=== PATIENT | female | born 1990 | race Caucasian/White ===

== ENCOUNTER 2021-06-23 14:37 | Emergency (ER) | payer OTHER, SELFPAY ==
[2021-06-23 14:48] VITALS: BP 121/69; PULSE 83; RESP 14; TEMP 37.3; O2SAT 100
--- NOTE | 2021-06-23 15:01 | ED.EAR ---
HPI - Ear Problem General Chief complaint: Ear Stated complaint: Left Ear Pain Time Seen by Provider: 06/23/21 15:01 Source: patient History of Present Illness HPI Narrative: PATIENT PRESENTS WITH LEFT EAR PAIN. DENIES ANY OTHER INJURIES. NO DRAINAGE FROM EAR. NO HEARING LOSS. Related Data Home Medications Medication Instructions Recorded Confirmed norethindrone-e.estradiol-iron 1 tablet PO DAILY 06/23/21 06/23/21 [05/31 (28)] Allergies Allergy/AdvReac Type Severity Reaction Status Date / Time cephalexin [From Keflex] Allergy Rash Verified 06/23/21 14:57 latex Allergy Rash Verified 06/23/21 14:57 sulfamethoxazole Allergy Rash Verified 06/23/21 14:57 [From Bactrim] trimethoprim [From Bactrim] Allergy Rash Verified 06/23/21 14:57 Review of Systems Review of Systems: CONSTITUTIONAL: Denies fever, chills, or sweats. EYES: Denies visual changes, redness, or discharge. ENT: Denies rhinorrhea, congestion, sore throat, or otalgia. CARDIOVASCULAR: Denies chest pain, palpitations, or edema. RESPIRATORY: Denies cough or dyspnea. GASTROINTESTINAL: Denies abdominal pain, nausea, vomiting, or diarrhea. GENITOURINARY: Denies dysuria or hematuria. SKIN: Denies rash or itching. MUSCULOSKELETAL: Denies back pain, joint pain, or myalgia. NEUROLOGIC: Denies headache, numbness, or weakness. PSYCHIATRIC: Denies anxiety or depression. PMFSH Comments At time of signature, agree with nursing past medical, surgical, social and family history. There is no relevant family history pertinent to the presenting complaint Exam Narrative: GENERAL: Well-appearing, well-nourished, and in no acute distress. HEAD: Normocephalic, atraumatic. EYES: PERRLA and EOMI. ENT: Nares clear, no rhinorrhea or epistaxis. Mucous membranes moist. Right TM intact with good light reflex left TM bulging moderate erythremia to the left canal NECK: Supple. CHEST: Clear to auscultation. No respiratory distress. HEART: Regular rate and rhythm. No murmur heard. Normal peripheral pulses. ABDOMEN: Soft, nontender, nondistended, normal active bowel sounds. EXTREMITIES: Normal range of motion. No edema. SKIN: Warm, dry, no rash. NEURO: No focal deficits. Alert and oriented x3. [place] Coma Scale Eye Opening: Spontaneous 4 [place] Coma Scale Motor: Obeys Commands 6 [place] Coma Scale Verbal: Oriented 5 Jw Coma Scale Total 15 Course Course Level of Care: Express Care Visit Medical Decision Making Vital Signs Vital Signs: Addressed elevated BP today. Today's blood pressure higher than recommended range. 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 Currently patient denies headache, dizziness, vision changes, CP or shortness of breath. Critical Care Time Critical Care Time Critical Care Time: No Discharge Plan Discharge Clinical Impression: Otitis media Patient Disposition: Home, Self-Care Condition: Stable Instructions: Antibiotic Form, Earache (ED) Additional Instructions: Take antibiotic as prescribed until gone Tylenol and ibuprofen as needed for pain or discomfort Flonase 2 sprays each nostril twice a day for the next 2 weeks Follow-up with primary care provider as needed If any new or worsening symptoms go to ER immediately for further evaluation treatment Prescriptions: New amoxicillin 875 mg tablet 875 mg PO Q12H 7 Days Qty: 14 RF: 0 No Action norethindrone-e.estradiol-iron [05/31 (28)] 1 mg-20 mcg (21)/75 mg (7) Tablet 1 tablet PO DAILY RF: 0 Follow-up/Referrals: Paulo,Jacquelyn Arroyo DO [Primary Care Provider] -
== END 2021-06-23 15:12 | disposition home or self-care (01) ==
PROVIDERS: Emergency Provider Nurse Practitioner Family; PCP Family Medicine
DX: H66.92 Otitis media, unspecified, left ear (principal)
CPT/HCPCS: 99213; G0463

== ENCOUNTER 2024-07-07 08:35 | Emergency (ER) | payer OTHER, SELFPAY ==
[2024-07-07 08:49] VITALS: BP 133/58; PULSE 96; RESP 16; TEMP 36.6; O2SAT 100
--- OUTSIDE RECORDS SUMMARY | 2024-07-07 08:59 | XMS_ITS | Data Portability ---
[facility] Address [address] [place] [address] Care Team Providers Care Tape Keller Operator Name Role Phone JACK GORDILLO Agri Business Agent Assessment Encounter Date Assessment Date Assessment LastModified by Organization Details LastModified Time 04/15/2024 04/15/2024 will get materniti 21 precerted NOB visit in 2 weeks Not available 04/15/2024 11:55:39 04/28/2024 04/28/2024 9 weeks, early US for dates and nuchal fold thickness Not available 04/28/2024 12:01:51 05/20/2024 05/20/2024 9 4/7 weeks, OB labs and materniti testing today Not available 05/20/2024 11:11:30 06/01/2024 06/01/2024 11 weeks, good FHTs today materniti test normal f/u 4 weeks Not available 06/01/2024 10:20:03 06/29/2024 06/29/2024 15 weeks, will be thitd baby doing well Not available 06/29/2024 10:33:13 Plan of Treatment Reminders Order Date Submit Date Provider Last Modified By Organization Details Last Modified Time Details Appointments OB 15 2024 09:00A Himanshu Gordillo MD Not available Not available Not available Lab urinalysi s, dipstick 2024 025 In-Office Order, Internal Use Only DO Not Attach Compendium DO Not Attach Compendium, Do Not Delete/merge, [id number] 06/29/2024 10:26:43 urinalysi s, dipstick 2024 025 In-Office Order, Internal Use Only DO Not Attach Compendium DO Not Attach Compendium, Do Not Delete/merge, [id number] 06/01/2024 11:20:46 urinalysi s, complete 2024 025 [facility] [address] [address], [place], [address], 06/04/2024 11:11:37 urinalysi s, dipstick 2024 025 In-Office Order, Internal Use Only DO Not Attach Compendium DO Not Attach Compendium, Do Not Delete/merge, [id number] 05/20/2024 11:06:06 HSV 2 IgG Ab, QN, IA, serum 2024 025 [facility], [address] [place] [address], [address], 05/26/2024 16:13:36 aneuploid y risk and X & Y analysis, chromosom e specific circulati ng cell free (CCF) DNA, maternal serum 2024 025 [facility], [address] [place], [place] [address], [address], [place], [address], 05/26/2024 16:13:37 panel 2023 024 [facility]gr[facility], [address] [facility] [address], [address], [place], [address], 05/27/2024 09:15:36 drug screen, urine 2023 024 [facility], [address] [address], [place], [address], 06/04/2024 11:11:36 HSV 2 IgG Ab, QN, IA, serum 2023 024 [facility], [address] [facility], [facility] [address], [place], [address], 05/27/2024 09:15:37 Referral None recorded. Procedures None recorded. Surgeries None recorded. Imaging US, obstetric , maternal evaluatio n + anatomy - Single gestation 2024 025 [facility], [address] [facility], [place], [address], 06/29/2024 10:26:54 US, obstetric , 1st trimester 2023 024 [facility] (Scheduling), [address], [place], [address], 05/10/2024 14:50:49 Medication Orders None recorded. Patient TargetsNo targets recorded. Patient Instructions Encounter Date Encounter Id Patient Instructions Last Modified By Organization Details Last Modified Time 04/28/2024 [id number] edinburgh depression scale* Not available 04/28/2024 11:49:01 Reason for Referral None Reported. Results Created Date Observation Date Name Description Value Unit Range Abnormal Flag Note LastModifiedBy Organization Detail LastModifiedTime 04/28/20 24 04/28/2024 edinb urgh postn atal depre ssion scale * Score 1 Not Available In-Office Order Internal Use Only DO Not Attach Compendium DO Not Attach Compendium, Do Not Delete/merge, [id number] 04/28/2024 11:33:44 05/20/19 25 05/21/2024 INTER PRETA TION: interpretati on: Commen t Not infec maryana with HCV unles s early or acute infec tion is suspe cted (whic h may be delay ed in an immun ocomp romis ed indiv idual ), or other evide nce exist s to indic ate HCV infec tion. Not Available [facility] [address] [facility], [place], [address], 05/26/2024 16:13:34 05/20/19 25 05/21/2024 HCV ANTIB NESSA RFX TO QUANT PCR HCV Ab NON REACTI VE nonrea ctive Not Available [facility] [address] [facility], [place], [address], 05/26/2024 16:13:35 05/20/19 25 05/21/2024 HSV-2 AB, IGG hsv 2 IgG, type spec NON REACTI VE nonrea ctive Ple ase note refer ence inter zohaib tijerina e Curre nt guide lines and recom menda tions do not recom mend routi ne scree desiree for HSV-2 in asymp tomat ic indiv idual s, inclu ding those that are pregn ant. The detec tion of HSV-2 IgG antib odies in a singl e sampl e indic ates previ ous expos ure to HSV-2 but does not give infor matio n as to the site of HSV infec tion or the timin g of expos ure. The predi ctive value of posit sergio and negat sergio resul ts depen ds on the popul ation 's preva lence and the prete st likel ihood of HSV-2 . HSV-2 IgG testi ng perfo rmed using the [employer] HSV-2 IgG assay . Not Available [facility] [address] [facility], [place], [address], 05/26/2024 16:13:36 05/20/19 25 05/26/2024 MATER NIT21 PLUS CORE gestation SINGLE TON Not Available [facility] [address] [facility], [place], [address], 05/26/2024 16:13:37 05/20/19 25 05/26/2024 MATER NIT21 PLUS CORE fraction NA Not Available [facility] [address] [facility], [place], [address], 05/26/2024 16:13:37 05/20/19 25 05/26/2024 MATER NIT21 PLUS CORE gestational age > or = 9W: COMMEN T Not Provi ded Not Available [facility] [address] [place], [address], 05/26/2024 16:13:37 05/20/19 25 05/26/2024 MATER NIT21 PLUS CORE test result - abnormal Test not perfo rmed. Not Available [facility] [address] [place], [address], 05/26/2024 16:13:37 05/20/19 25 05/26/2024 MATER NIT21 PLUS CORE laborer electroplating comments TNP Test not perfo rmed. Gallito adkins tests order ed. For inqui andrew, the physi luigi may conta ct Clien t Servi nely at [phone]. Not Available [facility] [address] [place], [address], 05/26/2024 16:13:37 05/20/19 25 05/26/2024 MATER NIT21 PLUS CORE approved by TNP Zach yuri mirza MD, PhD, [employer], Seque nom Labor atori es Not Available [facility] [address] [place], [address], 05/26/2024 16:13:37 05/20/19 25 05/26/2024 MATER NIT21 PLUS CORE negative predictive value TNP The Negat sergio Predi ctive Value (NPV) for triso my 21, 18, and 13 is great er than 99%. The NPV for SCA and ESS canno t be calcu lated as SCA and ESS are only repor maryana when an abnor malit y is detec maryana. Not Available [facility] [address] [place], [address], 05/26/2024 16:13:37 05/20/19 25 05/26/2024 MATER NIT21 PLUS CORE about the test TNP The Mater niT(R ) 21 PLUS labor atory -deve loped test (LDT) derrick zes circu latin g cell- free DNA from a mater nal blood sampl e. This test is used for scree desiree purpo ses and not diagn ostic . Clini ascencion corre latio n is recom fernandez d. Valid ation data on twin pregn ancie s is limit ed and the abili ty of this test to detec t aneup loidy in highe r multi ple gesta tions has not yet been valid ated. Not Available [facility] [address] [facility], [place], [address], 05/26/2024 16:13:37 05/20/19 25 05/26/2024 MATER NIT21 PLUS CORE test method TNP Circu latin g cell- free DNA was purif ied from the plasm a compo nent of mater nal blood . The extra cted DNA was then conve rted into a [employer] luis ry for aneup loidy derrick sis of chrom osome s 21, 18, and 13 via next gener ation seque ncing .[1] Optio nal findi ngs based on the test order inclu de sex chrom osome aneup loidy (SCA) [2], and enhan alfonso seque ncing serie s (ESS) [3], which will only be repor maryana on as an addit ional findi ng when an abnor malit y is detec maryana. SCA testi ng inclu manuel infor matio n on X and Y repre senta tion, while ESS testi ng inclu manuel delet ions in selec maryana regio ns (22q, 15q, 11q, 8q, 5p, 4p, 1p) and triso my of chrom osome s 16 and 22. Not Available [facility] [address] [facility], [place], [address], 05/26/2024 16:13:37 05/20/19 25 05/26/2024 MATER NIT21 PLUS CORE performance TNP The perfo rmanc e hugh cteri stics of the Mater niT(R ) 21 PLUS labor atory -deve loped test (LDT) have been deter mined in a clini ascencion valid ation study with pregn ant women at incre ased risk for chrom osoma l aneup loidy .[1-4 ] Not Available [facility] [address] [facility], [place], [address], 05/26/2024 16:13:37 05/20/19 25 05/26/2024 MATER NIT21 PLUS CORE performance characterist ics TNP ----- ----- ----- ----- ----- ----- ----- ----- ----- ----- ----- ---- ! Sex ! Accur acy: 99.4% ! !---- ----- ----- ----- ----- ----- ----- ----- ----- ----- ----- ---! ! Regio n (ann lassiter syndr ome) ! Est. Sens# ! Est. Spec ! !---- ----- ----- ----- ----- ----- ----- ----- ----- ----- ----- ---! ! Neno my 21 (Jordan Syndr ome) ! 99.1% ! 99.9% ! !---- ----- ----- ----- ----- ----- ----- ----- ----- ----- ----- ---! ! Neno my 18 (Nataly murcia Syndr ome) ! >99.9 % ! 99.6% ! !---- ----- ----- ----- ----- ----- ----- ----- ----- ----- ----- ---! ! Neno my 13 (Pata u Syndr ome) ! 91.7% ! 99.7% ! !---- ----- ----- ----- ----- ----- ----- ----- ----- ----- ----- ---! ! Sex Chrom osome Aneup justin es## ! 96.2% ! 99.7% ! !---- ----- ----- ----- ----- ----- ----- ----- ----- ----- ----- ---! * As repor maryana in ISCA datab ase nstd3 7 [http [email or web address] [email or web address].nc [email or web address] .[facility] .gov/ dbvar /stud ies/n std37 / ] # Estim ated Sensi tivit y. Sensi tivit y estim ated acros s the obser gatito size distr ibuti on of each syndr ome [per ISCA datab ase nstd3 7] and acros s the range of fract ions obser gatito in routi ne clini ascencion NIPT. Actua l sensi tivit y can also be influ enced by other facto rs such as the size of the event , total seque nce count s, ampli ficat ion bias, or seque nce bias. ## Singl eton gesta tion only. Not Available [facility] [address] [facility], [place], [address], 05/26/2024 16:13:37 05/20/19 25 05/26/2024 MATER NIT21 PLUS CORE limitations of the test TNP While the resul ts of these tests are highl y relia ble, disco rdant resul ts, inclu ding inacc urate sex predi ction , may occur due to place ntal, mater nal, or mosai cism or neopl asm; vanis natalee twin; prior mater nal organ trans plant ; or other cause s. These tests are scree desiree tests and not diagn ostic ; they do not repla ce the accur acy and preci eleanor of prena daniela diagn osis with CVS or amnio cente sis. A patie nt with a posit sergio test resul t shoul d be refer red for andrea ic couns eling and offer ed invas sergio prena daniela diagn osis for confi rmati on of test resul ts.[5 ] The resul ts of this testi ng, inclu ding the benef its and limit ation s, shoul d be discu ssed with a quali fied healt hcare provi ilana. Pregn miki manag ement decis ions, inclu ding termi natio n of the pregn miki, shoul d not be based on the resul ts of these tests alone . The healt hcare provi ilana is respo nsibl e for the use of this infor matio n in the manag ement of their patie nt. Sex chrom osoma l aneup loidi es are not repor table for known multi ple gesta tions . A negat sergio resul t does not ensur e an unaff ected pregn miki nor does it exclu de the possi bilit y of other chrom osoma l abnor malit ies or defec ts which are not a part of these tests . An uninf ormat sergio resul t may be repor maryana, the cause s of which may inclu de, but are not limit ed to, insuf ficie nt seque ncing cover age, noise or artif acts in the regio n, ampli ficat ion or seque ncing bias, or insuf ficie nt fract ion. These tests are not inten ded to ident brittney pregn ancie s at risk for neura l tube defec ts or ventr al wall defec ts. Testi ng for whole chrom osome abnor malit ies (incl uding sex chrom osome s) and for subch romos omal abnor malit ies could lead to the poten tial disco very of both and mater nal genom ic abnor malit ies that could have major , minor , or no, clini ascencion signi fican ce. Evalu ating the signi fican ce of a posit sergio or a non-r eport able resul t may invol ve both invas sergio testi ng and addit ional studi es on the mothe r. Such inves tigat ions may lead to a diagn osis of mater nal chrom osoma l or subch romos omal abnor malit ies, which on occas ion may be assoc iated with benig n or malig nant mater nal neopl asms. These tests may not accur ately ident brittney tripl oidy, carol alfonso rearr angem ents, or the preci se locat ion of subch romos omal dupli catio ns or delet ions; these may be detec maryana by prena daniela diagn osis with CVS or amnio cente sis. The abili ty to repor t resul ts may be impac maryana by mater nal BMI, mater nal weigh t, mater nal syste gabriel lupus eryth emato cristian (SLE) and/o r by certa in pharm aceut ical agent s such as low molec ular weigh t hepar in (for examp le: Loven ox(R) , Xapar in(R) , Clexa ne(R) and Fragm in(R) ). Not Available [facility] [address] [facility], [place], [address], 05/26/2024 16:13:37 05/20/19 25 05/26/2024 MATER NIT21 PLUS CORE note TNP [employer] is a subsi diary of Labor atory Corpo ratio n of [employer] edith long, using the brand [employer]. This test was devel oped and its perfo rmanc e hugh cteri stics deter mined by efw-suhl rp. It has not been clear ed or appro gatito by the Food and Drug Admin istra tion. This labor atory is certi fied under the Clini ascencion Labor atory Impro vemen t Amend ments (CLIA ) as quali fied to perfo rm high compl exity clini ascencion labor atory testi ng and accre dited by the [place] [employer] S[pecialists can Patho logis ts (CAP) . Not Available [facility] [address] [facility], [place], [address], 05/26/2024 16:13:37 05/20/19 25 05/26/2024 MATER NIT21 PLUS CORE references TNP 1. Thor RAMOS, et al. Andrea Med. 2012; 14(3) :296- 305. 2. George WOODRUFF, et al. Prena t Diag. 2013; 33(6) :591- 597. 3. Tom Alcantara et al. Clin Chem. 2015 Apr;6 1(4): 608-6 16. 4. Thor RAMOS, et al. Andrea Med. 2011; 13(11 ):913 -920. 5. ACOG/ SMFM Pract ice Bulle tin No. 226, Feb 2020. Not Available [facility] [address] [facility], [place], [address], 05/26/2024 16:13:37 05/20/19 25 05/26/2024 MATER NIT21 PLUS CORE pdf . Not Available [facility] [address] [place], [address], 05/26/2024 16:13:37 05/20/19 25 05/21/2024 CBC WITH DIFFE RENTI AL/PL ATELE T WBC 8.8 x10e3 /uL 3.4-10 .8 Not Available [facility] [address] [facility], [place], [address], 05/26/2024 16:13:38 05/20/19 25 05/21/2024 CBC WITH DIFFE RENTI AL/PL ATELE T RBC 4.68 x10e6 /uL 3.77-5 .28 Not Available [facility] [address] [place], [address], 05/26/2024 16:13:38 05/20/19 25 05/21/2024 CBC WITH DIFFE RENTI AL/PL ATELE T hemoglobin 13.9 g/dL 11.1-1 5.9 Not Available [facility] [address] [place], [address], 05/26/2024 16:13:38 05/20/19 25 05/21/2024 CBC WITH DIFFE RENTI AL/PL ATELE T hematocrit 41.7 % 34.0-4 6.6 Not Available [facility] [address] [facility], [place], [address], 05/26/2024 16:13:38 05/20/19 25 05/21/2024 CBC WITH DIFFE RENTI AL/PL ATELE T MCV 89 fL 79-97 Not Available [facility] [address] [facility], [place], [address], 05/26/2024 16:13:38 05/20/19 25 05/21/2024 CBC WITH DIFFE RENTI AL/PL ATELE T MCH 29.7 pg 26.6-3 3.0 Not Available [facility] [address] [facility], [place], [address], 05/26/2024 16:13:38 05/20/19 25 05/21/2024 CBC WITH DIFFE RENTI AL/PL ATELE T MCHC 33.3 g/dL 31.5-3 5.7 Not Available [facility] [address] [place], [address], 05/26/2024 16:13:38 05/20/19 25 05/21/2024 CBC WITH DIFFE RENTI AL/PL ATELE T RDW 12.6 % 11.7-1 5.4 Not Available [facility] [address] [place], [address], 05/26/2024 16:13:38 05/20/19 25 05/21/2024 CBC WITH DIFFE RENTI AL/PL ATELE T platelets 285 x10e3 /uL 150-45 0 Not Available [facility] [address] [place], [address], 05/26/2024 16:13:38 05/20/19 25 05/21/2024 CBC WITH DIFFE RENTI AL/PL ATELE T neutrophils 65 % notest ab. Not Available [facility] [address] [facility], [place], [address], 05/26/2024 16:13:38 05/20/19 25 05/21/2024 CBC WITH DIFFE RENTI AL/PL ATELE T lymphs 22 % notest ab. Not Available [facility] [address] [facility], [place], [address], 05/26/2024 16:13:38 05/20/19 25 05/21/2024 CBC WITH DIFFE RENTI AL/PL ATELE T monocytes 8 % notest ab. Not Available [facility] [address] [facility], [place], [address], 05/26/2024 16:13:38 05/20/19 25 05/21/2024 CBC WITH DIFFE RENTI AL/PL ATELE T eos 3 % notest ab. Not Available [facility] [address] [facility], [place], [address], 05/26/2024 16:13:38 05/20/19 25 05/21/2024 CBC WITH DIFFE RENTI AL/PL ATELE T basos 1 % notest ab. Not Available [facility] [address] [facility], [place], [address], 05/26/2024 16:13:38 05/20/19 25 05/21/2024 CBC WITH DIFFE RENTI AL/PL ATELE T neutrophils (absolute) 5.8 x10e3 /uL 1.4-7. 0 Not Available [facility] [address] [facility], [place], [address], 05/26/2024 16:13:38 05/20/19 25 05/21/2024 CBC WITH DIFFE RENTI AL/PL ATELE T lymphs (absolute) 1.9 x10e3 /uL 0.7-3. 1 Not Available [facility] [address] [facility], [place], [address], 05/26/2024 16:13:38 05/20/19 25 05/21/2024 CBC WITH DIFFE RENTI AL/PL ATELE T monocytes(ab solute) 0.7 x10e3 /uL 0.1-0. 9 Not Available [facility] [address] [facility], [place], [address], 05/26/2024 16:13:38 05/20/19 25 05/21/2024 CBC WITH DIFFE RENTI AL/PL ATELE T eos (absolute) 0.3 x10e3 /uL 0.0-0. 4 Not Available [facility] [address] [facility], [place], [address], 05/26/2024 16:13:38 05/20/19 25 05/21/2024 CBC WITH DIFFE RENTI AL/PL ATELE T baso (absolute) 0.1 x10e3 /uL 0.0-0. 2 Not Available [facility] [address] [facility], [place], [address], 05/26/2024 16:13:38 05/20/19 25 05/21/2024 CBC WITH DIFFE RENTI AL/PL ATELE T immature granulocytes 1 % notest ab. Not Available [facility] [address] [facility], [place], [address], 05/26/2024 16:13:38 05/20/19 25 05/21/2024 CBC WITH DIFFE RENTI AL/PL ATELE T immature grans (abs) 0.0 x10e3 /uL 0.0-0. 1 Not Available [facility] [address] [facility], [place], [address], 05/26/2024 16:13:38 05/20/19 25 05/21/2024 ANTIB NESSA SCREE N antibody screen NEGATI VE negati ve Not Available [facility] [address] [place], [address], 05/26/2024 16:13:40 05/20/19 25 05/21/2024 ABO GROUP ING AND RHO(D ) TYPIN G ABO grouping A Not Available [facility] [address] [place], [address], 05/26/2024 16:13:41 05/20/19 25 05/21/2024 ABO GROUP ING AND RHO(D ) TYPIN G Rh factor NEGATI VE Pleas e note: Prior recor ds for this patie nt's ABO / Rh type are not avail able for addit ional verif icati on. Not Available [facility] [address] [facility], [place], [address], 05/26/2024 16:13:41 05/20/19 25 05/21/2024 RUBEL LA ANTIB ODIES , IGG rubella antibodies, IgG 18.60 index immune >0.99 Non-i mmune <0.90 Equiv ocal 0.90 - 0.99 Immun e >0.99 Not Available [facility] [address] [place], [address], 05/26/2024 16:13:42 05/20/19 25 05/21/2024 HBSAG SCREE N HBsAg screen NEGATI VE negati ve Not Available [facility] [address] [place], [address], 05/26/2024 16:13:43 05/20/19 25 05/21/2024 RPR, RFX QN RPR/C ONFIR M TP RPR NON REACTI VE nonrea ctive Not Available [facility] [address] [place], [address], 05/26/2024 16:13:44 05/20/19 25 05/21/2024 HIV AB/P2 4 AG WITH REFLE X HIV Ab/P24 Ag screen NON REACTI VE nonrea ctive HIV-1 /HIV- 2 antib odies and HIV-1 p24 antig en were NOT detec maryana. There is no labor atory evide nce of HIV infec tion. HIV Negat sergio Not Available [facility] [address] [facility], [place], [address], 05/26/2024 16:13:45 05/20/19 25 05/28/2024 MATER NIT21 PLUS CORE gestation SINGLE TON Not Available [facility] [address] [facility], [place], [address], 05/28/2024 16:13:51 05/20/19 25 05/28/2024 MATER NIT21 PLUS CORE fraction 14% Not Available [facility] [address] [facility], [place], [address], 05/28/2024 16:13:51 05/20/1905/28/2024 MATER NIT21 PLUS CORE gestational age > or = 9W: COMMEN T Not Provi ded Not Available [facility] [address] [facility], [place], [address], 05/28/2024 16:13:51 05/20/19 25 05/28/2024 MATER NIT21 PLUS CORE test result NEGATI VE Not Available [facility] [address] [facility], [place], [address], 05/28/2024 16:13:51 05/20/1905/28/2024 MATER NIT21 PLUS CORE laborer electroplating comments COMMEN T This speci men showe d an expec maryana repre senta tion of chrom osome 21, 18 and 13 mater ial. Clini ascencion corre latio n is sugrachel tariqd. Not Available [facility] [address] [facility], [place], [address], 05/28/2024 16:13:51 05/20/19 25 05/28/2024 MATER NIT21 PLUS CORE approved by CARLOS mirza MD, PhD, [facility] tor, Seque nom Labor atori es Not Available [facility] [address] [place], [address], 05/28/2024 16:13:51 05/20/19 25 05/28/2024 MATER NIT21 PLUS CORE trisomy 21 (down syndrome) NEGATI VE Not Available [facility] [address] [place], [address], 05/28/2024 16:13:51 05/20/19 25 05/28/2024 MATER NIT21 PLUS CORE trisomy 18 (kruger syndrome) NEGATI VE Not Available [facility] [address] [place], [address], 05/28/2024 16:13:51 05/20/19 25 05/28/2024 MATER NIT21 PLUS CORE trisomy 13 (patau syndrome) NEGATI VE Not Available [facility] [address] [place], [address], 05/28/2024 16:13:51 05/20/19 25 05/28/2024 MATER NIT21 PLUS CORE sex CARLOS Stoner Consi stent with Femal e Not Available [facility] [address] [place], [address], 05/28/2024 16:13:51 05/20/1905/28/2024 MATER NIT21 PLUS CORE negative predictive value NOTE The Negat sergio Predi ctive Value (NPV) for triso my 21, 18, and 13 is great er than 99%. The NPV for SCA and ESS canno t be calcu lated as SCA and ESS are only repor maryana when an abnor malit y is detec maryana. Not Available [facility] [address] [facility], [place], [address], 05/28/2024 16:13:51 05/20/1905/28/2024 MATER NIT21 PLUS CORE positive predictive value N/A Not Available [facility] [address] [facility], [place], [address], 05/28/2024 16:13:51 05/20/19 25 05/28/2024 MATER NIT21 PLUS CORE about the test COMMEN T The Mater niT(R ) 21 PLUS labor atory -deve loped test (LDT) derrick zes circu latin g cell- free DNA from a mater nal blood sampl e. This test is used for scree desiree purpo ses and not diagn ostic . Clini ascencion corre latio n is recom fernandez d. Valid ation data on twin pregn ancie s is limit ed and the abili ty of this test to detec t aneup loidy in highe r multi ple gesta tions has not yet been valid ated. Not Available [facility] [address] [facility], [place], [address], 05/28/2024 16:13:51 05/20/1905/28/2024 MATER NIT21 PLUS CORE test method COMMEN T See Notes Circu latin g cell- free DNA was purif ied from the plasm a compo nent of mater nal blood . The extra cted DNA was then conve rted into a [employer] luis ry for aneup loidy derrick sis of chrom osome s 21, 18, and 13 via next gener ation seque ncing .[1] Optio nal findi ngs based on the test order inclu de sex chrom osome aneup loidy (SCA) [2], and enhan alfonso seque ncing serie s (ESS) [3], which will only be repor maryana on as an addit ional findi ng when an abnor malit y is detec maryana. SCA testi ng inclu manuel infor matio n on X and Y repre senta tion, while ESS testi ng inclu manuel delet ions in selec maryana regio ns (22q, 15q, 11q, 8q, 5p, 4p, 1p) and triso my of chrom osome s 16 and 22. Not Available [facility] [address] [facility], [place], [address], 05/28/2024 16:13:51 05/20/19 25 05/28/2024 MATER NIT21 PLUS CORE performance COMMEN T The perfo rmanc e hugh cteri stics of the Mater niT(R ) 21 PLUS labor atory -deve loped test (LDT) have been deter mined in a clini ascencion valid ation study with pregn ant women at incre ased risk for chrom osoma l aneup loidy .[1-4 ] Not Available [facility] [address] [facility], [place], [address], 05/28/2024 16:13:51 05/20/19 25 05/28/2024 MATER NIT21 PLUS CORE performance characterist ics NOTE ----- ----- ----- ----- ----- ----- ----- ----- ----- ----- ----- ---- ! Sex ! Accur acy: 99.4% ! !---- ----- ----- ----- ----- ----- ----- ----- ----- ----- ----- ---! ! Regio n (asso ciate d syndr ome) ! Est. Sens# ! Est. Spec ! !---- ----- ----- ----- ----- ----- ----- ----- ----- ----- ----- ---! ! Triso my 21 (Down Syndr ome) ! 99.1% ! 99.9% ! !---- ----- ----- ----- ----- ----- ----- ----- ----- ----- ----- ---! ! Neno my 18 (Edwa rds Syndr ome) ! >99.9 % ! 99.6% ! !---- ----- ----- ----- ----- ----- ----- ----- ----- ----- ----- ---! ! Neno my 13 (Pata u Syndr ome) ! 91.7% ! 99.7% ! !---- ----- ----- ----- ----- ----- ----- ----- ----- ----- ----- ---! ! Sex Chrom osome Aneup loidi es## ! 96.2% ! 99.7% ! !---- ----- ----- ----- ----- ----- ----- ----- ----- ----- ----- ---! * As repor maryana in ISCA datab ase nstd3 7 [http [email or web address] [email or web address]/ [email or web address] /stud ies/n std37 / ] # Estim ated Sensi tivit y. Sensi tivit y estim ated acros s the obser gatito size distr ibuti on of each syndr ome [per ISCA datab ase nstd3 7] and acros s the range of fract ions obser gatito in routi ne clini ascencion NIPT. Actua l sensi tivit y can also be influ enced by other facto rs such as the size of the event , total seque nce count s, ampli ficat ion bias, or seque nce bias. ## Singl eton gesta tion only. Not Available [facility] [address] [facility], [place], [address], 05/28/2024 16:13:51 05/20/19 25 05/28/2024 MATER NIT21 PLUS CORE limitations of the test COMMEN T While the resul ts of these tests are highl y relia ble, disco rdant resul ts, inclu ding inacc urate sex predi ction , may occur due to place ntal, mater nal, or mosai cism or neopl asm; vanis natalee twin; prior mater nal organ trans plant ; or other cause s. These tests are scree desiree tests and not diagn ostic ; they do not repla ce the accur acy and preci eleanor of prena daniela diagn osis with [facility] or amnio cente sis. A patie nt with a posit sergio test resul t shoul d be refer red for andrea ic couns eling and offer ed invas sergio prena daniela diagn osis for confi rmati on of test resul ts.[5 ] The resul ts of this testi ng, inclu ding the benef its and limit ation s, shoul d be discu ssed with a quali fied healt hcare provi ilana. Pregn miki manag ement decis ions, inclu ding termi natio n of the pregn miki, shoul d not be based on the resul ts of these tests alone . The healt hcare provi ilana is respo nsibl e for the use of this infor matio n in the manag ement of their patie nt. Sex chrom osoma l aneup loidi es are not repor table for known multi ple gesta tions . A negat sergio resul t does not ensur e an unaff ected pregn miki nor does it exclu de the possi bilit y of other chrom osoma l abnor malit ies or defec ts which are not a part of these tests . An uninf ormat sergio resul t may be repor maryana, the cause s of which may inclu de, but are not limit ed to, insuf ficie nt seque ncing cover age, noise or artif acts in the regio n, ampli ficat ion or seque ncing bias, or insuf ficie nt fract ion. These tests are not inten ded to ident brittney pregn ancie s at risk for neura l tube defec ts or ventr al wall defec ts. Testi ng for whole chrom osome abnor malit ies (incl uding sex chrom osome s) and for subch romos omal abnor malit ies could lead to the poten tial disco very of both and mater nal genom ic abnor malit ies that could have major , minor , or no, clini ascencion signi fican ce. Evalu ating the signi fican ce of a posit sergio or a non-r eport able resul t may invol ve both invas sergio testi ng and addit ional studi es on the mothe r. Such inves tigat ions may lead to a diagn osis of mater nal chrom osoma l or subch romos omal abnor malit ies, which on occas ion may be assoc iated with benig n or malig nant mater nal neopl asms. These tests may not accur ately ident brittney tripl oidy, carol alfonso rearr angem ents, or the preci se locat ion of subch romos omal dupli catio ns or delet ions; these may be detec maryana by prena daniela diagn osis with [facility] or amnio cente sis. The abili ty to repor t resul ts may be impac maryana by mater nal BMI, mater nal weigh t, mater nal syste gabriel lupus eryth emato cristian (SLE) and/o r by certa in pharm aceut ical agent s such as low molec ular weigh t hepar in (for examp le: Loven ox(R) , Xapar in(R) , Clexa ne(R) and Fragm in(R) ). Not Available [facility] [address] [facility], [place], [address], 05/28/2024 16:13:51 05/20/19 25 05/28/2024 MATER NIT21 PLUS CORE note COMMEN T See Notes [employer] is a subsi diary of Labor atory Corpo ratio n of [employer] n[employer], using the brand efw-suhl rp. This test was devel oped and its perfo rmanc e hugh cteri stics deter mined by [facility]. It has not been clear ed or appro gatito by the Food and Drug Admin istra tion. This labor atory is certi fied under the Clini ascencion Labor atory Impro vemen t Amend ments (CLIA ) as quali fied to perfo rm high compl exity clini ascencion labor atory testi ng and accre dited by the [place] [employer] [place] can Patho logis ts (CAP) . If there is futur e clini ascencion need for addin g Mater niT GENOM E testi ng, this speci men will be avail able until term. [facility] sampl es will not be retai ramírez beyon d 60 days. [facility] patie nts will have to send a new sampl e for re-se quenc ing ([facility] Test Code: 27099 4). Not Available [facility] [address] [facility], [place], [address], 05/28/2024 16:13:51 05/20/19 25 05/28/2024 MATER NIT21 PLUS CORE references COMMEN T 1. Thor RAMOS, et al. Andrea Med. 2012; 14(3) :296- 305. 2. George WOODRUFF, et al. Prena t Diag. 2013; 33(6) :591- 597. 3. Tom C, et al. Clin Chem. 2015 Aug;6 1(4): 608-6 16. 4. Thor RAMOS, et al. Andrea Med. 2011; 13(11 ):913 -920. 5. ACOG/ [facility] Pract ice Bulle tin No. 226, Feb 2020. Not Available [facility] [address] [facility], [place], [address], 05/28/2024 16:13:51 05/20/19 25 05/28/2024 MATER NIT21 PLUS CORE pdf . Not Available [facility] [address] [facility], [place], [address], 05/28/2024 16:13:51 0105/26/2024 WRITT EN AUTHO RIZAT ION written authorizatio n Carlos Leblanc en Autho rizat ion Recei gatito. Autho rizat ion recei gatito from [facility] ON /[facility] 05-26 Logge d by Petey Spencer Not Available [facility] [address] [facility], [place], [address], 05/28/2024 16:13:52 05/20/1905/20/2024 urina lysis , dipst ick Protein Trace Not Available In-Office Order Internal Use Only DO Not Attach Compendium DO Not Attach Compendium, Do Not Delete/merge, [id number] 05/20/2024 10:59:36 05/20/19 25 05/20/2024 urina lysis , dipst ick Glucose Negati ve Not Available In-Office Order Internal Use Only DO Not Attach Compendium DO Not Attach Compendium, Do Not Delete/merge, [id number] 05/20/2024 10:59:36 06/01/19 25 06/02/2024 CT, NG, TRICH VAG BY RAJAT chlamydia by RAJAT NEGATI VE negati ve Not Available [facility] [address] [facility], [place], [address], 06/04/2024 11:11:34 06/01/19 25 06/02/2024 CT, NG, TRICH VAG BY RAJAT gonococcus by RAJAT NEGATI VE negati ve Not Available [facility] [address] [place], [address], 06/04/2024 11:11:34 06/01/19 25 06/02/2024 CT, NG, TRICH VAG BY RAJAT trich vag by RAJAT NEGATI VE negati ve Not Available [facility] [address] [facility], [place], [address], 06/04/2024 11:11:34 06/01/19 25 06/02/2024 MICRO SCOPI C EXAMI NATIO N WBC 0-5 /hpf 0-5 Not Available [facility] [address] [facility], [place], [address], 06/04/2024 11:11:35 06/01/19 25 06/02/2024 MICRO SCOPI C EXAMI NATIO N RBC 0-2 /hpf 0-2 Not Available [facility] [address] [facility], [place], [address], 06/04/2024 11:11:35 06/01/19 25 06/02/2024 MICRO SCOPI C EXAMI NATIO N epithelial cells (non renal) >10 /hpf 0-10 abnormal Not Available [facility] [address] [facility], [place], [address], 06/04/2024 11:11:35 06/01/19 25 06/02/2024 MICRO SCOPI C EXAMI NATIO N casts None seen /lpf nonese en Not Available [facility] [address] [facility], [place], [address], 06/04/2024 11:11:35 06/01/19 25 06/02/2024 MICRO SCOPI C EXAMI NATIO N bacteria Modera te nonese en/few abnormal Not Available [facility] [address] [facility], [place], [address], 06/04/2024 11:11:35 06/01/19 25 06/01/2024 [id number] 2 9+OXY CODON E+WHEEL GRINDER -SCR please note: COMMEN T This assay provi manuel a preli minar y uncon firme d derrick tical test resul t that may be suita ble for clini ascencion manag ement of [place] nts in certa in situa tions . Drug- test resul ts shoul d be inter prete d in the mirella xt of clini ascencion infor awa n. [place] nt metab olic varia bles, speci fic drug chemi stry, and speci men hugh cteri stics can affec t test outco me. Techn ical consu ltati on is avail able if a test resul t is incon siste nt with an expec maryana outco me. Email : [email or web address] Phone : [phone] Not Available [facility] [address] [place], [address], 06/04/2024 11:11:36 06/01/19 25 06/03/2024 [id number] 2 9+OXY CODON E+WHEEL GRINDER -SCR amphetamines screen, urine NEGATI VE NG/mL cutoff =1000 Not Available [facility] [address] [place], [address], 06/04/2024 11:11:36 06/01/19 25 06/03/2024 [id number] 2 9+OXY CODON E+WHEEL GRINDER -SCR barbiturates screen, urine NEGATI VE NG/mL cutoff =200 Not Available [facility] [address] [place], [address], 06/04/2024 11:11:36 06/01/19 25 06/03/2024 [id number] 2 9+OXY CODON E+WHEEL GRINDER -SCR benzodiazepi lilia screen, urine NEGATI VE NG/mL cutoff =200 Not Available [facility] [address] [place], [address], 06/04/2024 11:11:36 06/01/19 25 06/03/2024 [id number] 2 9+OXY CODON E+WHEEL GRINDER -SCR cannabinoid screen, urine POSITI VE NG/mL cutoff =20 abnormal Not Available [facility] [address] [place], [address], 06/04/2024 11:11:36 06/01/19 25 06/03/2024 [id number] 2 9+OXY CODON E+WHEEL GRINDER -SCR cocaine (metab.) screen, urine NEGATI VE NG/mL cutoff =300 Not Available [facility] [address] [facility], [place], [address], 06/04/2024 11:11:36 06/01/19 25 06/03/2024 [id number] 2 9+OXY CODON E+WHEEL GRINDER -SCR opiate screen, urine NEGATI VE NG/mL cutoff =300 Opiat e test inclu manuel Codei ne, Morph ine, Filer morph one, Filer codon e. Not Available [facility] [address] [place], [address], 06/04/2024 11:11:36 06/01/19 25 06/03/2024 [id number] 2 9+OXY CODON E+WHEEL GRINDER -SCR oxycodone/ox ymorphone, urine NEGATI VE NG/mL cutoff =100 Test inclu manuel Oxyco done and Oxymo rphon e Not Available [facility] [address] [place], [address], 06/04/2024 11:11:36 06/01/19 25 06/03/2024 [id number] 2 9+OXY CODON E+WHEEL GRINDER -SCR phencyclidin e screen, urine NEGATI VE NG/mL cutoff =25 Not Available [facility] [address] [place], [address], 06/04/2024 11:11:36 06/01/19 25 06/03/2024 [id number] 2 9+OXY CODON E+WHEEL GRINDER -SCR methadone screen, urine NEGATI VE NG/mL cutoff =300 Not Available [facility] [address] [place], [address], 06/04/2024 11:11:36 06/01/19 25 06/03/2024 [id number] 2 9+OXY CODON E+WHEEL GRINDER -SCR propoxyphene screen, urine NEGATI VE NG/mL cutoff =300 Not Available [facility] [address] [place], [address], 06/04/2024 11:11:36 06/01/19 25 06/03/2024 [id number] 2 9+OXY CODON E+WHEEL GRINDER -SCR creatinine, urine 81.2 mg/dL 20.0-3 00.0 Not Available [facility] [address] [facility], [place], [address], 06/04/2024 11:11:36 06/01/19 25 06/03/2024 [id number] 2 9+OXY CODON E+WHEEL GRINDER -SCR pH, urine 6.3 4.5-8. 9 Not Available [facility] [address] [place], [address], 06/04/2024 11:11:36 06/01/19 25 06/02/2024 URINA LYSIS , COMPL ETE specific gravity 1.016 1.005- 1.030 Not Available [facility] [address] [place], [address], 06/04/2024 11:11:37 06/01/19 25 06/02/2024 URINA LYSIS , COMPL ETE pH 6.5 5.0-7. 5 Not Available [facility] [address] [place], [address], 06/04/2024 11:11:37 06/01/19 25 06/02/2024 URINA LYSIS , COMPL ETE urine-color YELLOW yellow Not Available [facility] [address] [place], [address], 06/04/2024 11:11:37 06/01/19 25 06/02/2024 URINA LYSIS , COMPL ETE appearance CLEAR clear Not Available [facility] [address] [place], [address], 06/04/2024 11:11:37 06/01/19 25 06/02/2024 URINA LYSIS , COMPL ETE WBC esterase 1+ negati ve abnormal Not Available [facility] [address] [facility], [place], [address], 06/04/2024 11:11:37 06/01/19 25 06/02/2024 URINA LYSIS , COMPL ETE protein NEGATI VE negati ve/tra ce Not Available [facility] [address] [facility], [place], [address], 06/04/2024 11:11:37 06/01/19 25 06/02/2024 URINA LYSIS , COMPL ETE glucose NEGATI VE negati ve Not Available [facility] [address] [facility], [place], [address], 06/04/2024 11:11:37 06/01/19 25 06/02/2024 URINA LYSIS , COMPL ETE ketones NEGATI VE negati ve Not Available [facility] [address] [facility], [place], [address], 06/04/2024 11:11:37 06/01/19 25 06/02/2024 URINA LYSIS , COMPL ETE occult blood NEGATI VE negati ve Not Available [facility] [address] [facility], [place], [address], 06/04/2024 11:11:37 06/01/19 25 06/02/2024 URINA LYSIS , COMPL ETE bilirubin NEGATI VE negati ve Not Available [facility] [address] [place], [address], 06/04/2024 11:11:37 06/01/19 25 06/02/2024 URINA LYSIS , COMPL ETE urobilinogen ,semi-qn 0.2 mg/dL 0.2-1. 0 Not Available [facility] [address] [place], [address], 06/04/2024 11:11:37 06/01/19 25 06/02/2024 URINA LYSIS , COMPL ETE nitrite, urine NEGATI VE negati ve Not Available [facility] [address] [facility], [place], [address], 06/04/2024 11:11:37 06/01/19 25 06/02/2024 URINA LYSIS , COMPL ETE microscopic examination SEE BELOW: Micro scopi c was indic ated and was perfo rmed. Not Available [facility] [address] [facility], [place], [address], 06/04/2024 11:11:37 06/01/19 25 06/01/2024 urina lysis , dipst ick Protein Negati ve Not Available In-Office Order Internal Use Only DO Not Attach Compendium DO Not Attach Compendium, Do Not Delete/merge, [id number] 05/28/2024 15:21:14 06/01/19 25 06/01/2024 urina lysis , dipst ick Glucose Negati ve Not Available In-Office Order Internal Use Only DO Not Attach Compendium DO Not Attach Compendium, Do Not Delete/merge, [id number] 05/28/2024 15:21:14 06/29/19 25 06/29/2024 urina lysis , dipst ick Protein Negati ve Not Available In-Office Order Internal Use Only DO Not Attach Compendium DO Not Attach Compendium, Do Not Delete/merge, [id number] 06/23/2024 12:58:31 06/29/19 25 06/29/2024 urina lysis , dipst ick Glucose Negati ve Not Available In-Office Order Internal Use Only DO Not Attach Compendium DO Not Attach Compendium, Do Not Delete/merge, [id number] 06/23/2024 12:58:31 05/10/20 24 04/30/2024 US, obste tric, 1st trime ster No observ ation record ed. [facility] ([facility]) [address], [place], [address], 05/10/2024 16:21:01 Result Notes None recorded. Problems Name Problem SNOMED Code Status Onset Date Resolution Date Notes Provider Name and Address Organization Details Recorded Time 58860282 Completed 202201/20/2023 LAURENT Madden [place], [place] - [facility] 4 11:31:50 97528813 Completed 202301/13/2024 LAUR[place] [facility] 4 11:31:50 81065366 Active 2023 LAURENT Madd[place] [facility] 4 11:31:50 Amenorrhea 11574670 Active Annemariekenyon Haines [place], [place] [facility] 6 16:15:50 Vaginal discharge 052257969 Active Annemariekenyon Haines [place] [facility] 6 16:15:50 Irregular periods 32953508 Active Annemariekenyon Haines [place] [facility] 6 16:15:50 Gestation period, 24 weeks 249083757 Active Laurita Isringhaus en [place] [facility] 6 17:49:24 Gestation period, 24 weeks 570021788 Completed Laurita Isringhaus en [place] [facility] 6 17:49:24 Blood group A Rh(D) negative 328667830 Active Laurita Isringhaus en [place] [facility] 6 17:49:24 Blood group A Rh(D) negative 864753129 Completed Laurita Isringhaus en [place] [facility] 6 17:49:24 Problem Notes None recorded. Procedures Surgical History Date Name Laterality Status Provider Name and Address Organization Details Recorded Time 11/05/19 24 Date of Last Pap Smear completed LAURENT Madden [place] - [facility] 04/15/2024 11:26:45 01/21/20 23 Suture/Staple removal completed Jack Gordillo MD Attn: Accounting,[address] [place], [address], [place] [facility] 01/20/2023 12:30:05 04/27/20 16 Caesarean Section completed Armida Umana [place] - [facility] 11/26/2016 14:14:33 05/12/19 09 Other completed Armida Layne [place] - [facility] 08/30/2015 09:46:55 arthroscopy completed Katlyn Dan [place] - [facility] 06/18/2018 15:13:31 Imaging Results Imaging Date Name Status LastModified by Organiz ation Details LastModified Time 04/30/2024 US, obstetric, 1st trimester completed [facility] ([facility]) [address] [facility], [place], [address], 05/10/2024 16:21:01 Procedure Notes None recorded. Medical Equipment None Reported. Allergies Allergen ID Allergen Name Allergen Category Reaction Reaction Severity Criticality Documentation Date Start Date Code Code System Note Provider Name and Address Organization Details Recorded Time 5525 Bactrim medicatio n Not available Not available Not available 04/14/2014 47803 9 RxNorm Not Available Not Available Not Available 5526 Keflex medicatio n Not available Not available Not available 04/14/2014 99274 7 RxNorm Not Available Not Available Not Available 5527 latex environme nt,medica tion Not available Not available Not available 04/14/2014 93014 91 RxNorm Not Available Not Available Not Available Medications Name Sig Start Date Stop Date Status Note LastModified by Organization Details LastModified Time clindamycin HCl 300 mg capsule 07/03 completed Not Available Not Available Not Available hydrocodone 5 mg-acetamin ophen 325 mg tablet TAKE 1 TO 2 TABLETS BY MOUTH EVERY 4 HOURS NEEDED FOR PAIN 07/03 completed Not Available Not Available Not Available meloxicam 15 mg tablet 09/11 completed Not Available Not Available Not Available ondansetron HCl 4 mg tablet TAKE 1 TABLET BY MOUTH EVERY 8 HOURS NEEDED FOR NAUSEA AND VOMITING 07/03 completed Not Available Not Available Not Available rizatriptan 10 mg tablet 09/11 completed Not Available Not Available Not Available Wellbutrin SR 150 mg tablet, 12 hr sustained-r elease Take 1 tablet twice a day by oral route as directed. 11/26 completed Not Available Not Available Not Available metronidazo le 500 mg tablet Take 1 tablet twice a day by oral route for 7 days. 07/03 completed Not Available Not Available Not Available ciprofloxac in 500 mg tablet Take 1 tablet twice a day by oral route for 5 days. 07/03 completed Not Available Not Available Not Available tramadol 50 mg tablet 06/10 completed Not Available Not Available Not Available Vitamin tablet Take 1 tablet every day by oral route as directed. 11/26 completed Not Available Not Available Not Available meloxicam 7.5 mg tablet TAKE 1 TABLET BY MOUTH EVERY DAY 07/17 completed Not Available Not Available Not Available amoxicillin 875 mg tablet TAKE 1 TABLET BY MOUTH EVERY 12 HOURS FOR 7 DAYS 09/11 completed Not Available Not Available Not Available metformin 1,000 mg tablet Take 1 tablet twice a day by oral route. active Not Available Not Available No t Available triamcinolo ne acetonide 0.1 % topical ointment active Not Available Not Available Not Available ranitidine 150 mg tablet 09/11 completed Not Available Not Available Not Available docusate sodium 100 mg capsule TAKE 1 CAPSULE BY MOUTH TWICE A DAY NEEDED FOR CONSTIPAT ION 11/04 completed Not Available Not Available Not Available Provera 10 mg tablet Take 1 tablet every day by oral route for 10 days. 2015 active Not Available Not Available Not Avai lable ibuprofen 600 mg tablet TAKE 1 TABLET BY MOUTH EVERY 6 HOURS NEEDED FOR PAIN active Not Available Not Available No t Available scopolamine 1 mg over 3 days transdermal patch YARI ONE PATCH BEHIND THE EAR ONE DAY PRIOR TO SURGERY DATE 09/11 completed Not Available Not Available Not Available methylpredn isolone 4 mg tablets in a dose pack TAKE 6 TABLETS ON DAY 1 DIRECTED ON PACKAGE AND DECREASE BY 1 TAB EACH DAY FOR A TOTAL OF 6 DAYS 04/16 completed Not Available Not Available Not Available ondansetron 4 mg disintegrat ing tablet Place 1 tablet every 8 hours by transling ual route as needed. active Not Available Not Available No t Available Clomid 50 mg tablet Take 1 tablet every day by oral route for 6 days. 01/20 completed Not Available Not Available Not Available amoxicillin 875 mg-potassiu m clavulanate 125 mg tablet 06/10 completed Not Available Not Available Not Available clindamycin 1 % lotion APPLY TO RASH TWICE DAILY UNTIL RESOLVED active Not Available Not Available No t Available Sprintec (28) 0.25 mg-35 mcg tablet TAKE 1 TABLET BY MOUTH ONCE DAILY 07/03 completed Not Available Not Available Not Available Garytte 0.35 mg tablet 12/09 completed Not Available Not Available Not Available RhoGAM Ultra-Filte red PLUS 1,500 unit (300 mcg) intramuscul ar syringe Inject 1 syringe every day by intramusc ular route as directed for 1 day. 01/20 completed Not Available Not Available Not Available Senexon-S 8.6 mg-50 mg tablet TAKE 1 TABLET BY MOUTH EVERY DAY 07/03 completed Not Available Not Available Not Available Nexplanon 68 mg subdermal implant 07/03 completed Not Available Not Available Not Available Ngoc 24 Fe 1 mg-20 mcg (24)/75 mg (4) tablet TAKE 1 TABLET BY MOUTH ONCE DAILY FOR 28 DAYS 03/19 completed Not Available Not Available Not Available Afluria Qd 2019- (36 mos up)(PF)60 mcg (15 mcg x4)/0.5 mL IM syringe ADM 0.5ML IM UTD 09/11 completed Not Available Not Available Not Available Vitals Date Recorded Body height Body mass index (BMI) Body weight Systolic blood pressure Diastolic blood pressure Provider Name and Address Organization Details Last Updated DateTime 04/15/2024 175.26 cm 23.8 kg/m2 87880.8 g 116 mm[Hg] 67 mm[Hg] LAURENT Madden [place] - [facility] 4 11:36:06 Date Recorded Body height Body mass index (BMI) Body weight Systolic blood pressure Diastolic blood pressure Provider Name and Address Organization Details Last Updated DateTime 04/28/2024 175.26 cm 23.6 kg/m2 96031.21 g 126 mm[Hg] 65 mm[Hg] LAURENT Madden [place] - [facility] 4 11:42:53 Date Recorded Body height Body mass index (BMI) Body weight Systolic blood pressure Diastolic blood pressure Provider Name and Address Organization Details Last Updated DateTime 05/20/2024 175.26 cm 23.5 kg/m2 13307.61 7914 g 122 mm[Hg] 76 mm[Hg] Raven Mann Eddie [facility] 5 10:59:07 Date Recorded Body height Body mass index (BMI) Body weight Systolic blood pressure Diastolic blood pressure Provider Name and Address Organization Details Last Updated DateTime 06/01/2024 175.26 cm 23.9 kg/m2 41001.39 5024 g 124 mm[Hg] 71 mm[Hg] Raven Mann [facility] 5 10:11:30 Date Recorded Body height Body weight Systolic blood pressure Diastolic blood pressure Provider Name and Address Organization Details Last Updated DateTime 06/29/2024 175.26 cm 95171.556 31 g 121 mm[Hg] 75 mm[Hg] Raven Mann [facility] 06/29/2024 10:24:39 Social History Question Answer Notes LastModified by Organizat ion Details LastModified Time Tobacco Smoking Status Former Smoker GARY Ly, [facility] 06/18/2018 15:12:47 In The 14 Days Before Symptom Onset, Have You Had Close Contact With A Laboratory-confirm ed COVID-19 While That Case Was Ill? No Information n ot available 09/11/2021 In The 14 Days Before Symptom Onset, Have You Had Close Contact With A Person Who Is Under Investigation For COVID-19 While That Person Was Ill? No Information not available 09/11/2021 Have You Been To An Area Known To Be High Risk For COVID-19? No Information not available 09/11/2021 What Was The Date Of Your Most Recent Tobacco Screening? 11/05/2023 Information not available 11/05/2023 How Many Children Do You Have? 1 Information not available 07/17/2022 What Is Your Relationship Status? [email or web address] Information not available 06/18/2018 Are You Sexually Active? Yes [email or web address] Information not available 04/14/2014 Has Tobacco Cessation Counseling Been Provided? No Information not available 07/03/2020 How Many Years Have You Smoked Tobacco? 4 [email or web address] Information not available 11/26/2016 Do You Or Have You Ever Used Any Other Forms Of Tobacco Or Nicotine? No Information not available 07/03/2020 Sex: Female Functional Status None recorded. Mental Status None recorded. Family History Relationship Description Onset Age of this Age Resolved Age Notes LastModified by Organization Details LastModified Time Mother History of hypertension Not available 02/15/2016 16:15:51 Mother Malignant tumor of breast Not available 10/2015 16:15:51 Mother Diabetes mellitus Not available 10/2015 16:15:51 Unspecified Relation Heart disease patern al grandf ather Not available 02/15/2016 16:15:51 Unspecified Relation Cerebrovascu lar accident Not available 02/15/2016 16:15:51 Unspecified Relation Osteoporosis matern al grandm other Not available 02/15/2016 16:15:51 Medical History Condition Response Other Y High Blood Pressure N Breast Cancer N Kidney or Bladder Problems N Thyroid Problems N GI Problems N Lung Disease N Depression N Blood Clots N Acne N Eating Disorder N Breast Problem N Anemia N Anesthesia Complications N Headaches/Migraines N Anxiety Disorder N Ovarian Cancer N Diabetes N Muscle, Joint, or Bone Problems N Blood Transfusions N Seizures/Epilepsy N Polyps N Infertility N Acid Reflux (GERD) N Cancer N Urinary Tract Infection Y Abuse/Domestic Violence N Asthma N Endometriosis N High Cholesterol N Hepatitis N Liver Disease N Heart Disease N Headaches Y Pre-Eclampsia N Osteoporosis N Gynecological History Statement/Question Response Flow Moderate STIs/STDs N Duration of Flow (days) 5 Age at Menarche 12 Current Control Method Age at First Child 25 Sexually Active? N Menses Monthly Yes Date of Last Pap Smear 11/05/2023 Sexual Problems? Y LMP Definite Obstetrics History GPAL:G 6 P 2 0 3 2 Type Value Full Term 2 Induced 1 Spontaneous 2 Living 2 Total 6 Immunizations Vaccine Type Date Status Note Provider Nam e and Address Organization Details Recorded Time Tdap 6 completed Not Available [facility] 05/29/2019 02:32:37 Hib, unspecified formulation 1 completed LAUR[place] [facility] 01/20/2023 12:08:31 DTP 1 [place] [facility] 01/20/2023 12:08:31 OPV 1 completed Raven Westce, [place] [facility] 01/20/2023 12:08:31 Influenza, split virus, quadrivalent, PF 1 completed Raven Mackenzie, [place] [facility] 01/20/2023 12:08:31 Influenza, split virus, quadrivalent, PF 0 completed Raven Mackenzie, [place] [facility] 01/20/2023 12:08:31 Influenza, split virus, quadrivalent, PF 2 completed Raven Mackenzie, [place] [facility] 01/20/2023 12:08:31 Tdap 3 completed Jack Gordillo MD Attn: Accounting[address] [place], [address], [facility] - [facility] 12/19/2022 16:50:22 Past Encounters Encounter ID Performer Location Encounter Start Date Encounter Closed Date Diagnosis/Indication Diagnosis SNOMED-CT Code Diagnosis ICD10 Code Diagnosis Note [id number] Kathy Hannah ([facility] 122) [place] [address] 04/18/2014 16:07:50 04/18/2014 16:54:52 Amenorrhea [id number] [id number] Iveth Blanco [facility] Kathy Hannah ([facility] [address]) [address] [place] [address] 06/05/2015 12:25:51 06/06/2015 12:11:32 detection examination 34440750 Z32.00 Vaginal discharge 665740 006 N89.8 [id number] SAILAJA Forbes ([facility] 122) [address] [place] [address] 08/30/2015 09:28:40 08/30/2015 11:51:12 06290200 Z33.1 Gynecologi c examination 80570922 Z01.419 [id number] SAILAJA Forbes ([facility] 122) [address] [place] [address] 09/27/2015 14:30:19 09/27/2015 19:04:45 Normal 96200589 Z34.90 [id number] SAILAJA Forbes ([facility] 122) 2 [facility] [place] [address] 10/25/2015 14:47:46 10/25/2015 17:33:00 Normal 56688589 Z34.90 Failed att empt to stop smoking 026284830 Z72.0 [id number] SAILAJA Forbes ([facility] 122) 2 [facility] [place] [address] 11/22/2015 14:44:11 11/23/2015 08:25:29 Normal 05450748 Z34.82 [id number] SAILAJA Forbes ([place] [address]) 2 [facility] [place] [address] 12/13/2015 14:42:56 12/13/2015 15:42:49 Normal [id number] Z34.82 [id number] Blanca Kinney Kathy Hannah ([facility] 122) 2 [facility] [place] [address] 01/09/2016 14:57:32 01/10/2016 08:35:39 Normal 30068355 Z34.82 Gestation period, 24 weeks 947388204 Z3A.24 [id number] SAILAJA Forbes ([place] [address]) 2 [facility] [place] [address] 01/30/2016 14:56:51 01/30/2016 16:09:54 Normal 46004908 Z34.82 Blood grou p A Rh(D) negative 275966844 Z67.11 [id number] MD Kathy Henry ([place] [address]) 2 [facility] [address] 02/15/2016 15:55:07 02/15/2016 16:52:30 Normal 59637900 Z34.03 [id number] MD Kathy Henry ([facility] 205) 2 [facility] [place] [address] 02/29/2016 11:36:11 02/29/2016 13:39:55 Normal 67380597 Z34.03 [id number] MD Kathy Henry ([place] [address]) 2 [facility] [place] [address] 03/22/2016 15:30:14 03/25/2016 09:57:34 Administration of diphtheria, pertussis, and tetanus vaccine 884542177 Z23 Normal 9986889 2 Z34.03 [id number] MD Kathy Henry ([place] [address]) 2 [facility] [place] [address] 04/09/2016 15:36:39 04/09/2016 16:39:56 Normal 48815189 Z34.03 [id number] MD Kathy Henry ([place] [address]) 2 [facility] [place] [address] 04/16/2016 15:34:24 04/16/2016 16:43:13 Normal 23329545 Z34.03 [id number] MD Kathy Henry ([place] [address]) 2 [facility] [place] [address] 04/23/2016 15:42:56 04/24/2016 12:48:05 Normal [id number] Z34.03 [id number] SAILAJA Forbes ([facility] 205) 2 [facility] [place] [address] 05/02/2016 12:14:52 05/02/2016 16:09:02 [id number] MD Kathy Henry ([place] [address]) 2 [facility] [place] [address] 05/15/2016 10:00:41 05/15/2016 10:29:56 Postoperative pain 051483130 G89.18 [id number] MD Kathy Henry ([facility] 205) 2 [facility] [place] [address] 06/03/2016 10:56:02 06/03/2016 12:39:44 care 977708192 Z39.2 [id number] Iveth Blanco [facility] Kathy Hannah ([facility] 122) 2 [facility] [place] [address] 11/26/2016 13:58:20 11/26/2016 15:04:31 Surveillance of oral contraception 546710298 Z30.41 [id number] Iveth Blanco [facility] Kathy Hannah ([facility] 122) 2 [facility] [place] [address] 12/09/2016 14:01:38 12/10/2016 08:52:07 Uterine prolapse 89070399 N81.4 [id number] MD Kathy Henry Womendamien ([facility] [address]) 2 [facility] [place] [address] 12/26/2016 15:45:01 12/26/2016 16:46:58 Prolapse of female genital organs 50915295 N81.9 Irregular periods 755006 07 N92.6 [id number] MD Kathy Giang ([facility] 122) 2 [facility] [place] [address] 06/10/2017 14:42:04 06/11/2017 16:32:15 Gynecologic examination 97450113 Z01.419 Vaginal discharge 002269 006 N89.8 Uses oral contraception 5620871 Z79.3 Pain in pelvis 29400916 R10.2 Cystocele 321216716 N81. 10 [id number] MD Kathy Giang 14 OB 4 [facility] [address] [address] [facility] [facility] [place] [address] 06/18/2018 14:58:31 06/19/2018 09:33:42 Vaginal discharge 623897783 N89.8 Venereal d isease screening 453552279 Z11.3 - STD testing was sent as patient request. Family his tory of malignant neoplasm of breast in first degree relative 208557195 Z80.3 - Mother has history of breast CA. Will refer for genetic counseling . Gynecologi c examination 89331402 Z01.419 - Pap smear was normal in 06/2016. [id number] MD Kathy Henry 14 OB 4 [facility] [address] [place] [address] 05/13/2019 15:49:14 05/14/2019 16:18:06 Gynecologic examination 62364989 Z01.419 Contracept ion care management 963577706 Z30.9 [id number] MD aKthy Henry 14 OB 4 [facility] [place] [address] 11/02/2019 09:26:42 11/03/2019 14:02:13 Premenstrual tension syndrome 75528010 N94.3 Contracept ion care management 409700768 Z30.9 [id number] MD Kathy Henry 14 OB 4 [facility] [place] [address] 07/03/2020 14:54:12 07/04/2020 12:35:35 Gynecologic examination 75447731 Z01.419 Contracept ion care management 385002639 Z30.9 [id number] MD Kathy Henry 14 OB 4 [facility] [place] [address] 09/11/2021 13:54:08 09/12/2021 06:36:11 Gynecologic examination 13641095 Z01.963 [id number] MD Kathy Henry 14 OB 4 [facility] [place] [address] 12/18/2021 14:52:34 12/19/2021 09:14:45 Missed period 26624194 N92.5 Irregular periods 863625 07 N92.6 [id number] MD Kathy Henry 14 OB 4 [facility] [place] [address] 04/16/2022 15:25:53 04/17/2022 08:32:41 Irregular periods 19423477 N92.6 Pain in pelvis 45790709 R10.2 [id number] MD Kathy Henry 14 OB 4 [facility] [place] [address] 07/17/2022 11:38:05 07/18/2022 11:16:03 Normal 19926686 Z34.90 Past pregn miki history of section 986529652 Z98.890 Routine an tenatal care 691486210 Z34.91 [id number] MD Kathy Henry 14 OB 4 [facility] [place] [address] 08/06/2022 16:28:26 08/07/2022 11:13:17 Normal 02824976 Z34.90 Past pregn miki history of section 241169823 Z98.977 [id number] MD Kathy Henry 14 OB 4 [facility] [place] [address] 09/09/2022 16:35:27 09/12/2022 14:18:51 Normal 55850801 Z34.90 Past pregn miki history of section 215464748 Z98.786 [id number] MD Kathy Henry 14 OB 4 [facility] [place] [address] 10/01/2022 16:27:16 10/03/2022 10:35:02 Normal 78624492 Z34.90 [id number] MD Kathy Henry 14 OB 4 [facility] [place] [address] 10/31/2022 09:56:27 10/31/2022 11:03:46 Normal 08280253 Z34.90 RhD negative 623538337 Z 01.83 Past pregn miki history of section 045313589 Z98.561 [id number] MD Kathy Henry 14 OB 4 [facility] [place] [address] 11/14/2022 16:00:26 11/19/2022 16:12:26 Normal 71744777 Z34.90 Uterine si ze for dates discrepancy 180705520 O26.849 Past pregn miki history of section 416874958 Z98.979 [id number] MD Kathy Henry 14 OB 4 [facility] [place] [address] 12/05/2022 16:01:08 12/09/2022 08:41:24 Normal 87690810 Z34.90 [id number] MD Kathy Henry 14 OB 4 [facility] [place] [address] 12/19/2022 16:34:11 12/20/2022 09:39:04 Normal 98756030 Z34.90 Administra tion of diphtheria, pertussis, and tetanus vaccine 576266850 Z23 Past pregn miki history of section 966643071 Z98.185 [id number] MD Kathy Henry 14 OB 4 [facility] [place] [address] 01/03/2023 10:10:27 01/06/2023 08:45:31 Normal 60300243 Z34.90 Past pregn miki history of section 910082052 Z98.657 [id number] MD Kathy Henry 14 OB 4 [facility] [place] [address] 01/10/2023 11:31:17 01/15/2023 11:02:18 Normal 35448845 Z34.90 Past pregn miki history of section 885641322 Z98.583 [id number] MD Kathy Henry 14 OB 4 [facility] [place] [address] 01/20/2023 12:00:59 01/22/2023 11:38:38 Removal of tal 56649321 Z48.02 [id number] MD Kathy Henry 14 OB 4 [facility] [place] [address] 02/24/2023 11:08:03 02/26/2023 11:22:49 care 426272249 Z39.2 [id number] MD Kathy Henry 14 OB 4 [facility] [place] [address] 11/05/2023 11:06:32 11/06/2023 09:27:42 Normal 40141689 Z34.90 Past pregn miki history of section 477251931 Z98.890 Early stag e of 453576993 Z34.91 [id number] MD Kathy Henry 14 OB 4 [facility] [place] [address] 12/11/2023 09:43:13 01/01/2024 08:34:31 Normal 24564987 Z34.90 Past pregn miki history of section 544480315 Z98.459 [id number] MD Kathy Henry 14 OB 4 [facility] [place] [address] 12/25/2023 10:08:10 01/05/2024 11:51:49 Normal 53217299 Z34.90 [id number] MD Kathy Henry 14 OB 4 [facility] [place] [address] 01/13/2024 11:24:29 01/30/2024 10:36:59 Miscarriage without complication 07630075 O03.9 [id number] MD Kathy Henry 14 OB 4 [facility] [place] [address] 04/15/2024 11:19:14 04/26/2024 11:18:11 Early stage of 349505994 Z34.91 [id number] MD Kathy Henry 14 OB 4 [facility] [place] [address] 04/28/2024 11:22:23 04/29/2024 12:36:52 Normal 52594453 Z34.90 Early stag e of 736861592 Z34.91 [id number] MD Kathy Henry 14 OB 4 [facility] [place] [address] 05/20/2024 10:39:50 05/21/2024 07:51:14 Normal 93130525 Z34.90 [id number] MD Kathy Henry 14 OB 4 [facility] [place] [address] 06/01/2024 09:42:15 06/07/2024 13:11:07 Normal 70119149 Z34.90 [id number] MD Kathy Henry 14 OB 4 [facility] [place] [address] 06/29/2024 10:14:17 06/30/2024 12:55:59 Normal 84993417 Z34.90 Z34.82 Health Concerns Section Related Observation LastModified by Organization Detai ls LastModified Time None Recorded Concern Status LastModified by Organization Details LastModified Time None Recorded Advance Directives Directive None Recorded Payers Encounter Date Sequence Insurance Name Policy Number Policy Godfrey Covered Member ID Godfrey Member ID Guarantor Name 04/15/2024 1 [facility] [id number] Ramón Field [id number] Gris Field 04/15/2024 2 () Gris [employer] [id number] Gris Field 04/28/2024 1 [facility] [id number] Ramón Field [id number] Gris Field 04/28/2024 2 () Gris [employer] [id number] Gris [employer] 05/20/2024 1 [facility] [id number] Ramón Field [id number] Gris Field 05/20/2024 2 () Gris Field [id number] Gris Field 06/01/2024 1 [facility] [id number] Ramón Field [id number] Gris Field 06/01/2024 2 () Gris Field [id number] Gris Field 06/29/2024 1 [facility] [id number] Ramón Field [id number] Gris Field 06/29/2024 2 () Gris Field [id number] Gris [employer] Notes Date Note Type Note Provider Name and Address Organization Details Recorded Time 04/15/2024 text/html here at 8 weeks last baby was a termination due to Downs syndrome and severe anomalies discussed doing her genetic testing in 2 weeks at NO apt. Jack Gordillo MD Attn: Accounting[address] [place], [address], [facility] - [facility] 04/15/2024 11:55:54 OBGyn Episode Ob Episode Information Episode Created Date Number of Fetuses Patient Bloodtype Patient rh Status Prepregnancy Weight lbs Domestic Partner Domestic Partner Phone Father Name [employer] Status 11/05/19 24 1 A Negative CLOSED Fetus Data First Name Last Name Admitted to NICU Weight (g) Sex Living Outcome Pediatric Complications Fetus ID Race Codes Race Delivery Type [id number] Walker Calculation Initial Walker Date Initial Exam Date Initial Exam Provider Initial Ultrasound Date Last Menstrual Period Date Ultra Sound Weeks Gestation 05/10/2024 11/05/2023 11/12/2023 08/04/2023 6 Eighteen To Twenty Week Walker Update Ultra Sound Date Fundal Height At Umbil Quickening Date Ultra Sound Latest Weeks Gestation Final Walker Confirmed By Final Walker Confirmed Date Final Walker Date Ultra Sound Latest Days Gestation 0 07/06/19 25 0 Pre-marlin Flowsheet Flowsheet Date 11/05/2023 Villar Score Blood Edema Fundus Height Fundus Units Glucose Ketones Leukocytes Nitrite Labor Signs Protein Cervic Dilation Cervic Effacement Cervic Station 8 wks 0cm 0% -4 Type Weight in lbs Pre/Post Dialysis Refused With clothes 162.178557202693 BP Diastolic BP Location Tested BP Systolic BP Type 76 119 sitting Fetus Heart Rate Present A Absent Fetus Movement Comments Will be third baby, 2 previo us c/snausea made her check a home testno FHTs heard today, but uterus really only 8 week size; will get early US Flowsheet Date 12/11/2023 Villar Score Blood Edema Fundus Height Fundus Units Glucose Ketones Leukocytes Nitrite Labor Signs Protein Cervic Dilation Cervic Effacement Cervic Station none neg Type Weight in lbs Pre/Post Dialysis Refused With clothes 158.203875649661 BP Diastolic BP Location Tested BP Systolic BP Type 78 L arm 128 sitting Fetus Heart Rate Present Fetus Movement Comments New EDC by early US shows he r to be only 10 weeks no FHTs heard as of yet, will come backin 2 weeks Flowsheet Date 12/25/2023 Villar Score Blood Edema Fundus Height Fundus Units Glucose Ketones Leukocytes Nitrite Labor Signs Protein Cervic Dilation Cervic Effacement Cervic Station none trace Type Weight in lbs Pre/Post Dialysis Refused With clothes 161.916513898364 BP Diastolic BP Location Tested BP Systolic BP Type 75 L arm 119 sitting Fetus Heart Rate Present A Absent Fetus Movement Comments 12 weeks, unable to hear FHT s todayhas a HROB apt 12/29 to discuss trisomy finding and get an US.May terminate if found to be true +discussed post TAB counseling/care Flowsheet Date 01/13/2024 Villar Score Blood Edema Fundus Height Fundus Units Glucose Ketones Leukocytes Nitrite Labor Signs Protein Cervic Dilation Cervic Effacement Cervic Station Type Weight in lbs Pre/Post Dialysis Refused With clothes 159.650735755222 BP Diastolic BP Location Tested BP Systolic BP Type 67 L arm 122 sitting Fetus Heart Rate Present Fetus Movement Comments [place] [facility] for[place]is[place] [facility], as well serious cystic hygroma tumor.No desire for contraception at this pointno PPD issues, appropriate grief Menstrual History Last Menstrual Date Menses Monthly On Bcp Conception Prior Menses Frequency Hcg Plus Date Menarche Onset Age 0308/04/2023 false Genetic Screening And Infection History Question Response Note Patient's Age Will Be 35 Years Or Older At Estim ated Date of Delivery false Thalassemia (Swazi, Ghanaian, Mediterranean, Or Background): MCV < 80 false Neural Tube Defect (Meningomyelocele, Spina Bifi da, Or Anencephaly) false Congenital Heart Defect false Down Syndrome false Haider-Sachs (eg, Jehovah'S Witness, Cajun, Estonian-Maltese) f alse Jair Disease false Sickle Cell Disease Or Trait () false Hemophilia Or Other Blood Disorders false Muscular Dystrophy false Cystic Fibrosis false Meyers Chuck's Chorea false Mental Retardation/Autism false If Yes, Was Person Tested For Fragile X? false Other Inherited Genetic Or Chromosomal Disorder false Maternal Metabolic Disorder (eg, Type 1 Diabetes , PKU) false Patient Or Baby's Father Had A Child With Defects Not Listed Above false Recurrent Loss, Or A Stillbirth false Medications (including Suppl ements, Vitamins, Herbs, OTC Drugs), Illicit/Recreational Drugs, Alcohol false If Yes, Agent(s) And Strength/Dosage false Any Other Genetic History false Live With Someone With TB Or Exposed To TB false Patient Or Partner Has History Of Genital Herpes false Rash Or Viral Illness Since Last Menstrual Perio d false History Of STD, Gonorrhea, Chlamydia, HPV, Syphi lis false Other Infection History false History of HIV false History of Hepatitis false Prior GBS-infected child false Delivery Information Delivery Date Delivery Type Labor Anesthesia Weeks Gestation Incision Type Labor Labor Length Hrs Delivered By Post Complications Tubal Sterilization Discharge Date Comments Discharge Information Feeding Method Contraceptive Method Maternal HG B and HCT Levels Ob Episode Information Episode Created Date Number of Fetuses Patient Bloodtype Patient rh Status Prepregnancy Weight lbs Domestic Partner Domestic Partner Phone Father Name [employer] Status 04/28/20 24 1 OPEN Fetus Data First Name Last Name Admitted to NICU Weight (g) Sex Living Outcome Pediatric Complications Fetus ID Race Codes Race Delivery Type [id number] Walker Calculation Initial Walker Date Initial Exam Date Initial Exam Provider Initial Ultrasound Date Last Menstrual Period Date Ultra Sound Weeks Gestation 12/19/2024 04/28/2024 04/30/2024 02/19/2024 6 Eighteen To Twenty Week Walker Update Ultra Sound Date Fundal Height At Umbil Quickening Date Ultra Sound Latest Weeks Gestation Final Walker Confirmed By Final Walker Confirmed Date Final Walker Date Ultra Sound Latest Days Gestation 0 05/20/2024 12/20/19 25 0 Pre- Flowsheet Flowsheet Date 04/28/2024 Villar Score Blood Edema Fundus Height Fundus Units Glucose Ketones Leukocytes Nitrite Labor Signs Protein Cervic Dilation Cervic Effacement Cervic Station Type Weight in lbs Pre/Post Dialysis Refused With clothes 160.656952282192 BP Diastolic BP Location Tested BP Systolic BP Type 65 R arm 126 sitting Fetus Heart Rate Present Fetus Movement Comments 9 weeks . Still too early for FHTslast had a TAB for Down's baby with severe anomalies not compatible with life ( cystic hygroma)Two previous c/s in 2015 ( still last one)Materniti 21 not approved by her primary insurance despite last outcome.Will get early US and attempt to get secondary to cover itf/u 2 weeks Flowsheet Date 05/20/2024 Villar Score Blood Edema Fundus Height Fundus Units Glucose Ketones Leukocytes Nitrite Labor Signs Protein Cervic Dilation Cervic Effacement Cervic Station none trace Type Weight in lbs Pre/Post Dialysis Refused With clothes 159.596969823459 BP Diastolic BP Location Tested BP Systolic BP Type 76 R arm 122 sitting Fetus Heart Rate Present Fetus Movement Comments Early US gave new EDC of 8 0, so 9 4/7 weeks todayno attempt at FHTs in office as is still less than 10 weekslabs todaymaterniti test was approved Flowsheet Date 06/01/2024 Villar Score Blood Edema Fundus Height Fundus Units Glucose Ketones Leukocytes Nitrite Labor Signs Protein Cervic Dilation Cervic Effacement Cervic Station none neg Type Weight in lbs Pre/Post Dialysis Refused With clothes 162.758101939793 BP Diastolic BP Location Tested BP Systolic BP Type 71 R arm 124 sitting Fetus Heart Rate Present A 156 Fetus Movement Comments Good FHTs todaymaterniti 21 was normal - girl!Nausea still ongoing, but good spirits Flowsheet Date 06/29/2024 Villar Score Blood Edema Fundus Height Fundus Units Glucose Ketones Leukocytes Nitrite Labor Signs Protein Cervic Dilation Cervic Effacement Cervic Station 15 wks none none neg Type Weight in lbs Pre/Post Dialysis Refused With clothes 163.537088753895 BP Diastolic BP Location Tested BP Systolic BP Type 75 L arm 121 sitting Fetus Heart Rate Present A 146 Fetus Movement Comments 15 weeks doing wellnausea mo stlu resolved at this pointPOlan anatomy US at 18 weeks, f/u here after that Menstrual History Last Menstrual Date Menses Monthly On Bcp Conception Prior Menses Frequency Hcg Plus Date Menarche Onset Age 1002/19/2024 false Delivery Information Delivery Date Delivery Type Labor Anesthesia Weeks Gestation Incision Type Labor Labor Length Hrs Delivered By Post Complications Tubal Sterilization Discharge Date Comments Discharge Information Feeding Method Contraceptive Method Maternal HG B and HCT Levels Ob Episode Information Episode Created Date Number of Fetuses Patient Bloodtype Patient rh Status Prepregnancy Weight lbs Domestic Partner Domestic Partner Phone Father Name [employer] Technician Status 07/18/19 23 1 A Negative CLOSED Fetus Data First Name Last Name Admitted to NICU Weight (g) Sex Living Outcome Pediatric Complications Fetus ID Race Codes Race Delivery Type Erin alexander false 2551.45 5 F true Full Term [id number] White Walker Calculation Initial Walker Date Initial Exam Date Initial Exam Provider Initial Ultrasound Date Last Menstrual Period Date Ultra Sound Weeks Gestation 02/02/2023 07/17/2022 07/18/2022 04/15/2022 11 Eighteen To Twenty Week Walker Update Ultra Sound Date Fundal Height At Umbil Quickening Date Ultra Sound Latest Weeks Gestation Final Walker Confirmed By Final Walker Confirmed Date Final Walker Date Ultra Sound Latest Days Gestation 08/30/19 23 17 08/06/2022 02/03/20 23 0 Pre-marlin Flowsheet Flowsheet Date 07/17/2022 Villar Score Blood Edema Fundus Height Fundus Units Glucose Ketones Leukocytes Nitrite Labor Signs Protein Cervic Dilation Cervic Effacement Cervic Station 12 wks 0cm 0% -4 Type Weight in lbs Pre/Post Dialysis Refused With clothes 154.468786049649 BP Diastolic BP Location Tested BP Systolic BP Type 72 110 sitting Fetus Heart Rate Present A Absent Fetus Movement Comments Retroverted uterus and c/s s car may make FHTs difficult, but will check early US( Had US a few weeks ago that showed normal IUP)Last baby ended up with a post dates induction and eventual c/s for FTP.We discussed risks as well as repeat c/s issues.no bleeding, still nauseated, SAB unlikely but will get f/u early US for peace of mind. Flowsheet Date 08/06/2022 Villar Score Blood Edema Fundus Height Fundus Units Glucose Ketones Leukocytes Nitrite Labor Signs Protein Cervic Dilation Cervic Effacement Cervic Station none 14 wks none neg Type Weight in lbs Pre/Post Dialysis Refused With clothes 157.383941348293 BP Diastolic BP Location Tested BP Systolic BP Type 63 119 sitting Fetus Heart Rate Present A 156 Present Fetus Movement Comments doing well, US shows EDC of 02/02 instead of 01/20divina get anatomy US close to 18 weeks Flowsheet Date 09/09/2022 Villar Score Blood Edema Fundus Height Fundus Units Glucose Ketones Leukocytes Nitrite Labor Signs Protein Cervic Dilation Cervic Effacement Cervic Station 19 wks none neg Type Weight in lbs Pre/Post Dialysis Refused With clothes 164.762157632730 BP Diastolic BP Location Tested BP Systolic BP Type 75 118 sitting Fetus Heart Rate Present A 147 Present Fetus Movement A Yes Comments doing well, gfirl #1 on US. Happy no more fart jokes plan repeat c/s at 39 weeks Flowsheet Date 10/01/2022 Villar Score Blood Edema Fundus Height Fundus Units Glucose Ketones Leukocytes Nitrite Labor Signs Protein Cervic Dilation Cervic Effacement Cervic Station none 22 cm Type Weight in lbs Pre/Post Dialysis Refused With clothes 167.654461118822 BP Diastolic BP Location Tested BP Systolic BP Type 74 112 sitting Fetus Heart Rate Present A 145 Present Fetus Movement A Yes Comments 22 weeks doing well Flowsheet Date 10/31/2022 Villar Score Blood Edema Fundus Height Fundus Units Glucose Ketones Leukocytes Nitrite Labor Signs Protein Cervic Dilation Cervic Effacement Cervic Station none 25 cm none neg Type Weight in lbs Pre/Post Dialysis Refused With clothes 171.273365033157 BP Diastolic BP Location Tested BP Systolic BP Type 73 121 sitting Fetus Heart Rate Present A 152 Present Fetus Movement A Yes Comments 26 weeks doing well, active babyno issuesdoing sugar test and rhogam today Flowsheet Date 11/14/2022 Villar Score Blood Edema Fundus Height Fundus Units Glucose Ketones Leukocytes Nitrite Labor Signs Protein Cervic Dilation Cervic Effacement Cervic Station none 25 cm none neg Type Weight in lbs Pre/Post Dialysis Refused With clothes 175.30143744007 BP Diastolic BP Location Tested BP Systolic BP Type 85 119 sitting Fetus Heart Rate Present A 145 Present Fetus Movement A Yes Comments 28 weeks, size<dates, will g et a f/u USpassed suf=gar test , no new issuesdiscussed c/s timing, likely friday 01/26note for to be primary care-siebel architect Flowsheet Date 12/05/2022 Villar Score Blood Edema Fundus Height Fundus Units Glucose Ketones Leukocytes Nitrite Labor Signs Protein Cervic Dilation Cervic Effacement Cervic Station none 28 cm none trace Type Weight in lbs Pre/Post Dialysis Refused With clothes 179.515344067869 BP Diastolic BP Location Tested BP Systolic BP Type 77 138 sitting Fetus Heart Rate Present A 146 Present Fetus Movement A Yes Comments 31 weeks, her last US was gr eat ( was done for size<dates)Has a bit of a headache today, no visual changes. BP normal but higher than her usual systolicDeclined going to L&D for monitoring, strict precautions discussedf/u 2 weeks Flowsheet Date 12/19/2022 Villar Score Blood Edema Fundus Height Fundus Units Glucose Ketones Leukocytes Nitrite Labor Signs Protein Cervic Dilation Cervic Effacement Cervic Station none 30 cm none neg Type Weight in lbs Pre/Post Dialysis Refused With clothes 182.837926381195 BP Diastolic BP Location Tested BP Systolic BP Type 75 120 sitting Fetus Heart Rate Present A 146 Present Fetus Movement A Yes Comments doing well, a few ctx discus sed todaylabor precautionsplan 39 week repeat c/s ; schedule next visit Flowsheet Date 01/03/2023 Villar Score Blood Edema Fundus Height Fundus Units Glucose Ketones Leukocytes Nitrite Labor Signs Protein Cervic Dilation Cervic Effacement Cervic Station none 32 cm none neg Type Weight in lbs Pre/Post Dialysis Refused With clothes 182.612952200239 BP Diastolic BP Location Tested BP Systolic BP Type 88 138 sitting Fetus Heart Rate Present A 148 Present Fetus Movement A Yes Comments Having a few ctx. active bab ywill set up repeat c/s for saturday 01/27 ( 39 weeks)labor precautions Flowsheet Date 01/10/2023 Villar Score Blood Edema Fundus Height Fundus Units Glucose Ketones Leukocytes Nitrite Labor Signs Protein Cervic Dilation Cervic Effacement Cervic Station none 33 cm none neg Type Weight in lbs Pre/Post Dialysis Refused With clothes 183.457602458231 BP Diastolic BP Location Tested BP Systolic BP Type 70 116 sitting Fetus Heart Rate Present A 143 Present Fetus Movement A Yes Comments 36 5/7 weeks, repeat c/s alexei eduled on 01/27HAving a few ctx, active babyDiscussed importance of going to L&D if ctx become painful and regular. ( not currently)kick counts / labor precautions stressed Flowsheet Date 01/20/2023 Villar Score Blood Edema Fundus Height Fundus Units Glucose Ketones Leukocytes Nitrite Labor Signs Protein Cervic Dilation Cervic Effacement Cervic Station Type Weight in lbs Pre/Post Dialysis Refused With clothes 169.110384111410 BP Diastolic BP Location Tested BP Systolic BP Type 70 R leg 108 sitting Fetus Heart Rate Present Fetus Movement Comments Menstrual History Last Menstrual Date Menses Monthly On Bcp Conception Prior Menses Frequency Hcg Plus Date Menarche Onset Age 1204/15/2022 true Genetic Screening And Infection History Question Response Note Patient's Age Will Be 35 Years Or Older At Estim ated Date of Delivery false Thalassemia (Swazi, Ghanaian, Mediterranean, Or Background): MCV < 80 false Neural Tube Defect (Meningomyelocele, Spina Bifi da, Or Anencephaly) false Congenital Heart Defect false Down Syndrome false Haider-Sachs (eg, Jehovah'S Witness, Cajun, Estonian-Maltese) f alse Jair Disease false Sickle Cell Disease Or Trait () false Hemophilia Or Other Blood Disorders false Muscular Dystrophy false Cystic Fibrosis false Toya's Chorea false Mental Retardation/Autism false If Yes, Was Person Tested For Fragile X? false Other Inherited Genetic Or Chromosomal Disorder false Maternal Metabolic Disorder (eg, Type 1 Diabetes , PKU) false Patient Or Baby's Father Had A Child With Defects Not Listed Above false Recurrent Loss, Or A Stillbirth false Medications (including Suppl ements, Vitamins, Herbs, OTC Drugs), Illicit/Recreational Drugs, Alcohol false If Yes, Agent(s) And Strength/Dosage false Any Other Genetic History false Live With Someone With TB Or Exposed To TB false Patient Or Partner Has History Of Genital Herpes false Rash Or Viral Illness Since Last Menstrual Perio d false History Of STD, Gonorrhea, Chlamydia, HPV, Syphi lis false Other Infection History false History of HIV false History of Hepatitis false Prior GBS-infected child false Delivery Information Delivery Date Delivery Type Labor Anesthesia Weeks Gestation Incision Type Labor Labor Length Hrs Delivered By Post Complications Tubal Sterilization Discharge Date Comments 3 [facility] 37.2 Low Transvers radha Greenwood MD ( o/c) false Discharge Information Feeding Method Contraceptive Method Maternal HG B and HCT Levels Breast Ob Episode Information Episode Created Date Number of Fetuses Patient Bloodtype Patient rh Status Prepregnancy Weight lbs Domestic Partner Domestic Partner Phone Father Name [employer] Technician Status 08/30/19 16 1 A Negative Dorys mauricio Desires [facility] delivery CLOSED Fetus Data First Name Last Name Admitted to NICU Weight (g) Sex Living Outcome Pediatric Complications Fetus ID Race Codes Race Delivery Type Jose J Cosby all false 3486.98 85 M true Full Term [id number] White Problems Problem Notes Problem Name Start Date End Date Resolution Snomed Code Not e Blood group A Rh(D) negative 2 [id number] Gestation period, 24 weeks [id number] Walker Calculation Initial Walker Date Initial Exam Date Initial Exam Provider Initial Ultrasound Date Last Menstrual Period Date Ultra Sound Weeks Gestation 04/18/2016 08/30/2015 mpass 09/27/2015 07/13/2015 0 Eighteen To Twenty Week Walker Update Ultra Sound Date Fundal Height At Umbil Quickening Date Ultra Sound Latest Weeks Gestation Final Walker Confirmed By Final Walker Confirmed Date Final Walker Date Ultra Sound Latest Days Gestation 0 krichert 11/16/2015 04/29/20 16 0 Pre-marlin Flowsheet Flowsheet Date 08/30/2015 Villar Score Blood Edema Fundus Height Fundus Units Glucose Ketones Leukocytes Nitrite Labor Signs Protein Cervic Dilation Cervic Effacement Cervic Station neg none none negative neg Type Weight in lbs Pre/Post Dialysis Refused 161.877506767750 BP Diastolic BP Location Tested BP Systolic BP Type 68 118 sitting Fetus Heart Rate Present Fetus Movement A No Comments Initial labs, US order Flowsheet Date 09/27/2015 Villar Score Blood Edema Fundus Height Fundus Units Glucose Ketones Leukocytes Nitrite Labor Signs Protein Cervic Dilation Cervic Effacement Cervic Station neg none none negative neg Type Weight in lbs Pre/Post Dialysis Refused 165.791289991721 BP Diastolic BP Location Tested BP Systolic BP Type 70 122 sitting Fetus Heart Rate Present A Present Fetus Movement A No Comments Initial OB US today Flowsheet Date 10/25/2015 Villar Score Blood Edema Fundus Height Fundus Units Glucose Ketones Leukocytes Nitrite Labor Signs Protein Cervic Dilation Cervic Effacement Cervic Station trace none none negative trace Type Weight in lbs Pre/Post Dialysis Refused 162.220001160895 BP Diastolic BP Location Tested BP Systolic BP Type 64 112 sitting Fetus Heart Rate Present A 149 Fetus Movement A No Comments Quad screen at front office representative. W ill come in next week for test. Gave Anatomy US order. Flowsheet Date 11/22/2015 Villar Score Blood Edema Fundus Height Fundus Units Glucose Ketones Leukocytes Nitrite Labor Signs Protein Cervic Dilation Cervic Effacement Cervic Station neg none none negative neg Type Weight in lbs Pre/Post Dialysis Refused 165.537897041483 BP Diastolic BP Location Tested BP Systolic BP Type 84 122 sitting Fetus Heart Rate Present A 154 Fetus Movement A Yes Comments Follow-up anatomy US order. Went to ER 11/17 for pelvic pain, no bleeding. Pain resolved. Flowsheet Date 12/13/2015 Villar Score Blood Edema Fundus Height Fundus Units Glucose Ketones Leukocytes Nitrite Labor Signs Protein Cervic Dilation Cervic Effacement Cervic Station neg none 20 cm 1+ negative neg Type Weight in lbs Pre/Post Dialysis Refused 169.310746189154 BP Diastolic BP Location Tested BP Systolic BP Type 70 122 sitting Fetus Heart Rate Present A 146 Fetus Movement A Yes Comments Ate pancakes with syrup befo re visit. Flowsheet Date 01/09/2016 Villar Score Blood Edema Fundus Height Fundus Units Glucose Ketones Leukocytes Nitrite Labor Signs Protein Cervic Dilation Cervic Effacement Cervic Station neg none 24 cm none negative neg Type Weight in lbs Pre/Post Dialysis Refused 176.717679750878 BP Diastolic BP Location Tested BP Systolic BP Type 64 114 sitting Fetus Heart Rate Present A 141 Fetus Movement A Yes Comments Flowsheet Date 01/30/2016 Villar Score Blood Edema Fundus Height Fundus Units Glucose Ketones Leukocytes Nitrite Labor Signs Protein Cervic Dilation Cervic Effacement Cervic Station neg none 26 cm none negative neg Type Weight in lbs Pre/Post Dialysis Refused 180.974937710794 BP Diastolic BP Location Tested BP Systolic BP Type 78 118 sitting Fetus Heart Rate Present A 147 Fetus Movement A Yes Comments 28 week labs. Rhogam. Flowsheet Date 02/15/2016 Villar Score Blood Edema Fundus Height Fundus Units Glucose Ketones Leukocytes Nitrite Labor Signs Protein Cervic Dilation Cervic Effacement Cervic Station none 28 cm Type Weight in lbs Pre/Post Dialysis Refused 185.038234405123 BP Diastolic BP Location Tested BP Systolic BP Type 62 112 sitting Fetus Heart Rate Present A 154 Present Fetus Movement A Yes Comments doing well, Boy named Preet Flowsheet Date 02/29/2016 Villar Score Blood Edema Fundus Height Fundus Units Glucose Ketones Leukocytes Nitrite Labor Signs Protein Cervic Dilation Cervic Effacement Cervic Station 29 cm Type Weight in lbs Pre/Post Dialysis Refused 186.840410754174 BP Diastolic BP Location Tested BP Systolic BP Type 72 122 sitting Fetus Heart Rate Present A 146 Present Fetus Movement A Yes Comments 31 wweks, doing well, GBS ne xt time Flowsheet Date 03/22/2016 Villar Score Blood Edema Fundus Height Fundus Units Glucose Ketones Leukocytes Nitrite Labor Signs Protein Cervic Dilation Cervic Effacement Cervic Station 31 cm Type Weight in lbs Pre/Post Dialysis Refused 189.342986758112 BP Diastolic BP Location Tested BP Systolic BP Type 66 118 sitting Fetus Heart Rate Present A 145 Present Fetus Movement A Yes Comments Doing well, some [place] hic k ctxGBS today Flowsheet Date 04/09/2016 Villar Score Blood Edema Fundus Height Fundus Units Glucose Ketones Leukocytes Nitrite Labor Signs Protein Cervic Dilation Cervic Effacement Cervic Station 34 cm none trace 1cm 70% -3 Type Weight in lbs Pre/Post Dialysis Refused 190.460349226733 BP Diastolic BP Location Tested BP Systolic BP Type 76 123 sitting Fetus Heart Rate Present A 140 Present Fetus Movement A Yes Comments doing well, no new issues Flowsheet Date 04/16/2016 Villar Score Blood Edema Fundus Height Fundus Units Glucose Ketones Leukocytes Nitrite Labor Signs Protein Cervic Dilation Cervic Effacement Cervic Station none 35 wks Type Weight in lbs Pre/Post Dialysis Refused 191.549264061119 BP Diastolic BP Location Tested BP Systolic BP Type 76 116 sitting Fetus Heart Rate Present A 152 Fetus Movement A Yes Comments on L&D last night; had parker nurse... labor discussed Flowsheet Date 04/23/2016 Villar Score Blood Edema Fundus Height Fundus Units Glucose Ketones Leukocytes Nitrite Labor Signs Protein Cervic Dilation Cervic Effacement Cervic Station 35 cm 2cm 80% -3 Type Weight in lbs Pre/Post Dialysis Refused 191.732340552455 BP Diastolic BP Location Tested BP Systolic BP Type 82 126 sitting Fetus Heart Rate Present A 152 Present Fetus Movement A Yes Comments doing well, discussed pros a nd cons of induction Flowsheet Date 05/02/2016 Villar Score Blood Edema Fundus Height Fundus Units Glucose Ketones Leukocytes Nitrite Labor Signs Protein Cervic Dilation Cervic Effacement Cervic Station Type Weight in lbs Pre/Post Dialysis Refused BP Diastolic BP Location Tested BP Systolic BP Type Fetus Heart Rate Present Fetus Movement Comments Menstrual History Last Menstrual Date Menses Monthly On Bcp Conception Prior Menses Frequency Hcg Plus Date Menarche Onset Age 0307/13/2015 true false 28 12 Genetic Screening And Infection History Question Response Note Patient's Age Will Be 35 Yea rs Or Older At Estimated Date of Delivery false Thalassemia (Swazi, Ghanaian, Mediterranean, Or Background): MCV < 80 false Neural Tube Defect (Meningom yelocele, Spina Bifida, Or Anencephaly) false Congenital Heart Defect false Down Syndrome false Haider-Sachs (eg, Jehovah'S Witness, Cajun, Estonian-Maltese) f alse Jair Disease false Sickle Cell Disease Or Trait () false Hemophilia Or Other Blood Disorders false Muscular Dystrophy false Cystic Fibrosis false Meyers Chuck's Chorea false Mental Retardation/Autism true FOB's nephew with autism Other Inherited Genetic Or Chromosomal Disorder false Maternal Metabolic Disorder (eg, Type 1 Diabetes, PKU) false Patient Or Baby's Father Had A Child With Defects Not Listed Above false Recurrent Loss, Or A Stillbirth false Medications (including Suppl ements, Vitamins, Herbs, OTC Drugs), Illicit/Recreational Drugs, Alcohol true PNV Any Other Genetic History false Live With Someone With TB Or Exposed To TB false Patient Or Partner Has History Of Genital Herpes false Rash Or Viral Illness Since Last Menstrual Perio d false History Of STD, Gonorrhea, Chlamydia, HPV, Syphi lis true HPV Delivery Information Delivery Date Delivery Type Labor Anesthesia Weeks Gestation Incision Type Labor Labor Length Hrs Delivered By Post Complications Tubal Sterilization Discharge Date Comments 6 [facility] idural 39.5 Low Transvers e false 4 Carlos Gordillo MD 04/30/2016 failure to descend Discharge Information Feeding Method Contraceptive Method Maternal HG B and HCT Levels Breast
--- OUTSIDE RECORDS SUMMARY | 2024-07-07 08:59 | XMS_ITS | Continuity of Care Document ---
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 It does not include entries that were removed or entered in error. Problem Status Onset Date Problem Type Date of Resolution Comments Source orthopedic disorders impingement syndrome shoulder Active Condition DoD joint pain, localized in the shoulder Active Condition DoD foot pain (soft tissue) Active Condition DoD ankle joint pain Active Condition [facility] joint pain, localized Inactive Condition [facility] upper respiratory infection Inactive Condition [facility] dehydration (Na, H2O) Inactive Condition [facility] pharyngitis Inactive Condition [facility] refractive error Active Condition [facility] visit for: services physical Active Condition [facility] visit for: screening exam pulmonary tuberculosis Active Condition DoD Allergies, Adverse Reactions, Alerts Combined list of allergies from Department [facility] and [facility] facilities. It does not include entries that were removed or entered in error. Substance Category Reaction Severity Reaction type Status Date Reported Comments Source BACTRIM (SULFAMETHO XAZOLE/TRIM ETHOPRIM) Drug allergy (disorder) Rash active 4 [place] cephalexin Propensity to adverse reactions to substance Rash Active 4 Unknown Organizat ion KEFLEX (CEPHALEXIN ) Drug allergy (disorder) Rash active 4 [place] OTHER {Cla } Drug allergy (disorder) Rash, Other: LATEX active 4 [place] OTHER {Cla } Propensity to adverse reactions to substance Rash Active 4 System Message: Unknown Other - Missing Comment for unique id [id number] 11/20/2021 6:55:09 AM Unknown Organizat ion sulfamethox azole-trime thoprim Propensity to adverse reactions to substance Rash Active 4 Unknown Organizat ion Immunizations Combined list of available immunizations from the Department of [facility] and Veterans Affairs facilities. Immunization Series Date Given Administered By Site Reaction Lot Number CVX Code Drug Senior Informatica Developer Status Comments Source influenza, injectable, quadrivalent- pf 2020 [id number] Seqirus complet ed influenza , injectabl e, quadrival ent-pf 01/18/21 Given Ambulat ory Pharmac y influenza, injectable, quadrivalent 2018 [id number] Seqirus complet ed influenza , injectabl e, quadrival ent 01/16/19 Given Ambulat ory Pharmac y influenza virus vaccine, unspecified 2016 [id number] GlaxoSmithKli ne complet ed influenza virus vaccine, unspecifi ed 02/17/17 Given Ambulat ory Pharmac y influenza, seasonal, injectable-pf 2015 [id number] Seqirus complet ed influenza , seasonal, injectabl e-pf 01/19/16 Given Ambulat ory Pharmac y influenza, injectable, quadrivalent- pf 2014 [id number] GlaxoSmithKli ne complet ed influenza , injectabl e, quadrival ent-pf 02/11/15 Given Ambulat ory Pharmac y influenza, injectable, quadrivalent- pf 2014 [id number] 150 sanofi pasteur complet ed influenza , injectabl e, quadrival ent-pf 07/13/14 Given Ambulat ory Pharmac y hepatitis A-hepatitis B vaccine 2013 [id number] 104 GlaxoSmithKli ne complet ed hepatitis A-hepatit is B vaccine 10/06/13 Given Ambulat ory Pharmac y adenovirus vaccine, live 2013 [id number] 143 Teva Pharmaceutica complet ed adenoviru s vaccine, live 10/06/13 Given Ambulat ory Pharmac y influenza, seasonal, injectable-pf 2013 [id number] 140 sanofi pasteur complet ed influenza , seasonal, injectabl e-pf 10/06/13 Given Ambulat ory Pharmac y hepatitis A and hepatitis B vaccine 3 2013 [id number] 104 Disenia (SKB) complet ed hepatitis A and hepatitis B vaccine DoD Influenza, seasonal, injectable, preservative free 1 2013 [id number] 140 Sanofi Pasteur (PMC) complet ed Influenza , seasonal, injectabl e, preservat sergio free DoD Adenovirus, type 4 and type 7, live, oral 1 2013 [id number] 143 [facility] (BRR) complet ed Adenoviru s, type 4 and type 7, live, oral DoD measles, mumps and rubella virus vaccine 1 2013 UNK 03 Unknown (UNK) Not Given measles, mumps and rubella virus vaccine DoD varicella virus vaccine 1 2013 UNK 21 Unknown (UNK) Not Given varicella virus vaccine DoD hepatitis A-hepatitis B vaccine 2009 [id number] 104 GlaxoSmithKli ne complet ed hepatitis A-hepatit is B vaccine 08/21/09 Given Ambulat ory Pharmac y hepatitis A and hepatitis B vaccine 2 2009 [id number] 104 SmithKline (SKB) complet ed hepatitis A and hepatitis B vaccine DoD Novel influenza-H1N 1-09, injectable 2009 [id number] 127 MediMayur [employer] complet ed Novel influenza -V3E9-80, injectabl e 07/08/09 Given Ambulat ory Pharmac y tetanus, diphtheria, acellular pertu is 2009 [id number] 115 GlaxoSmithKli ne complet ed tetanus, diphtheri a, acellular pertussis 07/08/09 Given Ambulat ory Pharmac y meningococcal A,C,Y,W-135 (MCV4P) 2009 [id number] 114 sanofi pasteur complet ed meningoco ccal A,C,Y,W-1 35 (MCV4P) 07/08/09 Given Ambulat ory Pharmac y influenza virus vaccine, live 2009 [id number] 111 Medimmune Inc comple t ed influenza virus vaccine, live 07/08/09 Given Ambulat ory Pharmac y hepatitis A-hepatitis B vaccine 2009 [id number] [id number] 104 GlaxoSmithKli ne complet ed hepatitis A-hepatit is B vaccine 07/08/09 Given Ambulat ory Pharmac y poliovirus vaccine, inactivated 2009 [id number] 10 sanofi pasteur complet ed polioviru s vaccine, inactivat ed 07/08/09 Given Ambulat ory Pharmac y poliovirus vaccine, inactivated 1 2009 [id number] 10 Sanofi Pasteur (PMC) complet ed polioviru s vaccine, inactivat ed DoD hepatitis A and hepatitis B vaccine 1 2009 [id number] [id number] 104 SmithKline (SKB) complet ed hepatitis A and hepatitis B vaccine DoD influenza virus vaccine, live, attenuated, for intranasal use 1 2009 [id number] 111 MedImmune, Inc. (MED) complet ed influenza virus vaccine, live, attenuate d, for intranasa l use DoD meningococcal polysaccharid e (groups A, C, Y and W-135) diphtheria toxoid conjugate vaccine (MCV4P) 1 2009 [id number] 114 Sanofi Pasteur (PMC) complet ed meningoco ccal polysacch aride (groups A, C, Y and W-135) diphtheri a toxoid conjugate vaccine (MCV4P) DoD tetanus toxoid, reduced diphtheria toxoid, and acellular pertu is vaccine, adsorbed 1 2009 [id number] [facility] Disenia (SKB) complet ed tetanus toxoid, reduced diphtheri a toxoid, and acellular pertussis vaccine, adsorbed DoD Novel influenza-H1N 1-09, injectable 1 2009 [id number] 127 MedImmSocialDeck, Inc. (MED) complet ed Novel influenza -V9X2-46, injectabl e DoD Encounters Combined list of: 1) Encounters from Department of Veterans Affairs facilities going backup to the last 18 months, not all VA inpatient encounters are included; 2) Encounters from the Department of Defense facilities going backup to 280 months. Location Location Details Encounter Type Encounter Number Reason For Visit Attending Provider ADM Date DC Date Status Disposition Source [facility](PES Optometry -Trainee) OUTPATIENT [id number] GAL DIAL 07/06 Released w/o Limitations [facility](P ES Optomet ry-Nick nee) [facility](DEEDEE C Post Immunizat ion) OUTPATIENT [id number] IET PPD RUBIA SEPULVEDA 07/06 Released w/o Limitations [facility](M AHC Post Immuniz ation) [facility] Ambulator y) OUTPATIENT [id number] TARI MANTILLA 07/22 Sick at Home/Quarter s [facility](T MC Ambulat ory) [facility] Ambulator y) OUTPATIENT [id number] KAIDEN MONTGOMERY *EVER* 07/23 Released w/o Limitations [facility](T MC Ambulat ory) [facility] [place] Bas) OUTPATIENT [id number] toe and low back pain AMBER WORTHINGTON 08/04 Released with Work/Duty Limitations [facility](F bela Michael [employer]i [place] [employer]) [facility] [place] [employer] [facility]) OUTPATIENT [id number] Ankle Pain SILVER SINGH 08/14 Immediate Referral Medical Group(F bela Michael Athleti Inorganic Chemical 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 Bas) [facility] Physical Therapy) OUTPATIENT [id number] L Ankle (AT) - Initial Visit AMY CORONA 08/14 Released with Work/Duty Limitations [facility] Physica l Therapy ) [facility] Ambulator y) OUTPATIENT [id number] ROCIO CAMILO 08/23 Released with Work/Duty Limitations [facility] Ambulat ory) [facility] Physical Therapy) OUTPATIENT [id number] L Shoulde r - Initial Visit AMY CORONA 08/24 Released with Work/Duty Limitations [facility]( MC Physica l Therapy ) RONALDO Gregorio(Hearin g Conservat ion) OUTPATIENT [id number] Notes Entered by: Glenna TONEY 29 Sep 2013 0954 ------- ------- ------- ------- -- [address] JANEL TOENY 09/29 Released w/o Limitations [facility] [place](Hear ing Conserv ation) RONALDO Gregorio(OST Optometry ) OUTPATIENT [id number] Notes Entered by: CARLOS MANUEL GONZALES 29 Sep 2013 1536 ------- ------- ------- ------- -- OST IET EMETERIO MADRID 09/29 Released w/o Limitations [facility] [place] Optomet ry) RONALDO Gregorio(OST Clinic) OUTPATIENT [id number] Notes Entered by: Anibal QUACH 07 Oct 2013 0817 ------- ------- ------- ------- -- SYED JACKMAN 10/07 Released w/o Limitations [facility] [place]) [facility] [place] Athlete) OUTPATIENT [id number] Notes Entered by: JESS CANAS CH 12 Oct 2013 0841 ------- ------- ------- ------- -- F/-40 Foot Eval ROSSANA BAUTISTA 10/12 Released with Work/Duty Limitations [facility] [place] ) [facility] [place] Ath[place]) OUTPATIENT [id number] Notes Entered by: JESS CANAS CH 14 Oct 2013 1223 ------- ------- ------- ------- -- F/-40 Foot F/U ROSSANA BAUTISTA 10/14 Released with Work/Duty Limitations [facility] [place] ) [facility] [place]) OUTPATIENT [id number] Notes Entered by: JESS CANAS CH 18 Oct 2013 0957 ------- ------- ------- ------- -- F/1-40 Foot F/U ROSSANA BAUTISTA 10/18 Released w/o Limitations [facility] [place] ) [facility] [place] 2 Clinic) OUTPATIENT [id number] Notes Entered by: QIANA CEJA 26 Oct 2013 1245 ------- ------- ------- ------- -- 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) [facility]- SORE THROAT, CLARIBEL DANIEL 10/26 Released w/o Limitations [facility] [place] 2 Clinic) [place](Emerge ncy Room) OUTPATIENT [id number] GAL LUIS 06/07 Released w/o Limitations [place]Al[place] OUTPATIENT [id number] BARB MORALES 07/16 Released w/o Limitations [place]([address]) OUTPATIENT [id number] S/FREQU ENT URINATI ON/PAIN WHILE URINATI RAMESH SIN 08/01 Released w/o Limitations [place]([address]) [place]([address]) OUTPATIENT [id number] PT ST Elen/RUBIA DOHERTY 08/16 Released w/o Limitations [place]([address]) [place]) TELE CONSULT [id number] Notes Entered by: JAMES WHITE 10 Oct 2014 0948 ------- ------- ------- ------- -- PT STATED NEED LAB WORK AND ULTRA SOUND RESULTS ADAN BENJAMIN 10/10 [place]([address]) [place] [facility] OUTPATIENT [id number] Follow up for labs and ultraso und RUBIA GERARD 10/24 Released w/o Limitations [place]([address]) [place] [facility] OUTPATIENT [id number] s/ fu meds RUBIA Hamlin 12/19 Released w/o Limitations [place]([address]) [place] [facility]) OUTPATIENT [id number] f/u for meds evRUBIA Ram ENOCH 01/19 Released w/o Limitations [place] [place] OUTPATIENT [id number] SELF/ST ATES F/UP FOR OVARY CONCERN RUBIA GERARD ENOCH 03/15 Released w/o Limitations [place]) Procedures Combined list of: 1) Procedures from Department of [facility] Affairs facilities going back up to thelast 18 months, not all VA non-surgical procedures are included; 2) All procedures from the Department of Defense facilities. Procedure Procedure Type Code Date Perfomer Comments [facility] e ATHLETIC TRAINING RE-EVALUATION 10/19/19 14 [facility] FOOT PRESSURE OFF LOADING/SUPPORTIVE DEVICE, ANY TYPE, EACH 10/15/19 14 [facility] UNLISTED PROCEDURE, CASTING OR STRAPPING 10/13/19 14 [facility] HEPATITIS A AND HEPATITIS B VACCINE (HEPA-HEPB), ADULT DOSAGE, FOR INTRAMUSCULAR USE 10/08/19 14 [facility] FITTING OF SPECTACLES, EXCEPT FOR APHAKIA; MONOFOCAL 09/30/19 14 [facility] PATIENT EDUCATION, NOT OTHERWISE CLASSIFIED, NON-PHYSICIAN PROVIDER, GROUP, PER SESSION 09/30/19 14 [facility] THERAPEUTIC PROCEDURE,1 OR MORE AREAS,EACH 15 MINUTES;NEUROMUSCU LAR REEDUCATION OF MOVEMENT,BALANCE,C OORDINATION,KINEST HETIC SENSE,POSTURE,AND/ OR PROPRIOCEPTION FOR SITTING AND/OR STANDING ACTIVITIES 08/25/19 10 [facility] ANKLE ORTHOSIS, ANKLE GAUNTLET OR SIMILAR, WITH OR WITHOUT JOINTS, PREFABRICATED, [id number] 08/15/19 10 [facility] ATHLETIC TRAINING EVALUATION 08/15/19 10 [facility] EDUCATION &TRAINING, PATIENT SELF-MGT QUALIFIED, NONPHYSICIAN HEALTH COUGAR HUNTER USING STDIZED CURRICULUM, [id number] W THE PATIENT (COULD INCL CAREGIVER/FAMILY) EA 30 MIN; INDIVIDUAL PATIENT 08/05/19 10 [facility] INFUSION, NORMAL SALINE SOLUTION , 1000 CC 07/23/19 10 [facility] SKIN TEST; TUBERCULOSIS, INTRADERMAL 07/06/19 10 [facility] FITTING OF SPECTACLES, EXCEPT FOR APHAKIA; MONOFOCAL 07/06/19 10 [facility] EAR MOLD/INSERT, NOT DISPOSABLE, ANY TYPE 07/06/19 10 [facility] Athletic Training Re-evaluation Athletic Training Re-evaluation 37100 10/19/19 14 ROSSANA BAUTISTA [facility] Foot pre ure off loading/supportive device, any type, each 10/15/19 14 ROSSANA BAUTISTA Athletic Training Re-evaluation Athletic Training Re-evaluation 77560 10/15/19 14 ROSSANA BAUTISTA Orthopedic Strapping Orthopedic Strapping 30388 10/13/19 14 ROSSANA BAUTISTA Arch Taping [facility] Athletic Training Evaluation Athletic Training Evaluation 86174 10/13/19 14 ROSSANA BAUTISTA [facility] Vaccines Adenovirus Type 4 Live, For Oral Use Vaccines Adenovirus Type 4 Live, For Oral Use 40865 10/11/[facility] Vaccines Adenovirus Type 7 Live, For Oral Use Vaccines Adenovirus Type 7 Live, For Oral Use 94506 10/11/19 14 [facility] Influenza Split Virus Vaccine 0.5mL Dosage Intramuscular Preservative Free 10/11/19 14 [facility] Hepatitis A And Hepatitis B (Intramuscular Use) Adult Dosage Hepatitis A And Hepatitis B (Intramuscular Use) Adult Dosage 65986 10/11/19 14 [facility] Immunization Admin By Intranasal / Oral Route One Vaccine Immunization Admin By Intranasal / Oral Route One Vaccine 18469 10/11/19 14 [facility] Eddie [facility] Immunization Admin Intranasal / Oral Each Additional Vaccine Immunization Admin Intranasal / Oral Each Additional Vaccine 75619 10/11/19 14 [facility] Eddie [facility] Immunization Administration By Injection, Each Additional Vaccine Immunization Administration By Injection, Each Additional Vaccine 71446 10/11/19 14 FLOR, SYED Eddie [facility] Spectacles Services Fitting Monofocal Except For Aphakia Spectacles Services Fitting Monofocal Except For Aphakia 87013 09/30/19 14 ARIANA GONZALES [facility] Screening Test Of Visual Acuity, Quantitative, Bilateral Screening Test Of Visual Acuity, Quantitative, Bilateral 72985 09/30/19 14 ARIANA GONZALES [facility] Ear Protector Attenuation Measurements Ear Protector Attenuation Measurements 99619 09/30/19 14 JANEL TONEY [facility] Audiometry Group Testing Audiometry Group Testing 96496 05/21/20 14 JANEL TONEY Patient education, not otherwise cla ified, non-physician provider, group, per se ion 09/30/19 14 JANEL TONEY Physical Therapy Neuromuscular Re-education Physical Therapy Neuromuscular Re-education 17406 08/25/19 10 AMY CORONA Patient Counseling Medical Management Individual Patient Patient Counseling Medical Management Individual Patient [id number] 08/25/19 10 AMY CORONA Physical Therapy Service Evaluation Physical Therapy Service Evaluation 62361 08/25/19 10 AMY CORONA Ankle orthosis, ankle gauntlet or similar, with or without joints, prefabricated, [id number] 08/15/19 10 AMY CORONA Patient Counseling Medical Management Individual Patient Patient Counseling Medical Management Individual Patient [id number] 08/15/19 10 AMY CORONA Physical Therapy Service Evaluation Physical Therapy Service Evaluation 58424 08/15/19 10 AMY CORONA Athletic Training Evaluation Athletic Training Evaluation 14131 08/15/19 10 SILVER SNIGH [facility] Athletic Training Re-evaluation Athletic Training Re-evaluation 96609 08/08/19 10 AMBER WORTHINGTON Patient Counseling Medical Management Individual Patient Patient Counseling Medical Management Individual Patient [id number] 08/05/19 10 AMBER WORTHINGTON Athletic Training Evaluation Athletic Training Evaluation 73814 08/05/19 10 AMBER [place]INGTON Taping Toes Taping Toes 97690 08/05/19 10 AMBER WORTHINGTON hallux MTPJ, on [id number] & [id number] [facility] Physician Supervised Injection Intramuscular Antibiotic Physician Supervised Injection Intramuscular Antibiotic 34662 07/23/19 10 TARI MANTILLA Parenteral Fluids IV Infusion As Concurrent Hydration Parenteral Fluids IV Infusion As Concurrent Hydration 49051 07/23/19 10 TARI MANTILLA Visual Function Screening Visual Function Screening 40326 07/06/19 10 [facility] Services Fitting Monofocal Except For Aphakia Spectacles Services Fitting Monofocal Except For Aphakia 07280 07/06/19 10 [facility] Skin Test Anergy Tuberculin Intradermal Skin Test Anergy Tuberculin Intradermal 22774 07/06/19 10 RUBIA SEPULVEDA Immunization Administration By Injection, One Vaccine Immunization Administration By Injection, One Vaccine 98517 07/06/19 10 RUBIA SEPULVEDA No data available for this section Ambulato ry Pharmacy Social History Combined list of available smoking, tobacco, and other social history from Department of Defense and Veterans Affairs facilities. Social History Type Response Date Comment Sourc e This section is an empty soc ial history section. DoD Sexual Orientation Ambula tory Pharmacy Gender identity Ambulator y Pharmacy Sex Representation Female Unknow n Organization Assessment and Plan Combined list of future care activities from Department of Defense and Veterans Affairs facilities (e.g., assessment and plan notes, appointments, orders, and referrals). Additional future care activities may be listed in the Plan of Care section. Result Assessment and Plan Date Source Assessment and Plan No data available for this section 07/07/2024 Ambulatory Pharmacy Functional Status Combined list of recent functional and cognitive assessments recorded at Department of Defense and Veterans Affairs (VA).VA Functional [place] Measurement (FIM) Scale: 1 = Total Assistance (Subject = 0% +), 2 = Maximal Assistance (Subject = 25% +), 3 = Moderate Assistance (Subject = 50% +), 4 = Minimal Assistance (Subject = 75% +), 5 = Supervision, 6 = Modified [place] (Device), 7 = Complete [place] (Timely, Safely). Assessment Date/Time Source Assessment Type Assessment Skill Assessment Score Assessment Details No data available for this section
--- OUTSIDE RECORDS SUMMARY | 2024-07-07 08:59 | XMS_ITS | Clinical Summary ---
Author Organization [facility] Address [address] [place] [address] Care Team Providers Care Manager Technical Services Name Role Phone Portillo Hernández MD Unavailable Jack Milian MD Unavailable [phone] Carmen Kee MD Unavailable [phone] Carmen Kee MD Primary Care Provide r Allergies Active Allergy Reactions Criticality Noted Date Comments Cephalexin Rash Medium 10/05/2013 Latex Swelling Medium Localized swelling Nickel Rash Medium 06/21/2019 Sulfamethoxazole-Trimethoprim Rash Medium Medications multivit 09-ryuc-kzjayf 6-dha 29 mg iron-1 mg -300 mg capsule Take by mouth daily Active triamcinolone (KENALOG) 0.1 % ointmentIndicat ions:skin rash Apply topically 2 (two) times a day as needed for irritation or rash 80 g 4 Active Active Problems Problem Noted Date Diagnosed Date Suspected chromosome anomaly of fetus affecting management of mother, antepartum 12/30/2023 Overview (12/31/2023): cfDNA screening +T21. Ultrasound 12/29 with cystic hygroma, pleural effusion, and enlarged jugular lymphatics. Counseling: While she understands that none of these findings are diagnostic for T21, all are highly associated with aneuploidy and in the setting of cfDNA screening indicating increased risk for T21, this is the likely diagnosis. We discussed the natural history of fetuses with cystic hygroma and association with other congenital malformations and genetic syndromes. We discussed alternative diagnoses and the role of diagnostic testing to confirm a diagnosis of T21. 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 Likewise, she understands the process of CVS and does not wish to pursue this testing because, like cfDNA, the source of genetic material tested is the placenta. She is aware of the possibility of confined placental mosaicism. We discussed amniocentesis at 15 weeks which would test cells directly, with preliminary results available in 3-4 days (FISH). She is aware of the change in risk with termination dependent upon gestational age and does not wish to wait until confirmation of diagnosis 16 weeks for this procedure. She and her partner are in agreement that they do not want to impact their family by continuing a with a significant genetic abnormality and would like to move forward with termination. I offered the [place] information on informed consent for termination, which they declined. They are residents of [place] and aware of resources available to them for termination. Assessment & Plan (12/31/2023 12:05 PM CDT): cfDNA screening +T21. Ultrasound 12/29 with cystic hygroma, pleural effusion, and enlarged jugular lymphatics. Counseling: While she understands that none of these findings are diagnostic for T21, all are highly associated with aneuploidy and in the setting of cfDNA screening indicating increased risk for T21, this is the likely diagnosis. We discussed the natural history of fetuses with cystic hygroma and association with other congenital malformations and genetic syndromes. We discussed alternative diagnoses and the role of diagnostic testing to confirm a diagnosis of T21. 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 Likewise, she understands the process of CVS and does not wish to pursue this testing because, like cfDNA, the source of genetic material tested is the placenta. She is aware of the possibility of confined placental mosaicism. We discussed amniocentesis at 15 weeks which would test cells directly, with preliminary results available in 3-4 days (FISH). She is aware of the change in risk with termination dependent upon gestational age and does not wish to wait until confirmation of diagnosis 16 weeks for this procedure. She and her partner are in agreement that they do not want to impact their family by continuing a with a significant genetic abnormality and would like to move forward with termination. I offered the [place] information on informed consent for termination, which they declined. They are residents of [place] and aware of resources available to them for termination. Rh negative state in antepartum period Maternal care for suspected chromosomal abnormality in fetus, fetus 1 12/23/2023 Supervision of high-risk , first betzy atkins 12/23/2023 Overview (12/30/2023): [] Co-management vs. [] Full MFM Care; [] Red Team [] Blue Team Referring Provider: Jack Milian [phone] [x] or Medicare Insurance [x] Dating Criteria: [place] 11/12/23 with BI 07/06/24 [x] Labs: Rh [A-], Ab [negative], Rubella [immune], HIV [non-reactive], HepBSAg [non-reactive], RPR [non-reactive], Hep C [non-reactive], Varicella [not done], GC/CT [negative/negative] [x] Aneuploidy: NIPT positive for Trisomy 21 [] Carrier Screening: [x] CBC/Hgb: 14.9/42.6/plt 314 [x] UCx: 11/05/23: negative [x] Pap: 11/05/23: NILM [] Flu Shot (Jan-Apr): [] COVID [] LD ASA (if indicated) [x] EPDS [3 ] 2nd Tri Labs: [] Anatomy ultrasound: [] CBC/1hr gtt at 24-28wks: [] Tdap (27-36wks): [] Rhogam at 28 wks (if Rh neg): 3rd Tri Labs: [] CBC/HIV/RPR/T&S: [] GBS: [] GC/CT (if indicated): [] testing: [] RSV Counseling [] MOD: [] Place of delivery: [] Last clinic visit SVE: [] IOL start agent: [] Epidural: [] Blood Products [] Consents signed: [] Stop ASA [] MOC: [] Method of feeding: [] Adjunct Political Science Instructor: [] PP Depression Discussed: Assessment & Plan (12/31/2023 12:05 PM CDT): Referring Provider: Jack Milian [phone] [x] or Medicare Insurance [x] Dating Criteria: US 11/12/23 with BI 07/06/24 [x] Labs: Rh [A-], Ab [negative], Rubella [immune], HIV [non-reactive], HepBSAg [non-reactive], RPR [non-reactive], Hep C [non-reactive], Varicella [not done], GC/CT [negative/negative] [x] Aneuploidy: NIPT positive for Trisomy 21 [] Carrier Screening: [x] CBC/Hgb: 14.9/42.6/plt 314 [x] UCx: 11/05/23: negative [x] Pap: 11/05/23: NILM [] Flu Shot (Jan-Apr): [] COVID [] LD ASA (if indicated) [x] EPDS [3 ] Rash 12/09/2023 Assessment & Plan (12/09/2023 10:58 AM CDT): Chronic new concern Will send topical steroid cream Apply twice a day for 7-14 days She will check with her ob to be sure this is safe in Referral to dermatology given F/u prn Pain of left thumb 09/05/2023 Assessment & Plan (09/05/2023 3:55 PM CDT): Xrays ordered, oral steroids ordered. Tenosynovitis of left wrist 08/20/2023 BMI 25.0-25.9,adult 06/06/2023 Hair loss 06/06/2023 Assessment & Plan (06/06/2023 9:49 AM TUBE TEST TECHNICIAN): Hair loss usually resolves within 15 months , but the scalp hair may never be as dense as it was prior to . Referred to dermatology for further evaluation and management. Labs ordered, will follow. Arthralgia of multiple sites 06/06/2023 Assessment & Plan (06/06/2023 9:50 AM TUBE TEST TECHNICIAN): Baseline labs ordered for autoimmune disorders. Will follow. Previous delivery affecting , antepartum 01/03/2023 Overview (12/30/2023): Two prior CS. Decreased appetite 02/27/2022 Assessment & Plan (02/27/2022 11:12 AM CDT): Will get baseline labs Encourage to drink ensure or boost to get nutrients in F/u based on results Encounter for wellness examination 02/21/2021 Assessment & Plan (12/08/2023 12:50 PM CDT): Ordered CBC, cmp, lipid, hgb a1c, hep b, TSH, and free t4 Flu:recommended every february Pap smear:goes to ob Mammo: goes to ob F/u in 1 year for annual Assessment & Plan (02/27/2022 11:12 AM CDT): Ordered CBC, cmp, lipid, hgb a1c, HIV, hep c, TSH, and free t4 UA Flu:given today Pap smear:goes to ob Mammo: goes to ob F/u in 1 year for annual Assessment & Plan (02/21/2021 12:45 PM CDT): - Acute concerns: addressed, chronic left hip pain, wants second opinion - Mental health: no significant psychiatric/mental health conditions affecting her day to day functioning - Dental health: Discussed importance of regular tooth brushing, flossing, and dental visits. 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 [employer] - History of left revision proximal femoral osteotomy with bone grafting and subsequent hardware removal - recently told will need a total hip replacement for arthritis - Follows with orthopedics but would like to get a second opinion - [facility], referral placed - not on narcotic medications Lumbar radiculopathy 06/03/2017 Estimated Date of Delivery Comme nts Yes 07/06/2024 Based on Ultraso und Resolved Problems Problem Noted Date Diagnosed Date Resolved Date History of section complicating 12/23/2023 12/30/2023 Wrist pain, acute, left 09/05/202312/11 Assessment & Plan (09/05/2023 3:54 PM CDT): Xrays ordered, Rx given. Will follow. Term 01/14/2023 12/23/2023 with 37 weeks completed gestation 01/03/2023 12/23/2023 Jaw pain 05/19/2020 02/21/2021 Assessment & Plan (05/19/2020 6:31 PM TUBE TEST TECHNICIAN): Trial of oral steroids. Encouraged patient to f/u with her dentist. Otalgia, left 05/19/2020 02/21/2021 Retained orthopedic hardware 04/03/2020 12/30/2023 Overview (04/03/2020): Added automatically from request for surgery [id number] Femoroacetabular impingement of left hip 11/24/2017 05/17/2020 Overview (11/24/2017): Added automatically from request for surgery [id number] Tear of left acetabular labrum 11/24/2017 05/17/2020 Overview (11/24/2017): Added automatically from request for surgery [id number] Left hip pain 11/24/2017 05/17/2020 Overview (11/24/2017): Added automatically from request for surgery [id number] Hip injury, left, sequela 06/03/2017 Trochanteric bursitis, left hip 04/25/2017 05/17/2020 Hip abductor tendinitis, left 04/25/2017 05/17/2020 Immunizations Immunization Administration Dates Next Due DTP 1990 HiB 1990 Influenza, Quadrivalent, Spl it, Preservative Free, Intramuscular 02/27/2022,01/18/2021,01/25/2020 Influenza, Unspecified 06/05/2023(Deferr ed: Patient Refused),06/06/2022(Deferred: Patient Refused),01/18/2021,02/09/2019 OPV 1990 Rho (D) Immune Globulin 04/28/2016 Tdap 12/19/2022,03/22/2016 Surgical History Surgery Date Site/Laterality Comments SECTION 2022 HIP ARTHROSCOPY 11/09/2017 - 12/09/2017 Left WISDOM TOOTH EXTRACTION 05/12/2008 - 05/11/2009 OSTEOTOMY FEMUR / SHAFT / SUPRACONDYLAR W/ FIXATION and revision 07/2019 FLUORO GUIDED ASPIRATION OR INJECTION LARGE JOINT LEFT 02/19/2021 Left Medical History Medical History Date Comments Hip injury Left Hip Labrum Injury Migraines no headaches sin ce stopped OCs Arthritis Former smoker Quit 09/2017 Hip impingement syndrome Malignant hyperthermia Mother an d Maternal Aunt Family History Medical History Relation Name Comments Alcohol abuse Father Cancer Father Lung cancer Father Lung disease Father Mental illness Father Coronary artery disease Father's Brother Anesthesia problems Mother Malignan t Hyperthermia Breast cancer Mother Cancer Mother Diabetes Mother Hypertension Mother Malig Hyperthermia Mother Anesthesia problems Mother's Sister Malig Hyperthermia Mother's Sister Cancer Other Coronary artery disease Paternal Grandfather s/p stents Relation Name Status Comments Father Father's Brother Alive Mother Mother's Sister Other Paternal Grandfather Social History Tobacco Use Types Packs/Day Years Used Date Smoking Tobacco: Former Cigarettes 0.5 10.3 2 008 - 09/2017 Smokeless Tobacco: Never Tobacco Cessation:Counseling Given: Not Answered Alcohol Use Standard Drinks/Week Comments Yes 0 (1 standard drink = 0.6 oz pur e alcohol) rare Humiliation, Afraid, Rape, and Kick questionnair e Answer Date Recorded Within the last year, have y ou been afraid of your partner or ex-partner? No 01/14/2023 Within the last year, have y ou been humiliated or emotionally abused in other ways by your partner or ex-partner? No Within the last year, have y ou been kicked, hit, slapped, or otherwise physically hurt by your partner or ex-partner? No 01/14/2023 Within the last year, have y ou been raped or forced to have any kind of sexual activity by your partner or ex-partner? No 01/14/2023 Social Connection and Isolat ion Panel [NHANES] Answer Date Recorded In a typical week, how many times do you talk on the phone with family, friends, or neighbors? More than three times a week 01/14/2023 How often do you get togethe r with friends or relatives? More than three times a week 01/14/2023 How often do you attend [facility] or [facility] services? Never 01/14/2023 Do you belong to any clubs o r organizations such as roman catholic groups, unions, fraternal or athletic groups, or school groups? Yes 01/14/2023 How often do you attend meet ings of the clubs or organizations you belong to? More than 4 times per year 01/14/2023 Are you , , di vorced, , never , or living with a partner? 01/14/2023 AUDIT-C Answer Date Recorded Q1: How often do you have a drink containing alcohol? Never 12/09/2023 Q2: How many drinks containi ng alcohol do you have on a typical day when you are drinking? Patient does not drink Q3: How often do you have si x or more drinks on one occasion? Never 12/09/2023 Overall Financial Resource Strain (CARDIA) Answe r Date Recorded How hard is it for you to pa y for the very basics like food, housing, medical care, and heating? Not hard at all 01/14/2023 PHQ-2 Answer Date Recorded PHQ-2 Total Score (If total score is 3 or more points, staff should administer the PHQ-9) 0 12/09/2023 [facility] - Occupational Stress Questionnaire Answer Date Recorded Do you feel stress - tense, restless, nervous, or anxious, or unable to sleep at night because your mind is troubled all the time - these days? Not at all 01/14/2023 Exercise Vital Sign Answer Date Recorde d On average, how many days pe r week do you engage in moderate to strenuous exercise (like a brisk walk)? 1 day 01/14/2023 On average, how many minutes do you engage in exercise at this level? 30 min 01/14/2023 Hunger Vital Sign Answer Date Recorded Within the past 12 months, y ou worried that your food would run out before you got the money to buy more. Never true 01/15/20 23 Within the past 12 months, t he food you bought just didn't last and you didn't have money to get more. Never true 01/14/2023 PRAPARE - Transportation Answer Date Re corded In the past 12 months, has l ack of transportation kept you from medical appointments or from getting medications? No 09/2022 In the past 12 months, has l ack of transportation kept you from meetings, work, or from getting things needed for daily living? No 01/14/2023 Housing Stability Vital Sign Answer Erwin e Recorded In the last 12 months, was t here a time when you were not able to pay the mortgage or rent on time? No 01/14/2023 In the last 12 months, how many places have you lived? 1 01/14/2023 In the last 12 months, was t here a time when you did not have a steady place to sleep or slept in a longterm (including now)? No 01/14/2023 Olive Depression Scale Answer Date Recorded Olive Depression Scale Total 0 01/14/2023 The thought of harming myself has occurred to me . Never 01/14/2023 Personal Safety Answer Date Recorded Have you ever been in or are you currently in a harmful physical or emotional relationship or is someone making you feel afraid or unsafe? 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 Not on file Not on file Not on file Obstetrics History Para Term AB IAB SAB Ectopic Multiple Livin g Live Births 5 2 2 2 2 0 2 2 Date Outcome GA Total Labor Labor/2nd/3rd Weight Sex Type Anes PTL [place] A1 A5 Name Clin SAB SAB 2015 Term 39w 0d 3.487 kg (7 lb 11 oz) M CS-LT ranv Epidur al Livin g Complications:Failure to Pro jeremy in Second Stage Delivery [facility] 2022 Term 37w 2d 2.55 kg (5 lb 10 oz) F C-Sec tion Spinal N Livin g 6 7 ,GIRL DEANN Bharti Greenwood , Chica mendes MD Complications:None Delivery [facility] ([facility] L [facility] D PROCEDURE) Current Summary Episode Dates Number of Fetuses Estimated Date of Delivery 12/23/2023 - Present (07/07/2024) 07/06/2024 (set by Jesi Martinez MD on 12/30/2023 based on Ultrasound on 11/12/2023) Dating Summary Based On BI GA Diff Last Menstrual Period on 08/04/2023 (Exact Date) 05/10/2024 +8w1d Ultrasound on 11/12/2023 07/06/2024 Working GA:6w1d Vitals Pregravid Weight Height TWG (As of 07/07/2024) Pregrav id BMI 172.7 cm (5' 8 ) Date GA Fund Present FHR Mvmt BP Weight Edema Alb Glu Ket Dil/ Eff/Sta 4 13w0d Inpatient data not displayed here. See encounter summary. Notes Progress Notes - Juleeedicin e - 12/30/2023 - GA:13w0d 12/30/2023 - 13w0d - Ivonne Mata MD Gris Rodríguez was seen on 12/30/2023 via telemedicine for genetic consultation due to an abnormal cell-free DNA (NIPT) screen. She was accompanied by her . History: Gris Rodríguez is a 33 y.o. 12/30/2023 female with a gestational age of 13w0d based on an Estimated Date of Delivery: 07/06/2024. She denies any exposures to known teratogenic agents. The has been complicated by an abnormal NIPT screen ([id number]) showing a high risk for Trisomy 21. Family Health History: A three-generation pedigree was obtained and is available in the scanned genetics record. Her mother was diagnosed with breast cancer at age of 43 y/o. Her maternal aunt was diagnosed with ovarian cancer in her late 50's. Mr. Rodríguez and her mother had a negative genetic testing for cancer. The reported family history was negative for recurrent loss (>3), infant/childhood deaths, defects, intellectual disabilities/Autism, bleeding/blood clotting disorders, blindness/deafness, and diagnosed genetic conditions. Consanguinity and known [place] ancestry were both denied. The patient reported her ethnic background as [place], [place], [place]. She reported her partner's ethnic background as [place], [place], Malaysian, and [place]. Discussion: Ms. Rodríguez was counseled regarding her abnormal NIPT screen results and the risk for chromosomal abnormalities. Specifically, her NIPT results are positive for Trisomy 21. I reviewed the possible reasons for false positive results and the accuracy of the testing. The positive predictive value (chance the fetus is actually affected) is 73.8%. Ms. Rodríguez is aware that the diagnosis of Down syndrome and other aneuploidies is not within the limitations of ultrasound and cell free DNA screening. We also reviewed her negative results for Trisomy 18, Trisomy 13, and sex chromosome aneuploidy. We discussed the diagnostic testing options of chorionic villus sampling (CVS) and genetic amniocentesis. Ms. Rodríguez was counseled regarding the risks, benefits and limitations of these procedures. We also discussed ultrasound screening. About 75% of fetuses with Trisomy 21 will have abnormal nuchal translucency at 11-14 weeks of gestation. About half of fetuses with Trisomy 21 have anomalies identifiable by second trimester ultrasound. However, she understands that a normal midtrimester ultrasound cannot rule out Trisomy 21. She was aware that they also have the option of additional testing after delivery, such as physical exam and karyotype. We also discussed testing turnaround times and time lines for making decisions about the outcome of the . Plan: Ms. Rodríguez will be seen by [facility] today, and she might be interested in amniocentesis based on the findings that was discussed above. Ivonne Gonzales Pediatrics-Medical Genetics Resident, PGY4 12/30/2023 - [id number] - Noemí Alberto, PACO This was a telemedicine visit with Gris Rodríguez and her which took place via Real-time video connection (UpNextuch, Zoom or similar). During the visit, I was located at home and the patient was located at home in the [facility]. The patient visit started at 9:00am and ended at 9:30am. My total encounter time on 12/30/2023 was 30 minutes which was spent in the activities documented in the note. This includes time spent prior to the visit and after the visit in direct care of the patient. This time does not include time spent in any separately reportable services. The patient has been informed that the visit may not be secure and acknowledged the information. After being given an opportunity to ask questions about and discuss this type of visit, they verbally consented to proceeding with the telephone/video visit and understand that this service replaces an office visit. Dear Dr. Milian, Per your request, Ms. Gris Rodríguez was seen on 12/30/23 via telemedicine for genetic consultation due to an abnormal cell-free DNA (NIPT) screen. She was accompanied by her , Carmen. History: Ms. Rodríguez is a 33 y.o. female with a gestational age of 13w0d based on an Estimated Date of Delivery: 07/06/2024. She denies any exposures to known teratogenic agents. The has been complicated by an abnormal NIPT screen ([id number]) showing a high risk for Trisomy 21. Family Health History: A three-generation pedigree was obtained and is available in the scanned genetics record. Ms. Rodríguez reported that her mother was diagnosed with breast cancer at age 43. She also reported a maternal aunt with ovarian cancer in her late 50s. Ms. Rodríguez reported negative cancer genetic testing for herself and her mother. The reported family history was negative for recurrent loss (>3), infant/childhood deaths, defects, intellectual disabilities/Autism, bleeding/blood clotting disorders, blindness/deafness, and diagnosed genetic conditions. Consanguinity and known [place] ancestry were both denied. The patient reported her ethnic background as ([place], [place], [place]). She reported her partner's ethnic background as ([place], [place], [place], [place]). Discussion: Ms. Rodríguez was counseled regarding her abnormal NIPT screen results and the risk for chromosomal abnormalities. Specifically, her NIPT results are positive for Trisomy 21. I reviewed the possible reasons for false positive results and the accuracy of the testing. The positive predictive value (chance the fetus is actually affected) is 73.8%. Ms. Rodríguez is aware that the diagnosis of Down syndrome and other aneuploidies is not within the limitations of ultrasound and cell free DNA screening. We also reviewed her negative results for Trisomy 18, Trisomy 13, and sex chromosome aneuploidy. We discussed the diagnostic testing options of chorionic villus sampling (CVS) and genetic amniocentesis. Ms. Rodríguez was counseled regarding the risks, benefits and limitations of these procedures. We also discussed ultrasound screening. About 75% of fetuses with Trisomy 21 will have abnormal nuchal translucency at 11-14 weeks of gestation. About half of fetuses with Trisomy 21 have anomalies identifiable by second trimester ultrasound. However, she understands that a normal midtrimester ultrasound cannot rule out Trisomy 21. She was aware that they also have the option of additional testing after delivery, such as physical exam and karyotype. We also discussed testing turnaround times and time lines for making decisions about the outcome of the . Plan: Ms. Rodríguez has ultrasound and MFM consult today (12/30/2023) at our [facility]. She may be interested in amniocentesis based on these findings. Please see reports for those consults sent separately. Thank you for the opportunity to participate in the care of Ms. Rodríguez. If you need further information regarding this visit, please feel free to contact me at [phone]. Sincerely, Noemí Alberto CGC Certified Genetic Counselor Total time spent counselin minutes Progress Notes - Office Visi t - 12/30/2023 - GA:13w0d 12/30/2023 - 13w0d - Jesi Arzate MD Maternal Medicine Consult Note 12/30/2023 Reason for Consult: abnormal NIPT result Requesting Provider: Maicol Dear Dr. Milian, We had the pleasure of seeing your patient Gris Rodríguez in our office today. As you know, she is a 33 y.o. at 13w0d by 1st trimester Ultrasound here today for a consult regarding abnormal NIPT result indicating increased risk for trisomy 21. Her is also complicated by prior x 2. Today she is doing well, she reports no complaints. OB History Para Term AB Living 5 2 2 2 2 SAB IAB Ectopic Multiple Live Births 2 0 2 # Outcome Date GA Lbr Nik/2nd Weight Sex Type Anes PTL Lv 5 Current 4 Term 01/14/23 37w2d 2.55 kg (5 lb 10 oz) F Spinal N CATALINA 3 Term 04/27/16 39w0d 3.487 kg (7 lb 11 oz) M CS-LTranv EPI CATALINA Complications: Failure to Progress in Second Stage 2 SAB 1 SAB Past Gynecologic History: Prior STIs: no History of abnormal pap: no Last pap smear: 02/24/23 normal per patient report Patient's last menstrual period was 08/04/2023 (exact date). Denies history of uterine anomalies or fibroids. History of blood transfusion with delivery 2015. Past Medical History: Diagnosis Date Arthritis Former smoker Quit 09/2017 Hip impingement syndrome Hip injury Left Hip Labrum Injury Malignant hyperthermia Mother and Maternal Aunt Migraines no headaches since stopped OCs Past Surgical History: Procedure Laterality Date SECTION 2022 FLUORO GUIDED ASPIRATION OR INJECTION LARGE JOINT LEFT Left 02/19/2021 HIP ARTHROSCOPY Left 11/2017 OSTEOTOMY FEMUR / SHAFT / SUPRACONDYLAR W/ FIXATION and revision 07/2019 WISDOM TOOTH EXTRACTION 2008 Current Outpatient Medications Medication Sig Dispense Refill multivit 21-tdey-sxynkp 6-dha 29 mg iron-1 mg -300 mg capsule Take by mouth daily triamcinolone (KENALOG) 0.1 % ointment Apply topically 2 (two) times a day as needed for irritation or rash 80 g 0 No current facility-administered medications for this visit. Allergies Allergen Reactions Cephalexin Rash Latex Swelling Localized swelling Nickel Rash Sulfamethoxazole-Trimethoprim Rash Social History Tobacco Use Smoking status: Former Current packs/day: 0.00 Average packs/day: 0.5 packs/day for 10.3 years (5.2 ttl pk-yrs) Types: Cigarettes Start date: 2007 Quit date: 09/2017 Years since quittin.3 Smokeless tobacco: Never Substance and Sexual Activity Drug use: Yes Types: Marijuana Comment: smokes 1-2 times daily Sexual activity: Yes Alcohol Use: Not At Risk (12/09/2023) AUDIT-C Frequency of Alcohol Consumption: Never Average Number of Drinks: Patient does not drink Frequency of Binge Drinking: Never Bachelor's degree in [employer], works at [employer] with and three children Smoke cigarettes, cigars, E-cigs: No Beer, wine, or liquor: No Street drugs/marijuana: No Family History: Family History Problem Relation Age of Onset Hypertension Mother Cancer Mother Diabetes Mother Anesthesia problems Mother Malignant Hyperthermia Malig Hyperthermia Mother Breast cancer Mother Cancer Father Alcohol abuse Father Mental illness Father Lung disease Father Lung cancer Father Coronary artery disease Paternal Grandfather s/p stents Malig Hyperthermia Mother's Sister Anesthesia problems Mother's Sister Coronary artery disease Father's Brother Cancer Other Neural tube defects: No Down syndrome or other chromosomal anomalies: No Hemophilia, sickle cell, bleeding/clotting disorder: No Muscular dystrophy: No Cystic fibrosis: No Intellectual disability or Fragile X: No Austin disease: No Other defects or genetic disorders: No Dating: Estimated Date of Delivery: 07/06/24 based on 6 week US Review of Systems Review of systems per HPI and otherwise all systems are negative Physical Exam Vitals BP 112/62 Pulse 74 Temp 36.6 C (97.8 F) Resp 16 Ht 172.7 cm (5' 8 ) Wt 160 lb (72.6 kg) LMP 08/04/2023 (Exact Date) SpO2 100% BMI 24.33 kg/m General: Healthy, alert, active, cooperative, and in no distress The rest of the exam was deferred due to the consultative nature of this visit. Ultrasound 12/30/2023: Single intrauterine with cardiac activity and biometry consistent with clinical dates. Anatomy assessment as above shows cystic hygroma and enlarged jugular lymphatics. There is also a pleural effusion. Assessment: Ms. Gris Rodríguez is a 33 y.o. at Unknown here today for a consult regarding:NIPT with increased risk for trisomy 21 Recommendations: Suspected chromosome anomaly of fetus affecting management of mother, antepartum cfDNA screening +T21. Ultrasound 12/29 with cystic hygroma, pleural effusion, and enlarged jugular lymphatics. Counseling: While she understands that none of these findings are diagnostic for T21, all are highly associated with aneuploidy and in the setting of cfDNA screening indicating increased risk for T21, this is the likely diagnosis. We discussed the natural history of fetuses with cystic hygroma and association with other congenital malformations and genetic syndromes. We discussed alternative diagnoses and the role of diagnostic testing to confirm a diagnosis of T21. 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 Likewise, she understands the process of CVS and does not wish to pursue this testing because, like cfDNA, the source of genetic material tested is the placenta. She is aware of the possibility of confined placental mosaicism. We discussed amniocentesis at 15 weeks which would test cells directly, with preliminary results available in 3-4 days (FISH). She is aware of the change in risk with termination dependent upon gestational age and does not wish to wait until confirmation of diagnosis 16 weeks for this procedure. She and her partner are in agreement that they do not want to impact their family by continuing a with a significant genetic abnormality and would like to move forward with termination. I offered the [place] information on informed consent for termination, which they declined. They are residents of [place] and aware of resources available to them for termination. Supervision of high-risk , first trimester Referring Provider: Jack Milian [phone] [x] or Medicare Insurance [x] Dating Criteria: US 11/12/23 with BI 07/06/24 [x] Labs: Rh [A-], Ab [negative], Rubella [immune], HIV [non-reactive], HepBSAg [non-reactive], RPR [non-reactive], Hep C [non-reactive], Varicella [not done], GC/CT [negative/negative] [x] Aneuploidy: NIPT positive for Trisomy 21 [] Carrier Screening: [x] CBC/Hgb: 14.9/42.6/plt 314 [x] UCx: 11/05/23: negative [x] Pap: 11/05/23: NILM [] Flu Shot (Jan-Apr): [] COVID [] LD ASA (if indicated) [x] EPDS [3 ] Thank you for the opportunity to be involved in the care of your patient. Should you have any further questions or concerns, please do not hesitate to call us. Summary of visit: - Patient plans to seek termination. Understands the significant risk of loss and that this may happen prior to termination. - OB/ER warnings reviewed A total of 65 minutes were spent for this visit, 40 minutes were spent with the patient during the visit and 25 minutes were spent in documentation. Jesi Martinez MD [employer] Machine Operator Division of Maternal- Medicine Progress Notes - Abstract - 12/23/2023 - GA:12w0d 12/23/2023 - 12w0d - Elizabeth Gaspar RMA Current OB records are under media tab. 04/27/16 and 01/14/23 op notes are in [place]. PCP records are also in [place]. Most recent visit was 12/09/23. Last Filed Vital Signs Vital Sign Reading Time Taken Comments Blood Pressure 112/62 12/30/2023 1:11 PM CDT Pulse 74 12/30/2023 1:11 PM CDT Temperature 36.6 C (97.8 F) 12/30/2023 1:11 PM CDT Respiratory Rate 16 12/30/2023 1:11 PM CDT Oxygen Saturation 100% 12/30/2023 1:11 PM CDT Inhaled Oxygen Concentration - - Weight 72.6 kg (160 lb) 12/30/2023 1:11 PM CDT Height 172.7 cm (5' 8 ) 12/30/2023 1:11 PM CDT Body Mass Index 24.33 12/30/2023 1:11 PM CDT Plan of Treatment Health Maintenance Due Date Last Done Comments Influenza Vaccine (#1) 2024 2, 01/18/2021, 01/18/2021, Additional history exists Depression Screening 12/08/2024 12/09/2023, 08/18/2023, 06/06/2023, Additional history exists Regular Well Visit/Exam 18-64 12/08/2024 12/09/2023, 02/27/2022, 02/21/2021 Cervical Cancer Screening 03/04/2027 03/04/2022 DTaP/Tdap/Td Vaccine (4 - Td or Tdap) 12/19/2032 12/19/2022, 03/22/2016, 1990 Hepatitis C Screening Completed 11/05/2023, 022 Hepatitis B Screening Completed 12/11/2023 HPV Vaccines Aged Out No longer eligi ble based on patient's age to complete this topic Pneumococcal vaccine <65 Aged Out No longer eligible based on patient's age to complete this topic Varicella Vaccines Discontinued Medical Devices Implanted Type Area Hospitality Recruiter Device Identifier Shelf Expiration Date Model / Serial / Lot [employer] [id number] Juggerknot Maxbraid 2.9mm 2 Loaded Soft Cutting Needle - [id number] - [id number] Implanted:Qty : 2 on 12/03/2018 by Portillo Hernández MD at [facility] Other - see comments Left: Femur [employer] [id number] 07/06/2023 [id number] / [id number] / [id number] Description:Juggerknot Soft Anchors [facility] [id number] Pediloc 4 Hole Lock Femur Proximal Distal 90d 6mm Offset Plate - S0 - [id number] Implanted:Qty : 1 on 12/03/2018 by Portillo Hernández MD at [facility] Plate Left: Femur [facility] 05/11/2035130 4 / 0 / 0 Description:Not found in cat alog search Synthes 214.854 4.5mm 8mm 54mm Self Tap Large Hexagonal Socket Cortex Screw Bone - S0 - [id number] Implanted:Qty : 1 on 12/03/2018 by Portillo Hernández MD at [facility] Screw Left: Femur Synthes I 05/11/2035 214.854 / 0 / 0 [facility] Jason [id number] 4.5mm 55mm Self Tap Hexalobe Cortical T20 Screw Bone Nonsterile - S0 - [id number] Implanted:Qty : 1 on 12/03/2018 by Portillo Hernández MD at [facility] Screw Left: Femur [facility] Jason 05/11/2035 5 / 0 / 0 [facility] Jason [id number] Pediloc 4.5mm 42mm Self Tap Lock T20 Winding Machine Operator Femur Cortical - S0 - [id number] Implanted:Qty : 1 on 12/03/2018 by Portillo Hernández MD at [facility] Screw Left: Femur [facility] Jason 05/11/2035 2 / 0 / 0 [facility] Jason Pediloc 4.5mm 32mm T[address] Self Tapping Long Bone - S0 - [id number] Implanted:Qty : 1 on 12/03/2018 by Portillo Hernández MD at [facility] Screw Left: Femur [facility] Jason 05/11/2035 2 / 0 / 0 [facility] Jason [id number] Pediloc 4.5mm 28mm T20 Hexalobe Cannulated Self Tapping Long Bone - S0 - [id number] Implanted:Qty : 1 on 12/03/2018 by Portillo Hernández MD at [facility] Screw Left: Femur [facility] Jason 05/11/2035452 8 / 0 / 0 [facility] Jason [id number] Pediloc 4.5mm 55mm T20 Hexalobe Locking Cortical Screw Bone - S0 - [id number] Implanted:Qty : 1 on 12/03/2018 by Portillo Hernández MD at [facility] Screw Left: Femur [facility] Jason 05/11/2035465 5 / 0 / [facility] Jason [id number] Pediloc 4.5mm 48mm Lock T20 Winding Machine Operator Femur Cortical Distal Hexalobe - S0 - [id number] Implanted:Qty : 1 on 12/03/2018 by Portillo Hernández MD at [facility] Screw Left: Femur [facility] Jason 05/11/2035464 8 / 0 / 0 [facility] Jason [id number] Pediloc 4.5mm 32mm T20 Hexalobe Cannulated Locking Long Bone - S0 - [id number] Implanted:Qty : 1 on 12/03/2018 by Portillo Hernández MD at [facility] Screw Left: Femur [facility] 05/11/203546 2 / 0 / 0 [facility] Pediloc [id number] 4 Hole Lock Cannulated Blade 90d 6mm Offset - [id number] Implanted:Qty : 1 on 07/19/2019 by Portillo Hernández MD at [facility] Left: Femur [facility] Jason 450 3 / / [facility]s Jason 4.5mm 65mm Self Tap Hexalobe Femur Cortical Distal T20 Screw Bone - [id number] Implanted:Qty : 1 on 07/19/2019 by Portillo Hernández MD at [facility] Left: Femur [facility] Jason 456 5 / / [facility] Jason [id number] 4.5mm 40mm Self Tap Hexalobe Cortical T20 Screw Bone Nonsterile - [id number] Implanted:Qty : 1 on 07/19/2019 by Portillo Hernández MD at [facility] Left: Femur [facility] Jason 454 0 / / [facility] Jason Pediloc 4.5mm 34mm T[address] Self Tapping Long Bone - [id number] Implanted:Qty : 2 on 07/19/2019 by Portillo Hernández MD at [facility] Left: Femur [facility] Jason 453 4 / / [facility] Jason [id number] Pediloc 4.5mm 30mm T20 Hexalobe Cannulated Self Tapping Long Bone - [id number] Implanted:Qty : 1 on 07/19/2019 by Portillo Hernández MD at [facility] Left: Femur [facility] Jason 0 / / Explanted Type Area Hospitality Recruiter Device Identifier Shelf Expiration Date Model / Serial / Lot [facility] Jason 4.5mm 60mm Self Tap Hexalobe Femur Cortical T20 Screw Bone - [id number] Explanted:Qty: 1 on 07/19/2019 at [facility] Left: Femur [facility] Jason 60 / / [facility] Jason Pediloc 4.5mm 20mm T20 Hexalobe Self Tapping Locking Femur - [id number] Explanted:Qty: 1 on 07/19/2019 at [facility] Left: Femur [facility] Jason 20 / / [facility] Jason Pediloc 4.5mm 34mm T[address] Self Tapping Long Bone - [id number] Explanted:Qty: 1 on 07/19/2019 at [facility] Left: Femur [facility] Jason 34 / / 5 Whole Plate Explanted:Qty: 1 on 04/19/2020 by Portillo Hernández MD at [facility] Left: Hip Other Screw Explanted:Qty: 5 on 04/19/2020 by Portillo Hernández MD at [facility] Left: Hip Other Procedures Procedure Name Priority Date/Time Associated Diagnosis Comments HEPATITIS C ANTIBODY Routine 11/05/2023 PAP SMEAR WITH HPV Routine 03/04/2022 from Last 3 Months or Most Recently Relevant to Health Maintenance Results * Hepatitis C antibody Blood (11/05/2023) SCRIBED HCV ab negative Blood Jack Milian MD LAB MICROBIOLOGY - GEN ERAL ORDERABLES Final Result * PAP SMEAR WITH HPV (03/04/2022) Amanda Hanna MD HEALTH MAINTENANCE Final Result from Last 3 Months or Most Recently Relevant to Health Maintenance Insurance [facility] MEDICAID [facility] [place] [address] [facility] [place] [address] Advance Directives For more information, please contact: [phone] * Full Code (Latest Code Status on File) Date Activated Date Inactivated Comments 01/14/2023 1:57 AM 01/15/2023 9:27 PM * Full Code Date Activated Date Inactivated Comments 01/14/2023 12:09 AM 01/14/2023 1:57 AM Full CPR in c ase of cardiopulmonary arrest * Full Code Date Activated Date Inactivated Comments 01/13/2023 10:57 PM 01/14/2023 12:09 AM Full CPR in case of cardiopulmonary arrest * Full Code Date Activated Date Inactivated Comments 04/19/2020 9:50 AM 04/19/2020 2:38 PM Care Teams Manager Technical Services Relationship Specialty Start Date End Date Carmen Kee MD [address] [place] [address] DR WARE [address] [place] [id number] PCP - General Family Medicine 10/16/23 Portillo Hernández MD Surgeon Orthopedic Surgery 05/17/20 Jack Milian MD Consulting Physician Obstetrics and Gynecology 05/17/20 Carmen Kee MD NPI: [id number] [place] [address] DR JEANIE [address] [place] [id number] Consulting Physician Family Medicine 03/01/22
--- OUTSIDE RECORDS SUMMARY | 2024-07-07 08:59 | XMS_ITS | Referral Summary ---
Author Organization [facility] Address [address] [place] [address] Care Team Providers Care Stoker Erector Name Role Phone Portillo Hernández MD Unavailable Jack Milian MD Unavailable [phone] Carmen Kee MD Unavailable Carmen Kee MD Primary Care Provide r Allergies Active Allergy Reactions Criticality Noted Date Comments Cephalexin Rash Medium 10/05/2013 Latex Swelling Medium Localized swelling Nickel Rash Medium 06/21/2019 Sulfamethoxazole-Trimethoprim Rash Medium Medications multivit 62-frxj-kadnto 6-dha 29 mg iron-1 mg -300 mg [...] move forward with termination. I offered the [place] information on informed consent for termination, which they declined. They are residents of [place] and aware of resources available to [...] move forward with termination. I offered the [place] information on informed consent for termination, which they declined. They are residents of [place] and aware of resources available to them for termination. Rh negative state in antepartum period Maternal care for suspected chromosomal abnormality in fetus, fetus 1 12/23/2023 Supervision of high-risk , first betzy atkins 12/23/2023 Overview (12/30/2023): [] Co-management vs. [] Full MFM Care; [] Red Team [] Blue Team Referring Provider: Jack Milian [phone] [x] or Medicare Insurance [x] Dating Criteria: [...] [] MOC: [] Method of feeding: [] It Applications Analyst: [] PP Depression Discussed: Assessment & Plan (12/31/2023 12:05 PM CDT): Referring Provider: Jack Milian [phone] [x] or Medicare Insurance [x] Dating Criteria: [...] 06/06/2023 Assessment & Plan (06/06/2023 9:49 AM DAIRY QUALITY ASSURANCE OFFICER): Hair loss usually resolves within 15 months , but the scalp hair may never be as dense as it was prior to . Referred to dermatology for further evaluation and management. Labs ordered, will follow. Arthralgia of multiple sites 06/06/2023 Assessment & Plan (06/06/2023 9:50 AM DAIRY QUALITY ASSURANCE OFFICER): Baseline labs ordered for autoimmune disorders. Will [...] 02/21/2021 Assessment & Plan (05/19/2020 6:31 PM DAIRY QUALITY ASSURANCE OFFICER): Trial of oral steroids. Encouraged patient to f/u with her dentist. Otalgia, left 05/19/2020 02/21/2021 Retained orthopedic hardware 04/03/2020 12/30/2023 Overview (04/03/2020): Added automatically from request for surgery [id number] Femoroacetabular impingement of left hip 11/24/2017 05/17/2020 Overview (11/24/2017): Added automatically from request for surgery [id number] Tear of left acetabular labrum 11/24/2017 05/17/2020 Overview (11/24/2017): Added automatically from request for surgery [id number] Left hip pain 11/24/2017 05/17/2020 Overview (11/24/2017): Added automatically from request for surgery [id number] Hip injury, left, sequela 06/03/2017 Trochanteric bursitis, left hip 04/25/2017 05/17/2020 Hip abductor tendinitis, left 04/25/2017 05/17/2020 Immunizations Immunization Administration Dates Next Due DTP 1990 HiB 1990 Influenza, Quadrivalent, Spl it, Preservative Free, Intramuscular 02/27/2022,01/18/2021,01/25/2020 Influenza, Unspecified 06/05/2023(Deferr ed: Patient Refused),06/06/2022(Deferred: Patient Refused),01/18/2021,02/09/2019 OPV 1990 Rho (D) Immune Globulin 04/28/2016 Tdap 12/19/2022,03/22/2016 Social History Tobacco Use Types Packs/Day Years Used Date Smoking Tobacco: Former Cigarettes 0.5 10.3 2 - 09/2017 Smokeless Tobacco: Never Tobacco Cessation:Counseling [...] week 01/14/2023 How often do you attend chur ch or jew services? Never 01/14/2023 Do you belong to any clubs o r organizations such as faith groups, unions, fraternal or athletic groups, or [...] staff should administer the PHQ-9) 0 12/09/2023 [facility] of Occupat ional Health - Occupational Stress [...] place to sleep or slept in a alf (including now)? 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 Not on file Not on file Not on file Last Filed Vital Signs Vital Sign Reading [...] 12/30/2023 1:11 PM CDT Plan of Treatment Not on file Medical Devices Implanted Type Area Restaurant Host/Hostess Device Identifier Shelf Expiration Date Model / Serial / Lot [employer] [id number] Juggerknot Maxbraid 2.9mm 2 Loaded Soft Cutting Needle - [id number] - [id number] Implanted:Qty : 2 on 12/03/2018 by Portillo Hernández MD at [facility] Other - see comments Left: Femur [employer] [id number] 07/06/2023 [id number] / [id number] / [id number] Description:Juggerknot Soft Anchors [facility] [id number] Pediloc 4 Hole Lock Femur Proximal Distal 90d 6mm Offset Plate - S0 - [id number] Implanted:Qty : 1 on 12/03/2018 by Portillo Hernández MD at [facility] Plate Left: Femur [facility] 05/11/2035130 4 / 0 / 0 Description:Not found in cat alog search Synthes 214.854 4.5mm 8mm 54mm Self Tap Large Hexagonal Socket Cortex Screw Bone - S0 - [id number] Implanted:Qty : 1 on 12/03/2018 by Portillo Hernández MD at [facility] Screw Left: Femur Synthes I 05/11/2035 214.854 / 0 / 0 [facility] Jason [id number] 4.5mm 55mm Self Tap Hexalobe Cortical T20 Screw Bone Nonsterile - S0 - [id number] Implanted:Qty : 1 on 12/03/2018 by Portillo Hernández MD at [facility] Screw Left: Femur [facility] Jason 05/11/2035-455 5 / 0 / 0 [facility] Jason [id number] Pediloc 4.5mm 42mm Self Tap Lock T20 Black Top Paver Operator Femur Cortical - S0 - [id number] Implanted:Qty : 1 on 12/03/2018 by Portillo Hernández MD at [facility] Screw Left: Femur [facility] Jason 05/11/2035-454 2 / 0 / 0 [facility] Jason [id number] Pediloc 4.5mm 32mm T[address] Self Tapping Long Bone - S0 - [id number] Implanted:Qty : 1 on 12/03/2018 by Portillo Hernández MD at [facility] Screw Left: Femur [facility] Jason 05/11/2035-453 2 / 0 / 0 [facility] Jason [id number] Pediloc 4.5mm 28mm T20 Hexalobe Cannulated Self Tapping Long Bone - S0 - [id number] Implanted:Qty : 1 on 12/03/2018 by Portillo Hernández MD at [facility] Screw Left: Femur [facility] Jason 05/11/203545 8 / 0 / 0 [facility] Jason Pediloc 4.5mm 55mm T20 Hexalobe Locking Cortical Screw Bone - S0 - [id number] Implanted:Qty : 1 on 12/03/2018 by Portillo Hernández MD at [facility] Screw Left: Femur [facility] 05/11/2035465 5 / 0 / [facility] Jason [id number] Pediloc 4.5mm 48mm Lock T20 Black Top Paver Operator Femur Cortical Distal Hexalobe - S0 - [id number] Implanted:Qty : 1 on 12/03/2018 by Portillo Hernández MD at [facility] Screw Left: Femur [facility] 05/11/203546 8 / 0 / 0 [facility] Jason [id number] Pediloc 4.5mm 32mm T20 Hexalobe Cannulated Locking Long Bone - S0 - [id number] Implanted:Qty : 1 on 12/03/2018 by Portillo Hernández MD at [facility] Screw Left: Femur [facility] 05/11/203546 2 / 0 / 0 [facility] Jason [id number] Pediloc [id number] 4 Hole Lock Cannulated Blade 90d 6mm Offset - [id number] Implanted:Qty : 1 on 07/19/2019 by Portillo Hernández MD at [facility] Left: Femur [facility] Jason 450 3 / / [facility] Jason 4.5mm 65mm Self Tap Hexalobe Femur Cortical Distal T20 Screw Bone - [id number] Implanted:Qty : 1 on 07/19/2019 by Portillo Hernández MD at [facility] Left: Femur [facility] Jason 5 / / [facility] Jason 4.5mm 40mm Self Tap Hexalobe Cortical T20 Screw Bone Nonsterile - [id number] Implanted:Qty : 1 on 07/19/2019 by Portillo Hernández MD at [facility] Left: Femur [facility] Jason 0 / / [facility] Jason Pediloc 4.5mm 34mm T[address] Self Tapping Long Bone - [id number] Implanted:Qty : 2 on 07/19/2019 by Portillo Hernández MD at [facility] Left: Femur [facility] Jason 4 / / [facility] Jason Pediloc 4.5mm 30mm T20 Hexalobe Cannulated Self Tapping Long Bone - [id number] Implanted:Qty : 1 on 07/19/2019 by Portillo Hernández MD at [facility] Left: Femur [facility] Jason 0 / / Explanted Type Area Restaurant Host/Hostess Device Identifier Shelf Expiration Date Model / Serial / Lot [facility] Jason 4.5mm 60mm Self Tap Hexalobe Femur Cortical T20 Screw Bone - [id number] Explanted:Qty: 1 on 07/19/2019 at [facility] Left: Femur [facility] Jason 60 / / [facility] Jason Pediloc 4.5mm 20mm T20 Hexalobe Self Tapping Locking Femur - [id number] Explanted:Qty: 1 on 07/19/2019 at [facility] Left: Femur [facility] Jason 20 / / [facility] Jason Pediloc 4.5mm 34mm T[address] Self Tapping Long Bone - [id number] Explanted:Qty: 1 on 07/19/2019 at [facility] Left: Femur [facility] Jason [id number] / / 5 Whole Plate Explanted:Qty: 1 on 04/19/2020 by Portillo Hernández MD at [facility] Left: Hip Other Screw Explanted:Qty: 5 on 04/19/2020 by Portillo Hernández MD at [facility] Left: Hip Other Procedures Procedure Name Priority Date/Time Associated Diagnosis Comments HEPATITIS C ANTIBODY Routine 11/05/2023 HM PAP SMEAR WITH HPV Routine 03/04/2022 from Last 3 Months or Most Recently Relevant to Health Maintenance Results * Hepatitis C antibody Blood (11/05/2023) SCRIBED HCV ab negative Blood Jack Milian MD LAB MICROBIOLOGY - GEN ERAL ORDERABLES Final Result * PAP SMEAR WITH HPV (03/04/2022) Historical Provider HEALTH MAINTENANCE Final Result from Last 3 Months or Most Recently Relevant to Health Maintenance Insurance [facility] [employer] BETTER TH [place] [facility] CHOICE PLUS [facility] HMO/PPO Address: [address] [place] [id number] [place] [address] [facility] CHOICE PLUS [facility] HMO/PPO Address: [address] [place] [address] Advance Directives For more information, please contact: [phone] * Full Code (Latest Code Status on [...] 9:50 AM 04/19/2020 2:38 PM Care Teams Stoker Erector Relationship Specialty Start Date End Date Carmen Kee MD [address] [place] [address] PCP - General Family Medicine 10/16/23 Portillo Hernández MD Surgeon Orthopedic Surgery 05/17/20 Jack Milian MD Consulting Physician Obstetrics and Gynecology 05/17/20 Carmen Kee MD [address] [place] [address] [address] [place] [id number] Consulting Physician Family Medicine 03/01/22
--- OUTSIDE RECORDS SUMMARY | 2024-07-07 09:02 | XMS_ITS | Continuity of Care Document ---
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 Name Role Phone [facility] Unavailable Unavailable Problems Combined list of problems [...] Condition DoD ankle joint pain Active Condition [facility] joint pain, localized Inactive Condition [facility] upper respiratory infection Inactive Condition [facility] dehydration (Na, H2O) Inactive Condition [facility] pharyngitis Inactive Condition [facility] refractive error Active Condition [facility] visit for: services physical Active Condition [facility] visit for: screening exam pulmonary tuberculosis Active Condition DoD Allergies, Adverse Reactions, Alerts Combined list of allergies from Department [facility] and [facility] facilities. It does not include entries that were removed or entered in error. Substance Category Reaction Severity Reaction type Status Date Reported Comments Source BACTRIM (SULFAMETHO XAZOLE/TRIM ETHOPRIM) Drug allergy (disorder) Rash active 4 [place] cephalexin Propensity to adverse reactions to substance Rash Active 4 Unknown Organizat ion KEFLEX (CEPHALEXIN ) Drug allergy (disorder) Rash active 4 [place] OTHER {Cla } Drug allergy (disorder) Rash, Other: LATEX active 4 [place] OTHER {Cla } Propensity to adverse reactions to substance Rash Active 4 System Message: Unknown Other - Missing Comment for unique id [id number] 11/20/2021 6:55:09 AM Unknown Organizat ion sulfamethox azole-trime thoprim Propensity to adverse reactions to substance Rash Active 4 Unknown Organizat ion Immunizations Combined list of available immunizations from the Department of [facility] and Veterans Affairs facilities. Immunization Series Date Given Administered By Site Reaction Lot Number CVX Code Drug C Java Developer Status Comments Source influenza, injectable, quadrivalent- pf 2020 [id number] Seqirus complet ed influenza , injectabl e, quadrival ent-pf 01/18/21 Given Ambulat ory Pharmac y influenza, injectable, quadrivalent 2018 [id number] Seqirus complet ed influenza , injectabl e, quadrival ent 01/16/19 Given Ambulat ory Pharmac y influenza virus vaccine, unspecified 2016 [id number] GlaxoSmithKli ne complet ed influenza virus vaccine, unspecifi ed 02/17/17 Given Ambulat ory Pharmac y influenza, seasonal, injectable-pf 2015 [id number] Seqirus complet ed influenza , seasonal, injectabl e-pf 01/19/16 Given Ambulat ory Pharmac y influenza, injectable, quadrivalent- pf 2014 [id number] GlaxoSmithKli ne complet ed influenza , injectabl e, quadrival ent-pf 02/11/15 Given Ambulat ory Pharmac y influenza, injectable, quadrivalent- pf 2014 [id number] 150 sanofi pasteur complet ed influenza , injectabl e, quadrival ent-pf 07/13/14 Given Ambulat ory Pharmac y hepatitis A-hepatitis B vaccine 2013 [id number] GlaxoSmithKli ne complet ed hepatitis A-hepatit is B vaccine 10/06/13 Given Ambulat ory Pharmac y adenovirus vaccine, live 2013 [id number] 143 Teva Pharmaceutica complet ed adenoviru s vaccine, live 10/06/13 Given Ambulat ory Pharmac y influenza, seasonal, injectable-pf 2013 [id number] 140 sanofi pasteur complet ed influenza , seasonal, injectabl e-pf 10/06/13 Given Ambulat ory Pharmac y hepatitis A and hepatitis B vaccine 3 2013 [id number] Phenex Pharmaceuticals (SKB) complet ed hepatitis A and hepatitis B vaccine DoD Influenza, seasonal, injectable, preservative free 1 2013 [id number] Sanofi Pasteur (PMC) complet ed Influenza , seasonal, injectabl e, preservat sergio free DoD Adenovirus, type 4 and type 7, live, oral 1 2013 [id number] 143 [facility] (BRR) complet ed Adenoviru s, type [...] vaccine DoD Novel influenza-H1N 1-09, injectable 2009 [id number] 127 MediSymwaveune Inc complet ed Novel influenza -R8T1-57, injectabl e 07/08/09 Given Ambulat ory Pharmac y tetanus, diphtheria, acellular pertu is 2009 [id number] 115 GlaxoSmithKli ne complet ed tetanus, diphtheri a, acellular pertussis 07/08/09 Given Ambulat ory Pharmac y meningococcal A,C,Y,W-135 (MCV4P) 2009 [id number] 114 sanofi pasteur complet ed meningoco ccal A,C,Y,W-1 35 (MCV4P) 07/08/09 Given Ambulat ory Pharmac y influenza virus vaccine, live 2009 [id number] 111 Medimmune Inc comple t ed influenza [...] live, attenuated, for intranasal use 1 2009 [id number] 111 MedImmune, Inc. (MED) complet ed influenza virus vaccine, live, attenuate d, for intranasa l use DoD meningococcal polysaccharid e (groups A, C, Y and W-135) diphtheria toxoid conjugate vaccine (MCV4P) 1 2009 [id number] 114 Sanofi Pasteur (PMC) complet ed meningoco ccal polysacch aride (groups A, C, Y and W-135) diphtheri a toxoid conjugate vaccine (MCV4P) DoD tetanus toxoid, reduced diphtheria toxoid, and acellular pertu is vaccine, adsorbed 1 2009 [id number] [facility] Phenex Pharmaceuticals (SKB) complet ed tetanus toxoid, reduced diphtheri a toxoid, and acellular pertussis vaccine, adsorbed DoD Novel influenza-H1N 1-09, injectable 1 2009 [id number] 127 MedImmArchetypes, Inc. (MED) complet ed Novel influenza -L2S8-38, injectabl e DoD Encounters Combined list of: 1) Encounters from Department of Veterans Affairs facilities going backup to the last 18 months, not all VA inpatient encounters are included; 2) Encounters from the Department of Defense facilities going backup to 280 months. Location Location Details Encounter Type Encounter Number Reason For Visit Attending Provider ADM Date DC Date Status Disposition Source [facility](PES Optometry -Trainee) OUTPATIENT [id number] GAL DIAL 07/06 Released w/o Limitations [facility](P ES Optomet ry-Nick nee) [facility](DEEDEE C Post Immunizat ion) OUTPATIENT [id number] IET PPD RUBIA SEPULVEDA 07/06 Released w/o Limitations [facility](M [facility] Post Immuniz ation) [facility] Ambulator y) OUTPATIENT [id number] TARI MANTILLA 07/22 Sick at Home/Quarter s [facility](T [facility] Ambulat ory) [facility] Ambulator y) OUTPATIENT [id number] KAIDEN MONTGOMERY *EVER* 07/23 Released w/o Limitations [facility](T MC Ambulat ory) [facility] [place] [facility]) OUTPATIENT [id number] toe and low back pain AMBER WORTHINGTON 08/04 Released with Work/Duty Limitations [facility](F bela Michael [employer] [place] [facility]) [facility] [place] [employer] [place] [facility]) OUTPATIENT [id number] Ankle Pain SILVER SINGH 08/14 Immediate Referral Medical Group(F bela 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 Physical Therapy) OUTPATIENT [id number] L Ankle (AT) - Initial Visit AMY CORONA 08/14 Released with Work/Duty Limitations [facility] Physica l Therapy ) [facility] Ambulator y) OUTPATIENT [id number] ROCIO CAMILO 08/23 Released with Work/Duty Limitations [facility] Ambulat ory) [facility] Physical Therapy) OUTPATIENT [id number] L Shoulde r - Initial Visit AMY CORONA 08/24 Released with Work/Duty Limitations [facility]( MC Physica l Therapy ) RONALDO Gregorio(Hearin g Conservat ion) OUTPATIENT [id number] Notes Entered by: Glenna TONEY 29 Sep 2013 0954 ------- ------- ------- ------- -- [address] JANEL TONEY 09/29 Released w/o Limitations [facility] [place](Hear [place] Conserv [place]ion) RONALDO Gregorio(OST Optometry ) OUTPATIENT [id number] Notes Entered by: CARLOS MANUEL GONZALES 29 Sep 2013 1536 ------- ------- ------- ------- -- OST IET EMEETRIO MADRID 09/29 Released w/o Limitations [facility] [place](OST Optomet ry) RONALDO Gregorio(OST Clinic) OUTPATIENT [id number] Notes Entered by: Anibal QUACH 07 Oct 2013 0817 ------- ------- ------- ------- -- SYED JACKMAN 10/07 Released w/o Limitations [facility] [place]) [facility] [place]) OUTPATIENT [id number] Notes Entered by: JESS CANAS CH 12 Oct 2013 0841 ------- ------- ------- ------- -- F/-40 Foot Eval ROSSANA BAUTISTA 10/12 Released with Work/Duty Limitations [facility] [place] [facility] [place] OUTPATIENT [id number] Notes Entered by: JESS CANAS CH 14 Oct 2013 1223 ------- ------- ------- ------- -- F/-40 Foot F/U ROSSANA BAUTISTA 10/14 Released with Work/Duty Limitations [facility] [place] [facility] [place] OUTPATIENT [id number] Notes Entered by: JESS CANAS CH 18 Oct 2013 0957 ------- ------- ------- ------- -- F/1-40 Foot F/U ROSSANA BAUTISTA 10/18 Released w/o Limitations [facility] [place] [facility] [place](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 2 Clinic) [place]Emerge ncy Room) OUTPATIENT [id number] GAL LUIS 06/07 [place]ased [place]/o Limitations [place]) OUTPATIENT [id number] BARB MORALES 07/16 Released [place]/o Limitations [place]) OUTPATIENT [id number] S/FREQU ENT URINATI ON/PAIN WHILE URINATI RAMESH SIN 08/01 Released w/o Limitations [place]([address]) [place]) OUTPATIENT [id number] PT ST Elen/RUBIA DOHERTY 08/16 Released w/o Limitations [place]([address]) TELE CONSULT [id number] Notes Entered by: JAMES WHITE 10 Oct 2014 0948 ------- ------- ------- ------- -- PT STATED NEED LAB WORK AND ULTRA SOUND RESULTS ADAN BENJAMIN 10/10 [place]([address]) [place] [facility] OUTPATIENT [id number] Follow up for labs and ultraso und RUBIA GERARD 10/24 Released w/o Limitations [place]([address]) [place] [facility]) OUTPATIENT [id number] s/ fu meds RUBIA Hamlin 12/19 [place]ased w/o Limitations [place]([address]) [place] [facility]) OUTPATIENT [id number] f/u for meds eval RUBIA GERARD ENOCH 01/19 Released w/o Limitations [place] M[facility]D [facility] [place]) OUTPATIENT [id number] SELF/ST ATES F/UP FOR OVARY CONCERN RUBIA GERARD ENOCH 03/15 Released w/o Limitations [place]) Procedures Combined list of: 1) Procedures from Department of [facility] Affairs facilities going back up to thelast 18 months, not all VA non-surgical procedures are included; 2) All procedures from the Department of Defense facilities. Procedure Procedure Type Code Date Perfomer Comments Sourc e No data available for this section Amb[facility] ry Pharmacy ATHLETIC TRAINING RE-EVALUATION 10/19/19 14 [facility] FOOT PRESSURE OFF LOADING/SUPPORTIVE DEVICE, ANY TYPE, EACH 10/15/19 14 [facility] UNLISTED PROCEDURE, CASTING OR STRAPPING 10/13/19 14 [facility] HEPATITIS A AND HEPATITIS B VACCINE (HEPA-HEPB), ADULT DOSAGE, FOR INTRAMUSCULAR USE 10/08/19 14 [facility] FITTING OF SPECTACLES, EXCEPT FOR APHAKIA; MONOFOCAL 09/30/19 14 [facility] PATIENT EDUCATION, NOT OTHERWISE CLASSIFIED, NON-PHYSICIAN PROVIDER, GROUP, PER SESSION 09/30/19 14 [facility] THERAPEUTIC PROCEDURE,1 OR MORE AREAS,EACH 15 MINUTES;NEUROMUSCU LAR REEDUCATION OF MOVEMENT,BALANCE,C OORDINATION,KINEST HETIC SENSE,POSTURE,AND/ OR PROPRIOCEPTION FOR SITTING AND/OR STANDING ACTIVITIES 08/25/19 10 [facility] ANKLE ORTHOSIS, ANKLE GAUNTLET OR SIMILAR, WITH OR WITHOUT JOINTS, PREFABRICATED, [id number] 08/15/19 10 [facility] ATHLETIC TRAINING EVALUATION 08/15/19 10 [facility] EDUCATION &TRAINING, PATIENT SELF-MGT QUALIFIED, NONPHYSICIAN HEALTH AMMONIA DISTILLER USING STDIZED CURRICULUM, OEUV-IA-SUMC W THE PATIENT (COULD INCL CAREGIVER/FAMILY) EA 30 MIN; INDIVIDUAL PATIENT 08/05/19 10 [facility] INFUSION, NORMAL SALINE SOLUTION , 1000 CC 07/23/19 10 [facility] SKIN TEST; TUBERCULOSIS, INTRADERMAL 07/06/19 10 [facility] FITTING OF SPECTACLES, EXCEPT FOR APHAKIA; MONOFOCAL 07/06/19 10 [facility] EAR MOLD/INSERT, NOT DISPOSABLE, ANY TYPE 07/06/19 10 [facility] Athletic Training Re-evaluation Athletic Training Re-evaluation 84809 10/19/19 14 ROSSANA BAUTISTA [facility] Foot pre ure off loading/supportive device, any type, each 10/15/19 14 ROSSANA BAUTISTA Athletic Training Re-evaluation Athletic Training Re-evaluation 83815 10/15/19 14 ROSSANA BAUTISTA Orthopedic Strapping Orthopedic Strapping 12202 10/13/19 14 ROSSANA BAUTISTA Arch Taping [facility] Athletic Training Evaluation Athletic Training Evaluation 04593 10/13/19 14 ROSSANA BAUTISTA [facility] Vaccines Adenovirus Type 4 Live, For Oral Use Vaccines Adenovirus Type 4 Live, For Oral Use 44770 10/11/19 14 FLORSYED CAGLE [facility] Vaccines Adenovirus Type 7 Live, For Oral Use Vaccines Adenovirus Type 7 Live, For Oral Use 10119 10/11/19 14 LFOR SYED A [facility] Influenza Split Virus Vaccine 0.5mL Dosage Intramuscular Preservative Free 10/11/19 14 [facility] SYED Eddie [facility] Hepatitis A And Hepatitis B (Intramuscular Use) Adult Dosage Hepatitis A And Hepatitis B (Intramuscular Use) Adult Dosage 71951 10/11/19 14 [facility] SYED A [facility] Immunization Admin By Intranasal / Oral Route One Vaccine Immunization Admin By Intranasal / Oral Route One Vaccine 32058 10/11/19 14 [facility] SYED A [facility] Immunization Admin Intranasal / Oral Each Additional Vaccine Immunization Admin Intranasal / Oral Each Additional Vaccine 29146 10/11/19 14 [facility] SYED A [facility] Immunization Administration By Injection, Each Additional Vaccine Immunization Administration By Injection, Each Additional Vaccine 29078 10/11/19 14 [facility] SYED A [facility] Spectacles Services Fitting Monofocal Except For Aphakia Spectacles Services Fitting Monofocal Except For Aphakia 80943 09/30/19 14 ARIANA GONZALES [facility] Screening Test Of Visual Acuity, Quantitative, Bilateral Screening Test Of Visual Acuity, Quantitative, Bilateral 74730 09/30/19 14 ARIANA GONZALES [facility] Ear Protector Attenuation Measurements Ear Protector Attenuation Measurements 18409 09/30/19 14 JANEL TONEY [facility] Audiometry Group Testing Audiometry Group Testing 34267 09/30/19 14 JANEL TONEY Patient education, not otherwise cla ified, non-physician provider, group, per se ion 09/30/19 14 JANEL TONEY Physical Therapy Neuromuscular Re-education Physical Therapy Neuromuscular Re-education 02120 08/25/19 10 AMY CORONA Patient Counseling Medical Management Individual Patient Patient Counseling Medical Management Individual Patient [id number] 08/25/19 10 AMY CORONA Physical Therapy Service Evaluation Physical Therapy Service Evaluation 94587 08/25/19 10 AMY CORONA Ankle orthosis, ankle gauntlet or similar, with or without joints, prefabricated, [id number] 08/15/19 10 AMY CORONA Patient Counseling Medical Management Individual Patient Patient Counseling Medical Management Individual Patient [id number] 08/15/19 10 AMY CORONA Physical Therapy Service Evaluation Physical Therapy Service Evaluation 59751 08/15/19 10 AMY CORONA Athletic Training Evaluation Athletic Training Evaluation 91504 08/15/19 10 SILVER SINGH [facility] Athletic Training Re-evaluation Athletic Training Re-evaluation 94924 08/08/19 10 AMBER WORTHINGTON Patient Counseling Medical Management Individual Patient Patient Counseling Medical Management Individual Patient [id number] 08/05/19 10 AMBER [place]THINGTON Athletic Training Evaluation Athletic Training Evaluation 29305 08/05/19 10 AMBER [place] Taping Toes Taping Toes 10581 08/05/19 10 AMBER [place]THINGTON hallux MTPJ, on [id number] & [id number] [facility] Physician Supervised Injection Intramuscular Antibiotic Physician Supervised Injection Intramuscular Antibiotic 19472 07/23/19 10 TARI MANTILLA Parenteral Fluids IV Infusion As Concurrent Hydration Parenteral Fluids IV Infusion As Concurrent Hydration 40041 07/23/19 10 TARI MANTILLA Visual Function Screening Visual Function Screening 37587 07/06/19 10 [facility] Spectacles Services Fitting Monofocal Except For Aphakia Spectacles Services Fitting Monofocal Except For Aphakia 05548 07/06/19 10 [facility] Skin Test Anergy Tuberculin Intradermal Skin Test Anergy Tuberculin Intradermal 39490 07/06/19 10 SEPULVEDA, RUBIA Hay DoD Immunization Administration By Injection, One Vaccine Immunization Administration By Injection, One Vaccine 15775 07/06/19 10 SEPULVEDA, RUBIA Whitman Social History Combined list of available smoking, tobacco, and other social history from Department of Defense and Veterans Affairs facilities. Social History Type Response Date Comment Sourc e Sexual Orientation Ambula tory Pharmacy Gender identity Ambulator y Pharmacy Sex Representation Female Unknow n Organization This section is an empty soc ial history section. DoD Assessment and Plan Combined list of future [...] of Defense and Veterans Affairs (VA).VA Functional Beckemeyer Measurement (FIM) Scale: 1 = Total Assistance (Subject = 0% +), 2 = Maximal Assistance (Subject = 25% +), 3 = Moderate Assistance (Subject = 50% +), 4 = Minimal Assistance (Subject = 75% +), 5 = Supervision, 6 = Modified Beckemeyer (Device), 7 = Complete Beckemeyer (Timely, Safely). Assessment Date/Time Source Assessment Type Assessment Skill Assessment Score Assessment Details No data available for this section
--- NOTE | 2024-07-07 09:09 | ED.EAR ---
HPI - Ear Problem General Chief complaint: Ear Stated complaint: Ear Pain Time Seen by Provider: 07/07/24 09:07 Source: patient, RN notes reviewed and old records reviewed Mode of arrival: ambulatory Limitations: no limitations History of Present Illness HPI Narrative: 33 year old female who presents to [facility] care with complaints of right ear pain for the past 2 days, reports it feels like she has fluid in her ear, denies any drainage from her right ear. Patient is 16 weeks nd reports not sure what is safe to take while . Patient reports that she has gargled with cayenne pepper. Patient admits to having some sinus congestion and drainage denies any known fevers chills or sweats. MD Complaint: ear pain Location: right ear Duration: constant Severity: mild Discharge from ear: Reports no Associated symptoms ear: other (right ear pain) Treatment prior to arrival: other (gargled with cayenne pepper) Related Data Home Medications ?Medication ?Instructions ?Recorded ?Confirmed ?Last Taken ?Type norethindrone 1 mg-ethinyl 1 tablet PO DAILY 06/23/21 06/23/21 Unknown History estradiol 20 mcg (21)-iron 75 mg (7) tablet (05/31 (28)) Allergies Allergy/AdvReac Type Severity Reaction Status Date / Time cephalexin (From Keflex) Allergy Rash Verified 06/23/21 14:57 latex Allergy Rash Verified 06/23/21 14:57 sulfamethoxazole (From Allergy Rash Verified 06/23/21 14:57 Bactrim) trimethoprim (From Bactrim) Allergy Rash Verified 06/23/21 14:57 Review of Systems Review of Systems: CONSTITUTIONAL: Denies malaise, chills, sweats, or fever. EYES: Denies visual changes, redness, or discharge. ENT: Reports rhinorrhea, congestion,no sinus pain,right otalgia and no sore throat. CARDIOVASCULAR: Denies chest pain, palpitations, or edema. RESPIRATORY: Reports no cough.? Denies dyspnea. GASTROINTESTINAL: Denies abdominal pain, nausea, vomiting, diarrhea SKIN: Denies rash or itching. MUSCULOSKELETAL: Denies myalgia. NEUROLOGIC: Denies headache. All systems reviewed & are unremarkable except as noted in HPI and below PMFSH Past Medical History Medical History (Updated 07/09/24 @ 15:00 by Abril Alvares NP) Migraine with menses Surgical History Surgical History (Updated 07/09/24 @ 14:56 by Abril Alvares NP) History of hip surgery left osteotomy, revision and hardware removed History of Social History Social History (Updated 07/09/24 @ 14:54 by Abril Alvares NP) Smoking status: Never smoker Alcohol intake: former Alcohol use details: social is 16 weeks Substance use type: does not use Living arrangements: with family Gender identity (if verbalized by the patient): Female Comments At time of signature, agree with nursing past medical, surgical, social and family history. There is no relevant family history pertinent to the presenting complaint Exam Narrative: GENERAL: Well-appearing, well-nourished, and in no acute distress. HEAD: Normocephalic EYES: PERRLA, conjunctivae clear ENT: Nares clear, turbinates edematous and erythematous, clear discharge. Mucous membranes moist. TM pearly gutierrez with dull light reflex bilaterally; Right ear canal red and irritated no acute swelling or any drainage from ear, no tragal tenderness. Oropharynx erythematous without lesions. Tonsils not enlarged and without exudate, no drooling, no hoarseness, no trismus, uvula midline. NECK: Supple. No lymphadenopathy CHEST: Clear to auscultation, breath sounds equal. No wheezing, rhonchi, rales, or stridor. No respiratory distress, speaks in full sentences.no cough noted SAO2 100% on room air HEART: Regular rate and rhythm. No murmur heard. SKIN: Warm, dry, no rash. NEURO: Alert and oriented x3. PSYCH: Normal mood and affect Course Course Emergency Course: Patient is aware of diagnosis, understands and agrees to treatment plan.? Anticipatory guidance given.? Patient agrees to follow-up as directed and is aware of reasons to seek care at the emergency department. Portions of this record may have been created with voice recognition software Level of Care: Express Care Visit Vital Signs Vital signs: Vital Signs Temperature 36.6 C 07/07/24 08:49 Pulse Rate 96 07/07/24 08:49 Respiratory Rate 16 07/07/24 08:49 Blood Pressure 133/58 L 07/07/24 08:49 Pulse Oximetry 100 07/07/24 08:49 Oxygen Delivery Room Air 07/07/24 08:49 Temperature 36.6 C 07/07/24 08:49 Pulse Rate 96 07/07/24 08:49 Respiratory Rate 16 07/07/24 08:49 Blood Pressure 133/58 L 07/07/24 08:49 Pulse Oximetry 100 07/07/24 08:49 Oxygen Delivery Room Air 07/07/24 08:49 Reviewed Medical Decision Making Differential Diagnosis Differential Diagnosis: otitis media, otitis externa, URI, sinus congestion Medical Records Medical records reviewed: Yes I reviewed the external patient's medical records. Vital Signs Vital Signs: Vital Signs Temperature 36.6 C 07/07/24 08:49 Pulse Rate 96 07/07/24 08:49 Respiratory Rate 16 07/07/24 08:49 Blood Pressure 133/58 L 07/07/24 08:49 Pulse Oximetry 100 07/07/24 08:49 Oxygen Delivery Room Air 07/07/24 08:49 Temperature 36.6 C 07/07/24 08:49 Pulse Rate 96 07/07/24 08:49 Respiratory Rate 16 07/07/24 08:49 Blood Pressure 133/58 L 07/07/24 08:49 Pulse Oximetry 100 07/07/24 08:49 Oxygen Delivery Room Air 07/07/24 08:49 reviewed Critical Care Time Critical Care Time Critical Care Time: No Discharge Plan Discharge Clinical Impression: Otitis externa Qualifiers: Otitis externa type: unspecified type Chronicity: acute Laterality: right Qualified Code(s): H60.501 - Unspecified acute noninfective otitis externa, right ear Patient Disposition: Home, Self-Care Condition: Stable Instructions: Swimmer's Ear (GEN) Additional Instructions: Increase fluids especially juices and water Vjth-ter-hllksab cough and cold medicine of your choice for your symptoms check with pharmacist since you are Tylenol for any fever or pain Zyrtec or Claritin daily heat to the face 20-30 minutes 4-6 times a day for pain Salt water gargles, throat lozenges or throat sprays as desired Antibiotic ear drops take as directed List given of medications which are safe to take during If your symptoms persist, change or worsen significantly before you can contact your personal physician then please, without delay, go to the emergency department for further evaluation. Follow-up with PCP in 7-10 days or sooner if needed Follow up with PCP soon in regards to your blood pressure which is elevated above threshold for referral. Blood pressure above 120/80 may indicate pre-hypertension. Mild elevation at 133/58 Patient Language: Israeli Prescriptions: New ofloxacin 0.3 % drops 5 drp RIGHT EAR BID 7 Days Qty: 10 0RF No Action norethindrone-e.estradiol-iron [05/31 (28)] 1 mg-20 mcg (21)/75 mg (7) Tablet 1 tablet PO DAILY amoxicillin 875 mg tablet 875 mg PO Q12H 7 Days Qty: 14 0RF Follow-up/Referrals: PHYSICIAN NOT ON STAFF,NONSTAFF [Primary Care Provider] - Time of Disposition: 09:24 Quality Jw Coma Scale Eyes: Open Verbal: Oriented and Alert Motor: Follows Commands Jw Coma Total Score: 15
== END 2024-07-07 09:31 | disposition home or self-care (01) ==
PROVIDERS: Emergency Provider Registered Nurse
DX: O99.891 Other specified diseases and conditions complicating pregnancy (principal); H60.501 Unspecified acute noninfective otitis externa, right ear; Z3A.16 16 weeks gestation of pregnancy
CPT/HCPCS: 99213; G0463

== ENCOUNTER 2024-10-27 13:26 | Emergency (ER) | payer OTHER, SELFPAY ==
--- NOTE | ~2024-10-27 | XR_ITS ---
XR foot LT min 3V Ordering provider: LISA Galan History: . INVERSION INJURY, PROX LAT PAIN . Comparison: None. FINDINGS: BONES: Undisplaced fracture is seen at the base of the fifth metatarsal bone. No other fractures seen . JOINT SPACES: Normal. No tarsal coalition. SOFT TISSUES: Normal. IMPRESSION: Fracture at the base of the fifth metatarsal bone. Reviewed, dictated and finalized at location A.
[2024-10-27 13:33] VITALS: BP 130/83; PULSE 85; RESP 16; TEMP 36.5; O2SAT 99
--- NOTE | 2024-10-27 13:56 | ED.LOWEXIN ---
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 Just prior to arrival, patient was walking down some stairs inside her home when her foot slipped off 1 step and she fell down 1 step onto her buttocks, twisting her foot. Denies numbness or tingling to the foot or toes. She currently rates her foot pain 1/10 at rest, which increases with significantly with weight-bearing and movement. Patient is currently 32 weeks . She has not notified her OBGYN of the fall prior to arrival. Related Data Home Medications ?Medication ?Instructions ?Recorded ?Confirmed ?Last Taken ?Type 10/27/24 Unknown History Allergies Allergy/AdvReac Type Severity Reaction Status Date / Time cephalexin (From Keflex) Allergy Rash Verified 10/27/24 13:38 latex Allergy Rash Verified 10/27/24 13:38 sulfamethoxazole (From Allergy Rash Verified 10/27/24 13:38 Bactrim) trimethoprim (From Bactrim) Allergy Rash Verified 10/27/24 13:38 Review of Systems Review of Systems: CONSTITUTIONAL: Denies body aches, fever, chills, or sweats. EYES: Denies visual changes, redness, or discharge. ENT: Denies rhinorrhea, congestion, sore throat, or otalgia. CARDIOVASCULAR: Denies chest pain, palpitations, or edema. RESPIRATORY: Denies cough or dyspnea. GASTROINTESTINAL: Denies abdominal pain, nausea, vomiting, or diarrhea. GENITOURINARY: Denies dysuria or hematuria. SKIN: Denies rash, itching, or wounds. MUSCULOSKELETAL: Left foot injury NEUROLOGIC: Denies headache, numbness, tingling, or weakness. PSYCH: Denies depression or anxiety. [facility] Past Medical History Medical History Migraine with menses Surgical History Surgical History History of hip surgery left osteotomy, revision and hardware removed History of Social History Social History Smoking status: Never smoker Alcohol intake: former Alcohol use details: social is 16 weeks Substance use type: does not use Living arrangements: with family Gender identity (if verbalized by the patient): Female Comments At time of signature, I have reviewed and agree with nursing past medical, surgical, social and family history unless otherwise noted. Please see nursing chart for further information. There is no relevant family history pertinent to the presenting complaint Exam Narrative: GENERAL: Well-appearing, well-nourished, and in no acute distress. HEAD: Normocephalic, atraumatic. EYES: EOMI. No redness or drainage. Conjunctivae normal. ENT: Mucous membranes pink and moist. NECK: Normal AROM. CHEST: No respiratory distress. EXTREMITIES: Left foot: Tenderness with localized mild edema and ecchymosis to the proximolateral foot. Distal sensation intact. Capillary refill normal. Pedal pulse normal. Full range of motion of the ankle with increased pain to the lateral foot. SKIN: Warm, dry, no rash. Capillary refill normal. Normal skin turgor. NEURO: No focal deficits. Alert and oriented x3. Gait steady. PSYCH: Normal affect. No signs of depression or anxiety. Course Course Level of Care: Express Care Visit Vital Signs Vital signs: Vital Signs Temperature 97.7 F 10/27/24 13:33 Pulse Rate 85 10/27/24 13:33 Respiratory Rate 16 10/27/24 13:33 Blood Pressure 130/83 10/27/24 13:33 Pulse Oximetry 99 10/27/24 13:33 Oxygen Delivery Room Air 10/27/24 13:33 Temperature 97.7 F 10/27/24 13:33 Pulse Rate 85 10/27/24 13:33 Respiratory Rate 16 10/27/24 13:33 Blood Pressure 130/83 10/27/24 13:33 Pulse Oximetry 99 10/27/24 13:33 Oxygen Delivery Room Air 10/27/24 13:33 Reviewed MDM - Extremity Injury (Lower) MDM Narrative Medical decision making narrative: X-ray shows fracture at the base of the 5th metatarsal. Patient placed in a short-leg OCL and given crutches. Recommend follow-up with orthopedics or podiatry for further treatment. Patient has also been instructed to notify her OBGYN of her fall this afternoon. heart tones 142. Patient states baby is active as normal and she is having no cramping or spotting. Anticipatory guidance given. Differential Diagnosis Differential diagnosis: Likely ankle sprain and strain, ankle fracture and other (Foot fracture, contusion, sprain) Imaging Data Radiologist's impression: ITS Impressions Foot X-Ray 10/27/24 14:19 IMPRESSION: Fracture at the base of the fifth metatarsal bone. Critical Care Time Critical Care Time Critical Care Time: No Discharge Plan Discharge Clinical Impression: Closed nondisplaced fracture of fifth left metatarsal bone Patient Disposition: Home Condition: Stable Instructions: Foot Fracture in Adults (ED) Additional Instructions: Your x-ray shows a fracture of your foot. You have been placed in a temporary splint. Please keep this dry and intact until follow-up with orthopedics or podiatry. Use your crutches so you are not bearing weight. Elevate and ice the foot. Take Tylenol for pain if needed. As discussed, please notify your OBGYN if your fall this afternoon. Your blood pressure was elevated above 120/80 today at Urgent Care. This puts you above the threshold for follow up. Please schedule a followup visit with your personal physician as soon as possible, for further evaluation and treatment. Even blood pressure exceeding 120/80 may indicate pre-hypertension. Patient Language: Macedonian Prescriptions: No Action Follow-up/Referrals: Quique Mann DPM [Physician] - Bryon Benavidez Jr., DPM [Physician] - Vidhya,MD Carmen [Primary Care Provider] - Nicho Raines MD [Physician] - Time of Disposition: 14:37
--- OUTSIDE RECORDS SUMMARY | 2024-10-27 15:18 | XMS_ITS | Continuity of Care Document ---
Author Name [facility] Organization [facility] Care Team Providers Care Instrument Person Name Role Phone [facility] Unavailable Unavailable Problems Combined list of problems from Department of Defense and Veterans Affairs facilities. It does not include entries that were removed or entered in error. Problem Status Onset Date Problem Type Date of Resolution Comments Source SHOULDER IMPINGEMENT Active Condition DoD joint pain, localized in the shoulder Active Condition DoD foot pain (soft tissue) Active Condition DoD ankle joint pain Active Condition [facility] joint pain, localized Inactive Condition [facility] UPPER RESPIRATORY INFECTION Inactive Condition [facility] DEHYDRATION (Na, H2O) Inactive Condition [facility] PHARYNGITIS Inactive Condition [facility] REFRACTIVE ERROR Active Condition DoD visit for: services physical Active Condition [facility] visit for: screening exam pulmonary tuberculosis Active Condition DoD Allergies, Adverse Reactions, Alerts Combined list of allergies from Department of [facility] and [facility] facilities. It does not include entries that were removed or entered in error. Substance Category Reaction Severity Reaction type Status Date Reported Comments Source BACTRIM (SULFAMETHO XAZOLE/TRIM ETHOPRIM) Drug allergy (disorder) Rash active 4 [place] cephalexin Propensity to adverse reactions to substance Rash Active 4 Unknown Organizat ion KEFLEX (CEPHALEXIN ) Drug allergy (disorder) Rash active 4 [place] OTHER {Cla } Drug allergy (disorder) Rash, Other: LATEX active 4 [place] OTHER {Cla } Propensity to adverse reactions to substance Rash Active 4 System Message: Unknown Other - Missing Comment for unique id [id number] 11/20/2021 6:55:09 AM Unknown Organizat ion sulfamethox azole-trime thoprim Propensity to adverse reactions to substance Rash Active 4 Unknown Organizat ion Immunizations Combined list of available immunizations from the Department of Defense and Veterans Affairs facilities. Immunization Series Date Given Administered By Site Reaction Lot Number CVX Code Drug Electroplating Worker Status Comments Source influenza, injectable, quadrivalent- pf 2020 [id number] Seqirus complet ed influenza , injectabl e, quadrival ent-pf 01/18/21 Given Ambulat ory Pharmac y influenza, injectable, quadrivalent 2018 [id number] 158 Seqirus complet ed influenza , injectabl e, quadrival ent 01/16/19 Given Ambulat ory Pharmac y influenza virus vaccine, unspecified 2016 [id number] GlaxoSmithKli ne complet ed influenza virus vaccine, unspecifi ed 02/17/17 Given Ambulat ory Pharmac y influenza, seasonal, injectable-pf 2015 [id number] Seqirus complet ed influenza , seasonal, injectabl e-pf 01/19/16 Given Ambulat ory Pharmac y influenza, injectable, quadrivalent- pf 2014 [id number] GlaxoSmithKli ne complet ed influenza , injectabl e, quadrival ent-pf 02/11/15 Given Ambulat ory Pharmac y influenza, injectable, quadrivalent- pf 2014 [id number] sanofi pasteur complet ed influenza , injectabl e, quadrival ent-pf 07/13/14 Given Ambulat ory Pharmac y hepatitis A-hepatitis B vaccine 2013 [id number] GlaxoSmithKli ne complet ed hepatitis A-hepatit is B vaccine 10/06/13 Given Ambulat ory Pharmac y adenovirus vaccine, live 2013 [id number] 143 Teva Pharmaceutica complet ed adenoviru s vaccine, live 10/06/13 Given Ambulat ory Pharmac y influenza, seasonal, injectable-pf 2013 [id number] 140 sanofi pasteur complet ed influenza , seasonal, injectabl e-pf 10/06/13 Given Ambulat ory Pharmac y hepatitis A and hepatitis B vaccine 3 2013 [id number] 104 [employer] (SKB) complet ed hepatitis A and hepatitis B vaccine DoD Influenza, seasonal, injectable, preservative free 1 2013 [id number] Sanofi Pasteur (PMC) complet ed Influenza , seasonal, injectabl e, preservat sergio free [facility] Adenovirus, type 4 and type 7, live, oral 1 2013 [id number] 143 [facility] (BRR) complet ed Adenoviru s, type [...] vaccine DoD Novel influenza-H1N 1-09, injectable 2009 [id number] 127 MediNew[employer] Inc complet ed Novel influenza -[id number], injectabl e 07/08/09 Given Ambulat ory Pharmac y tetanus, diphtheria, acellular pertu is 2009 [id number] 115 GlaxoSmithKli ne complet ed tetanus, diphtheri a, acellular pertussis 07/08/09 Given Ambulat ory Pharmac y meningococcal A,C,Y,W-135 (MCV4P) 2009 [id number] 114 sanofi pasteur complet ed meningoco ccal A,C,Y,W-1 35 (MCV4P) 07/08/09 Given Ambulat ory Pharmac y influenza virus vaccine, live 2009 [id number] 111 Medimmune Inc comple t ed influenza [...] live, attenuated, for intranasal use 1 2009 [id number] 111 [employer]asa Systems[employer] Inc. (MED) complet ed influenza virus vaccine, live, attenuate d, for intranasa l use DoD meningococcal polysaccharid e (groups A, C, Y and W-135) diphtheria toxoid conjugate vaccine (MCV4P) 1 2009 [id number] 114 Sanofi Pasteur (PMC) complet ed meningoco ccal polysacch aride (groups A, C, Y and W-135) diphtheri a toxoid conjugate vaccine (MCV4P) DoD tetanus toxoid, reduced diphtheria toxoid, and acellular pertu is vaccine, adsorbed 1 2009 [id number] 115 [employer] (SKB) complet ed tetanus toxoid, reduced diphtheri a toxoid, and acellular pertussis vaccine, adsorbed DoD Novel influenza-H1N 1-09, injectable 1 2009 [id number] 127 [employer] Inc. (MED) complet ed Novel influenza -[id number], injectabl e DoD Encounters Combined list of: 1) Encounters from Department of Veterans Affairs facilities going backup to the last 18 months, not all VA inpatient encounters are included; 2) Encounters from the Department of Defense facilities going backup to 280 months. Location Location Details Encounter Type Encounter Number Reason For Visit Attending Provider ADM Date DC Date Status Disposition Source [facility](PES Optometry -Trainee) OUTPATIENT [id number] GAL DIAL 07/06 Released w/o Limitations [facility](P ES Optomet ry-Nick nee) [facility](DEEDEE C Post Immunizat ion) OUTPATIENT [id number] IET PPD RUBIA SEPULVEDA 07/06 Released w/o Limitations [facility](M AHC Post Immuniz ation) [facility] [place] OUTPATIENT [id number] TARI MANTILLA 07/22 Sick at Home/Quarter s [facility](T MC Ambulat ory) [facility](C Ambulator y) OUTPATIENT [id number] KAIDEN MONTGOMERY *EVER* 07/23 Released w/o Limitations [facility](T MC Ambulat ory) [facility] [place] [facility]) OUTPATIENT [id number] toe and low back pain AMBER WORTHINGTON 08/04 Released with Work/Duty Limitations [facility](F bela Rodriguez [employer]) [facility]([employer] [place] Bas) OUTPATIENT [id number] Ankle Pain SILVER SINGH 08/14 Immediate Referral Medical Group(F bela Michael [employer] Bas) [facility] [place] OUTPATIENT [id number] L Ankle (AT) - Initial Visit AMY CORONA 08/14 Released with Work/Duty Limitations [facility] Physica l Therapy ) [facility] [place]) OUTPATIENT [id number] TONPHYLLISANDREY Alcantara 08/23 Released with Work/Duty Limitations [facility] Ambulat ory) [facility] [place] OUTPATIENT [id number] L Shoulde r - Initial Visit AMY CORONA 08/24 Released with Work/Duty Limitations [facility] Physica l Therapy ) RONALDO Gregorio(Hearbobby g Conservat ion) OUTPATIENT [id number] Notes Entered by: Glenna TONEY 29 Sep 2013 0954 ------- ------- ------- ------- -- 95[address] JANEL TONEY 09/29 Released w/o Limitations [employer] [place](Hear [place] Conserv ation) RONALDO Gregorio(OST Optometry ) OUTPATIENT [id number] Notes Entered by: CARLOS MANUEL GONZALES 29 Sep 2013 1536 ------- ------- ------- ------- -- OST IET EMETERIO MADRID 09/29 Released w/o Limitations [facility] [place](OST Optomet ry) RONALDO Gregorio(OST Clinic) OUTPATIENT [id number] Notes Entered by: Anibal QUACH 07 Oct 2013 0817 ------- ------- ------- ------- -- SYED JACKMAN 10/07 Released w/o Limitations [facility] [place]) [facility] [place] Athlete) OUTPATIENT [id number] Notes Entered by: JESS CANAS CH 12 Oct 2013 0841 ------- ------- ------- ------- -- F/1-40 Foot Maria Estheral ROSSANA BAUTISTA 10/12 Released with Work/Duty Limitations [facility] [place] ) [facility] [place] Athlete) OUTPATIENT [id number] Notes Entered by: JESS CANAS CH 14 Oct 2013 1223 ------- ------- ------- ------- -- F/1-40 Foot F/U ROSSANA BAUTISTA 10/14 Released with Work/Duty Limitations [facility] [place] ) [facility] [place] Athlete) OUTPATIENT [id number] Notes Entered by: JESS CANAS CH 18 Oct 2013 0957 ------- ------- ------- ------- -- F/1-40 Foot F/U ROSSANA BAUTISTA 10/18 Released w/o Limitations [facility] [place] ) [facility] [place] OUTPATIENT [id number] Notes Entered by: QIANA CEJA 26 Oct 2013 1245 ------- ------- ------- ------- -- F (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) [facility]- SORE THROAT, CLARIBEL DANIEL 10/26 Released w/o Limitations [facility] [place]Emerge [place]cy Room) OUTPATIENT [id number] GAL LUIS 06/07 Released [place]/o Limitations [place] OUTPATIENT [id number] BARB MORALES 07/16 Released [place]/o Limitations [place]) OUTPATIENT [id number] S/FREQU ENT URINATI ON/PAIN WHILE URINATI RAMESH SIN 08/01 Released w/o Limitations [place] OUTPATIENT [id number] PT ST F/RUBIA DOHERTY 08/16 Released w/o Limitations [place] TELE CONSULT [id number] Notes Entered by: JAMES WHITE 10 Oct 2014 0948 ------- ------- ------- ------- -- PT STATED NEED LAB WORK AND ULTRA SOUND RESULTS ADAN BENJAMIN 10/10 [place] OUTPATIENT [id number] Follow up for labs and ultraso und RUBIA GERARD 10/24 Released w/o Limitations [place]([address] OUTPATIENT [id number] s/ fu meds RUBIA Hamlin 12/19 Released w/o Limitations [place] OUTPATIENT [id number] f/u for meds eval RUBIA GERARD ENOCH 01/19 [place]ased [place]/o Limitations [place] [place] OUTPATIENT [id number] SELF/ST ATES F/UP FOR OVARY CONCERN RAJANIRUBIA ENOCH 03/15 Released w/o Limitations [place]) Procedures Combined list of: 1) Procedures from Department of [facility] Affairs facilities going back up to thelast 18 months, not all [place] non-surgical procedures are included; 2) All procedures from the Department of Defense facilities. Procedure Procedure Type Code Date Perfomer Comments Sourc e No data available for this section Ambul[facility] ry Pharmacy ATHLETIC TRAINING RE-EVALUATION 10/19/19 14 [facility] FOOT PRESSURE OFF LOADING/SUPPORTIVE DEVICE, ANY TYPE, EACH 10/15/19 14 [facility] UNLISTED PROCEDURE, CASTING OR STRAPPING 10/13/19 14 [facility] HEPATITIS A AND HEPATITIS B VACCINE (HEPA-HEPB), ADULT DOSAGE, FOR INTRAMUSCULAR USE 10/08/19 14 [facility] FITTING OF SPECTACLES, EXCEPT FOR APHAKIA; MONOFOCAL 09/30/19 14 [facility] PATIENT EDUCATION, NOT OTHERWISE CLASSIFIED, NON-PHYSICIAN PROVIDER, GROUP, PER SESSION 09/30/19 14 [facility] THERAPEUTIC PROCEDURE,1 OR MORE AREAS,EACH 15 MINUTES;NEUROMUSCU LAR REEDUCATION OF MOVEMENT,BALANCE,C OORDINATION,KINEST HETIC SENSE,POSTURE,AND/ OR PROPRIOCEPTION FOR SITTING AND/OR STANDING ACTIVITIES 08/25/19 10 [facility] ANKLE ORTHOSIS, ANKLE GAUNTLET OR SIMILAR, WITH OR WITHOUT JOINTS, PREFABRICATED, [id number] 08/15/19 10 [facility] ATHLETIC TRAINING EVALUATION 08/15/19 10 [facility] EDUCATION &TRAINING, PATIENT SELF-MGT QUALIFIED, NONPHYSICIAN HEALTH VENTILATING EQUIPMENT INSTALLER USING STDIZED CURRICULUM, [id number] W THE PATIENT (COULD INCL CAREGIVER/FAMILY) EA 30 MIN; INDIVIDUAL PATIENT 08/05/19 10 [facility] INFUSION, NORMAL SALINE SOLUTION , 1000 CC 07/23/19 10 DoD SKIN TEST; TUBERCULOSIS, INTRADERMAL 07/06/19 10 [facility] FITTING OF SPECTACLES, EXCEPT FOR APHAKIA; MONOFOCAL 07/06/19 10 [facility] EAR MOLD/INSERT, NOT DISPOSABLE, ANY TYPE 07/06/19 10 [facility] Athletic Training Re-evaluation Athletic Training Re-evaluation 66684 10/19/19 14 ROSSANA BAUTISTA [facility] Foot pre ure off loading/supportive device, any type, each 10/15/19 14 ROSSANA BAUTISTA Athletic Training Re-evaluation Athletic Training Re-evaluation 77663 10/15/19 14 ROSSANA BAUTISTA Orthopedic Strapping Orthopedic Strapping 36514 10/13/19 14 ROSSANA BAUTISTA Arch Taping [facility] Athletic Training Evaluation Athletic Training Evaluation 14695 10/13/19 14 ROSSANA BAUTISTA Vaccines Adenovirus Type 4 Live, For Oral Use Vaccines Adenovirus Type 4 Live, For Oral Use 63496 10/11/19 14 SYED RAY [facility] Vaccines Adenovirus Type 7 Live, For Oral Use Vaccines Adenovirus Type 7 Live, For Oral Use 25383 10/11/19 14 SYED RAY [facility] Influenza Split Virus Vacc Age 3+ Years IM Preservative Free 10/11/19 14 FLORSYED CAGLE [facility] Hepatitis A And Hepatitis B (Intramuscular Use) Adult Dosage Hepatitis A And Hepatitis B (Intramuscular Use) Adult Dosage 63113 10/11/19 14 SYED RAY [facility] Immunization Admin By Intranasal / Oral Route One Vaccine Immunization Admin By Intranasal / Oral Route One Vaccine 92608 10/11/19 14 FLORSYED CAGLE [facility] Immunization Admin Intranasal / Oral Each Additional Vaccine Immunization Admin Intranasal / Oral Each Additional Vaccine 88745 10/11/19 14 FLORSYED CAGLE [facility] Immunization Administration Each Additional Vaccine Immunization Administration Each Additional Vaccine 35685 10/11/19 14 SYED RAY [facility] [employer] Fitting Monofocals (Not For Aphakia) [employer] [facility] Fitting Monofocals (Not For Aphakia) 25134 09/30/19 14 ARIANA GONZALES Screening Test Of Visual Acuity, Quantitative, Bilateral Screening Test Of Visual Acuity, Quantitative, Bilateral 82870 09/30/19 14 ARIANA GONZALES [facility] Ear Protector Attenuation Measurements Ear Protector Attenuation Measurements 66376 09/30/19 14 JANEL TONEY [facility] Audiometry Group Testing Audiometry Group Testing 52300 09/30/19 14 JANEL TONEY Patient education, not otherwise cla ified, non-physician provider, group, per se ion 09/30/19 14 JANEL TONYE Physical Therapy Neuromuscular Re-education Physical Therapy Neuromuscular Re-education 88158 08/25/19 10 AMY CORONA Patient Counseling Medical Management Individual Patient Patient Counseling Medical Management Individual Patient [id number] 08/25/19 10 AMY CORONA Physical Medicine Physical Therapy Evaluation Physical Medicine Physical Therapy Evaluation 76531 08/25/19 10 AMY CORONA Ankle orthosis, ankle gauntlet or similar, with or without joints, prefabricated, [id number] 08/15/19 10 AMY CORONA Patient Counseling Medical Management Individual Patient Patient Counseling Medical Management Individual Patient 04690 08/15/19 10 AMY CORONA Physical Medicine Physical Therapy Evaluation Physical Medicine Physical Therapy Evaluation 84016 08/15/19 10 AMY CORONA Athletic Training Evaluation Athletic Training Evaluation 44397 08/15/19 10 SILVER SINGH Athletic Training Re-evaluation Athletic Training Re-evaluation 90982 08/08/19 10 AMBER WORTHINGTON Patient Counseling Medical Management Individual Patient Patient Counseling Medical Management Individual Patient 23532 08/05/19 10 AMBER WORTHINGTON Athletic Training Evaluation Athletic Training Evaluation 75335 08/05/19 10 AMBER [place] Taping Toes Taping Toes 43081 08/05/19 10 AMBER [place]THINGTON hallux MTPJ, on [id number] & [id number] Antonette Chapa Supervised Injection Intramuscular Antibiotic Supervised Injection Intramuscular Antibiotic 95288 07/23/19 10 TARI MANTILLA Parenteral Fluids IV Infusion As Concurrent Hydration Parenteral Fluids IV Infusion As Concurrent Hydration 95779 07/23/19 10 TARI MANTILLA Visual Function Screening Visual Function Screening 03775 07/06/19 10 [facility] [employer] [facility] Fitting Monofocals (Not For Aphakia) [employer] [facility] Fitting Monofocals (Not For Aphakia) 47442 07/06/19 10 [facility] Skin Test Anergy Tuberculin Intradermal Skin Test Anergy Tuberculin Intradermal 55409 07/06/19 10 RUBIA SEPULVEDA Immunization Administration One Vaccine Immunization Administration One Vaccine 32346 07/06/19 10 RUBIA SEPULVEDA Social History Combined list of available smoking, tobacco, and other social history from Department of Defense and Veterans Affairs facilities. Social History Type Response Date Comment Sourc e Sexual Orientation Ambula tory Pharmacy Gender identity Ambulator y Pharmacy Sex Representation Female (finding) Unknown Organization This section is an empty soc [...] Plan No data available for this section 10/27/2024 Ambulatory Pharmacy Functional Status Combined list of recent functional and cognitive assessments recorded at Department of Defense and Veterans Affairs (VA).VA Functional [place] Measurement (FIM) Scale: 1 = Total Assistance (Subject = 0% +), 2 = Maximal Assistance (Subject = 25% +), 3 = Moderate Assistance (Subject = 50% +), 4 = Minimal Assistance (Subject = 75% +), 5 = Supervision, 6 = Modified Teton (Device), 7 = Complete Teton (Timely, Safely). Assessment Date/Time Source Assessment Type Assessment Skill Assessment Score Assessment Details No data available for this section
== END 2024-10-27 14:46 | disposition home or self-care (01) ==
PROVIDERS: Emergency Provider Nurse Practitioner; PCP Family Medicine
DX: O9A.213 Injury, poisoning and certain other consequences of external causes complicating pregnancy, third trimester (principal); Z3A.32 32 weeks gestation of pregnancy; S92.352A Displaced fracture of fifth metatarsal bone, left foot, initial encounter for closed fracture; W10.9XXA Fall (on) (from) unspecified stairs and steps, initial encounter
CPT/HCPCS: 29515; 73630; 99214; G0463